=== PATIENT | female | born 1940 | race Caucasian/White ===

== ENCOUNTER 2018-10-18 16:42 | Emergency (ER) | payer OTHER ==
--- OUTSIDE RECORDS SUMMARY | 2018-10-18 16:44 | XMS REPORT | Clinical Summary ---
:1940 Author Organization [facility] Address [address] [place] [address] Care Team Providers Name Role Phone Naeem Barone MD Primary Care Provider Allergies Active Allergy Reactions Severity Noted Date Comments Latex 2017 Penicillins 2017 Medications Medication Sig Dispensed Refills Start End Date Status Date lisinopril Take 20 mg by 1 Active (PRINIVIL,ZESTRIL) mouth every 7 20 mg tablet morning. KLOR-CON SPRINKLE 8 Take 8 mEq by 1 Active mEq CR capsule mouth every 7 morning. simvastatin (ZOCOR) Take 10 mg by 3 Active 10 MG tablet mouth every 7 evening. triamterene-hydroch Take 1 tablet by 1 Active lorothiazid mouth every 7 (MAXZIDE-25) morning. 37.5-25 mg per tablet gabapentin Take 600 mg by 0 Active (NEURONTIN) 600 mg mouth 3 (three) tablet times a day. UNABLE TO FIND hylans muscle 0 Active cramps ondansetron ODT Take 1 tablet (4 30 tablet 0 11/10/19 Active (ZOFRAN-ODT) 4 MG mg total) by 06 08 disintegrating mouth every 8 tablet (eight) hours as needed for nausea or vomiting for up to 30 days. aspirin (ECOTRIN) Take 1 tablet (81 60 tablet 0 11/10/19 Active 81 MG enteric mg total) by 06 08 coated tablet mouth 2 (two) times a day for 30 days. docusate sodium Take 1 capsule 30 capsule 0 11/10/19 Active (COLACE) 100 MG (100 mg total) by 9 19 capsule mouth 2 (two) times a day as needed for constipation for up to 30 days. celecoxib Take 1 capsule 30 capsule 0 11/10/19 Active (CeleBREX) 200 MG (200 mg total) by 9 19 capsule mouth daily for 30 days. naloxegol Take 1 tablet (25 15 tablet 0 Active (MOVANTIK) 25 mg mg total) by 9 tablet tablet mouth daily before breakfast. celecoxib TK 1 C PO BID WC 2 09/27/19 Discontinued (CeleBREX) 200 MG 7 19 capsule HYDROcodone-acetami TK 1 TO 2 TS PO Q 0 09/27/19 Discontinued nophen (NORCO) 4 TO 6 H PRF PAIN 7 19 10-325 mg per tablet ondansetron TK 1 T PO Q 8 H 0 09/27/19 Discontinued (ZOFRAN) 4 MG PRF NAUSEA OR VOM 7 19 tablet methocarbamol Take 750 mg by 0 09/27/19 Discontinued (ROBAXIN) 750 MG mouth 4 (four) 19 tablet times a day. naloxegol Take 1 tablet (25 15 tablet 0 10/12/19 Discontinued (MOVANTIK) 25 mg mg total) by 9 19 tablet tablet mouth daily before breakfast. 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 09/07/2018 Overview: Added automatically from request for surgery [id number] Osteoarthritis of left knee 03/15/2017 Encounters Date Type Specialty Care Team Description 10/12/2018 Orders Only Orthopedic Surgery Yen Edmonds PA 10/11/2018 Patient Outreach Peg Osborne RN 10/10/2018 Anesthesia Event Orthopedic Surgery Guanako Busch MD 10/10/2018 Surgery Orthopedic Surgery Juan Huff Alan, MD ARTHROPLASTY, KNEE 10/10/2018 - Hospital Encounter Orthopedic Surgery Juan Huff Status post total knee replacement, right (Primary Dx); 10/11/2018 MD Berto Primary osteoarthritis of right knee; 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, initial encounter (HCC); Painful orthopaedic hardware ([facility]) 09/27/2018 Pre-Admit Testing Pre-Admission Daria Juan Preop testing ( Primary Dx); Appointment Testing MD Berto Primary osteoarthritis of right knee; 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, initial encounter ([facility]) 09/27/2018 Hospital Encounter Radiology Daria Juan Primary osteoarthritis of right knee; MD Berto 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, initial encounter ([facility]) 09/07/2018 Orders Only Orthopedic Surgery Jolene Jones, Primary osteoarthritis of right knee (Primary Dx); MA 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, initial encounter ([facility]) 09/06/2018 Office Visit Orthopedic Surgery DariaJuan jauregui Primary MD Berto osteoarthritis of left knee (Primary Dx) 09/06/2018 Orders Only Orthopedic Surgery JonesRaquelia, Primary osteoarthritis of right knee (Primary Dx); MA 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, initial encounter ([facility]) 09/05/2018 Orders Only Orthopedic Surgery Jolene Jones, Right knee pain, MA unspecified chronicity (Primary Dx) after 10/17/2017 Family History Medical History Relation Name Comments Cancer Maternal Aunt ANIL BROWN Relation Name Status Comments Maternal Aunt ANIL BROWN Social History Tobacco Use Types Packs/Day Years Used Date Never Smoker Smokeless Tobacco: Never Used Comments: N/A Alcohol Use Drinks/Week oz/Week Comments No Sex Assigned at Date Recorded Not on file Job Start Date Occupation Industry Not on file Not on file Not on file Travel History Travel Start Travel End No recent travel history available. Last Filed Vital Signs Vital Sign Reading Time Taken Blood Pressure 119/58 10/11/2018 11:18 AM IMMIGRATION PATROL INSPECTOR Pulse 77 10/11/2018 11:18 AM IMMIGRATION PATROL INSPECTOR Temperature 37 C (98.6 F) 10/11/2018 11:18 AM IMMIGRATION PATROL INSPECTOR Respiratory Rate 16 10/11/2018 11:18 AM IMMIGRATION PATROL INSPECTOR Oxygen Saturation 96% 10/11/2018 11:41 AM IMMIGRATION PATROL INSPECTOR Inhaled Oxygen Concentration - - Weight 76.5 kg (168 lb 9.6 oz) 10/10/2018 6:08 AM IMMIGRATION PATROL INSPECTOR Height 160 cm (5' 3") 10/10/2018 6:08 AM IMMIGRATION PATROL INSPECTOR Body Mass Index 29.87 10/10/2018 6:08 AM IMMIGRATION PATROL INSPECTOR Plan of Treatment Date Type Specialty Care Team Description 10/24/2018 Office Visit Orthopedic Surgery Yen Edmonds PA [address] [place] [address] [phone] Health Maintenance Due Date Last Done Comments SHINGLES VACCINES (1 of 2) 1990 PNEUMOCOCCAL POLYSACCHARIDE VACCINE AGE 65 AND OVER 2005 PNEUMOCOCCAL-13 2005 INFLUENZA VACCINE Completed 07/09/2018 Implants Implanted Type Area Manager Crisis Device Shelf Model / Identifier Expiration Serial / Lot Date Legion Narrow Ps Oxin Sz 5n Rt - [id number] IMPLANT N/A: [employer]W 02/13/2028 [id number] / Implanted: Qty: 1 on 10/10/2018 by Juan Huff MD DEVICES Knee ORTHOPAEDICS / [id number] Pin Fxtn W/O Head 3.2x88mm - [id number] Knee Joint N/A: AESCULAP ORTHO [id number] / Implanted: Qty: 2 on 03/15/2017 by Naeem Wesley MD Implants N/A / Pin Headed Thred Univl 3.2x25mm Blackwell - [id number] Knee Joint N/A: AESCULAP ORTHO [id number] / Implanted: Qty: 2 on 03/15/2017 by Naeem Wesley MD Implants N/A / Pin Headls Thred Univl 3.2x63mm Blackwell - [id number] Knee Joint N/A: AESCULAP ORTHO [id number] / Implanted: Qty: 6 on 03/15/2017 by Naeem Wesley MD Implants N/A / Implant Ptlr Sunita Ii Rsrfcng Uhmwpe 9x29mm - [id number] Knee Joint Right: ART AND 05/01/2028 [id number] / Implanted: Qty: 1 on 10/10/2018 by Juan Huff MD Implants Knee NEPHEW / ORTHOPEDICS [id number] Insert Artclr P-Stb Hi Flxon Lnr Xlpe Sz 3-4 9mm Legion - [id number] Knee Joint Right: ART AND 03/20/2024 [id number] / Implanted: Qty: 1 on 10/10/2018 by Juan Huff MD Implants Knee NEPHEW / ORTHOPEDICS [id number] Screw Obtrtr Closng For Plat 1-3+ 12mm Jaime - [id number] Orthopedic Left: AESCULAP ORTHO 11/17/2026 [id number] / Implanted: Qty: 1 on 03/15/2017 by Naeem Wesley MD Surgical Knee / Implants [id number] Component Tib Cementd P-Stb Cr Modlr Std #1+ - [id number] Orthopedic Left: AESCULAP ORTHO 04/20/2020 [id number] / Implanted: Qty: 1 on 03/15/2017 by Naeem Wesley MD Surgical Knee / Implants [id number] Insert Tib Gldng Surf Cr Deep [facility] #1/1+ 10mm - [id number] Orthopedic Left: AESCULAP ORTHO 06/20/2017 [id number] / Implanted: Qty: 1 on 03/15/2017 by Naeem Wesley MD Surgical Knee / Implants [id number]^ Patella Knee 3 Peg P2 30x8mm Jaime - [id number] Orthopedic Left: AESCULAP ORTHO 03/19/2020 [id number] / Implanted: Qty: 1 on 03/15/2017 by Naeem Wesley MD Trauma Knee / Implants [id number] Component Fml Cementd Cr Nrw Lt Rp Std #5 - [id number] Orthopedic Left: AESCULAP 07/20/2026 [id number] / Implanted: Qty: 1 on 03/15/2017 by Naeem Wesley MD Trauma Knee IMPLANT SYSTEMS / Implants [id number] Implant Tib Sunita Ii N-Por Rt Ti Sz 3 - [id number] Orthopedic Right: ART BROWN 04/23/2028 [id number] / Implanted: Qty: 1 on 10/10/2018 by Juan Huff MD Trauma Knee NEPHEW / Implants ORTHOPEDICS [id number] Cement Bone Full-Dose Premxd W/ Tobr Simplex P Pack 10/Ea - [id number] Surgical Bone Left: MARIBEL 06/19/2018 [id number] / Implanted: Qty: 2 on 03/15/2017 by Naeem Wesley MD Cement Knee ORTHOPEDICS / HIPS-KNEES [id number] Cement Bone Refobacin R 40g - [id number] Surgical Bone Right: [employer] 10/20/2020 [id number] / Implanted: Qty: 1 on 10/10/2018 by Juan Huff MD Cement Knee / [id number] Implant Procedures Procedure Name Priority Date/Time Associated Diagnosis Comments PROTHROMBIN TIME Routine 10/11/2018 3:20 Results for this WITH INR AM IMMIGRATION PATROL INSPECTOR procedure are in the results section. HC COMPLETE BLD Routine 10/11/2018 3:20 Results for this COUNT W/AUTO DIFF AM IMMIGRATION PATROL INSPECTOR procedure are in the results section. XR KNEE 1 OR 2 VW Routine 10/10/2018 9:50 Results for this RIGHT AM IMMIGRATION PATROL INSPECTOR procedure are in the results section. SURGICAL PATHOLOGY Routine 10/10/2018 9:19 Results for this REQUEST AM IMMIGRATION PATROL INSPECTOR procedure are in the results section. GRAM STAIN Timed 10/10/2018 8:14 Results for this AM IMMIGRATION PATROL INSPECTOR procedure are in the results section. AFB STAIN Timed 10/10/2018 8:14 Results for this AM IMMIGRATION PATROL INSPECTOR procedure are in the results section. FUNGUS SMEAR Timed 10/10/2018 8:14 Results for this AM IMMIGRATION PATROL INSPECTOR procedure are in the results section. 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 encounter ([facility]) AZ AN ELECTIVE Routine 10/10/2018 8:10 SUPRAGLOTTIC AIRWAY AM IMMIGRATION PATROL INSPECTOR Procedure Note - Max Wyman Jr., CRNA - 10/10/2018 8:10 AM IMMIGRATION PATROL INSPECTOR Airway Date/Time: 10/10/2018 7:42 AM Performed by: Max Wyman Jr., CRNA Authorized by: Guanako Busch MD Location: OR Urgency: Elective Difficult Airway: No Anesthesiologist: Guanako Busch MD Resident/RELOCATION ASSOCIATE/AA: Soldner, Max Ulisses Jr., RELOCATION ASSOCIATE Performed by: resident/RELOCATION ASSOCIATE/AA Preoxygenated with 100% O2: Yes C-spine Precautions Maintained Throughout: Yes Mask Ventilation: Not attempted Final Airway Type: Supraglottic airway Final LMA: I-Gel LMA Size: 4 Number of Attempts at Approach: 1 Placed by SRNA. Hilda Lips and teeth intact as in preop. 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, initial encounter ([facility]) Special Needs 1 hour; Rodrigues & Nephew; Henry Ozyp rep; Supine position with arms extended less than 90 degrees; Jermain Footholder; pink foam under Non-operative leg; Venaflow on Non-Operative leg, rodrigues and nephewarrival [id number] mg clindamycin, INTRAOSSEOUS VANC, 500 mg vanc in 200 ccs of salinepost op 2/4 AZ AN SPINAL BLOCK POST-OP PAIN Routine 10/10/2018 7:04 AM IMMIGRATION PATROL INSPECTOR Procedure Note - Guanako Busch MD - 10/10/2018 7:04 AM IMMIGRATION PATROL INSPECTOR Spinal Block Date/Time: 10/10/2018 7:03 AM Performed by: Guanako Busch MD Authorized by: Guanako Busch MD Patient Location: Pre-op Start Time: 10/10/2018 7:00 AM End Time: 10/10/2018 7:03 AM Reason for Block: at surgeon's request, post-op pain management Staff: Anesthesiologist: Guanako Busch MD Preprocedure: patient identified, IV checked, site and side verified, risks and benefits discussed, procedure verified, surgical consent complete, patient position confirmed, monitors and equipment checked and pre-op evaluation complete TIme Out Performed: 10/10/2018 6:57 AM Spinal Block: Patient Position: Sitting Prep: Betadine Monitoring: Blood pressure monitoring, continuous pulse oximetry and heart rate Approach: Midline Interspace: L2-3 Injection Technique: Single injection Needle: Needle Type: Quincke Needle Gauge: 22 G Assessment: Block assessment: No apparent complications and patient tolerated procedure well Post procedure: Patient returned to supine position Medications Administered Bupivacaine 0.75% PF (mL), 0.8 mL fentaNYL (SUBLIMAZE), 20 mcg POC GLUCOSE Routine 10/10/2018 6:01 Results for this AM IMMIGRATION PATROL INSPECTOR procedure are in the results section. URINE CULTURE Routine 09/27/2018 4:42 Results for this PM IMMIGRATION PATROL INSPECTOR procedure are in the results section. ECG 12-LEAD Routine 09/27/2018 3:20 Primary Results for this PM IMMIGRATION PATROL INSPECTOR osteoarthritis of procedure are in right knee the results Pain due to hip joint section. prosthesis, initial encounter ([facility]) TYPE AND SCREEN Routine 09/27/2018 2:59 Preop testing Results for this PM IMMIGRATION PATROL INSPECTOR procedure are in the results section. ESTIMATED GFR Routine 09/27/2018 2:57 Results for this PM IMMIGRATION PATROL INSPECTOR procedure are in the results section. HC COMPLETE BLD COUNT Routine 09/27/2018 2:57 Primary Results for this W/AUTO DIFF PM IMMIGRATION PATROL INSPECTOR osteoarthritis of procedure are in right knee the results Pain due to hip joint section. prosthesis, initial encounter ([facility]) COMPREHENSIVE Routine 09/27/2018 2:57 Primary Results for this METABOLIC PANEL PM IMMIGRATION PATROL INSPECTOR osteoarthritis of procedure are in right knee the results Pain due to hip joint section. prosthesis, initial encounter ([facility]) HEMOGLOBIN A1C Routine 09/27/2018 2:57 Primary Results for this PM IMMIGRATION PATROL INSPECTOR osteoarthritis of procedure are in right knee the results Pain due to hip joint section. prosthesis, initial encounter ([facility]) HEPATITIS B SURFACE Routine 09/27/2018 2:57 Primary Results for this ANTIBODY PM IMMIGRATION PATROL INSPECTOR osteoarthritis of procedure are in right knee the results Pain due to hip joint section. prosthesis, initial encounter (HCC) HEPATITIS C ANTIBODY Routine 09/27/2018 2:57 Primary Results for this PM IMMIGRATION PATROL INSPECTOR osteoarthritis of procedure are in right knee the results Pain due to hip joint section. prosthesis, initial encounter ([facility]) PARTIAL THROMBOPLASTIN Routine 09/27/2018 2:57 Primary Results for this TIME (PTT) PM IMMIGRATION PATROL INSPECTOR osteoarthritis of procedure are in right knee the results Pain due to hip joint section. prosthesis, initial encounter ([facility]) PROTHROMBIN TIME WITH Routine 09/27/2018 2:57 Primary Results for this INR PM IMMIGRATION PATROL INSPECTOR osteoarthritis of procedure are in right knee the results Pain due to hip joint section. prosthesis, initial encounter ([facility]) URINALYSIS SCREEN AND Routine 09/27/2018 2:57 Primary Results for this MICROSCOPY, WITH PM IMMIGRATION PATROL INSPECTOR osteoarthritis of procedure are in REFLEX TO CULTURE right knee the results Pain due to hip joint section. prosthesis, initial encounter ([facility]) XR CHEST 2 VW Routine 09/27/2018 2:33 Primary Results for this PM IMMIGRATION PATROL INSPECTOR osteoarthritis of procedure are in right knee the results Pain due to hip joint section. prosthesis, initial encounter ([facility]) XR LEG LENGTH Routine 09/06/2018 1:10 Right knee pain, Results for this EVALUATION PM IMMIGRATION PATROL INSPECTOR unspecified procedure are in chronicity the results section. XR KNEE 3 VW RIGHT Routine 09/06/2018 1:09 Right knee pain, Results for this PM IMMIGRATION PATROL INSPECTOR unspecified procedure are in chronicity the results section. after 10/17/2017 Results Prothrombin time with INR (10/11/2018 3:20 AM IMMIGRATION PATROL INSPECTOR)Only the most recent of2 resultswithin the time period is included. Prothrombin time 13.6 11.5 - 14.5 sec [facility] INR 1.1 [facility] Comment: HOSPITAL The International Normalized Ratio (INR) is a therapeutic monitoring tool for patients who are stable on oral anticoagulant therapy. An INR of 2.0-3.0 is suggested for deep vein thrombosis/pulmonary embolism. Specimen Blood Performing Organization Address City/State/Zipcode Phone Number [facility] DEPARTMENT OF PATHOLOGY AND [address] [place] [address] GENOMIC MEDICINE [facility] [address] [place] [phone] CBC with platelet and differential (10/11/2018 3:20 AM IMMIGRATION PATROL INSPECTOR)Only the most recent of2 resultswithin the time period is included. WBC 8.87 4.50 - 11.00 k/uL [facility] RBC 3.31 (L) 4.20 - 5.50 m/uL [facility] HGB 10.4 (L) 12.0 - 16.0 g/dL [facility] HCT 31.4 (L) 37.0 - 47.0 % [facility] MCV 94.9 82.0 - 100.0 fL [facility] MCH 31.4 27.0 - 34.0 pg [facility] MCHC 33.1 31.0 - 37.0 g/dL [facility] RDW - SD 42.3 37.0 - 55.0 fL [facility] MPV 10.2 8.8 - 13.2 fL [facility] Platelet count 148 (L) 150 - 400 k/uL [facility] Nucleated RBC 0.00 /100 WBC [facility] Neutrophils 83.7 (H) 39.0 - 69.0 % [facility] Lymphocytes 10.1 (L) 25.0 - 45.0 % [facility] Monocytes 5.5 0.0 - 10.0 % [facility] Eosinophils 0.3 0.0 - 5.0 % [facility] Basophils 0.2 0.0 - 1.0 % [facility] Immature granulocytes 0.2Comment: "Immature 0.0 - 1.0 % [facility] granulocytes" HOSPITAL (promyelocytes, myelocytes, metamyelocytes) Specimen Blood Performing Organization Address City/[facility]/Zipcode Phone Number [facility] DEPARTMENT OF PATHOLOGY AND [address] [place], [place] [phone] GENOMIC MEDICINE [address] [address] XR Knee 1 Or 2 Vw Right (10/10/2018 9:50 AM IMMIGRATION PATROL INSPECTOR) Narrative Performed At EXAMINATION: XR KNEE 1 OR 2 VW RIGHT [facility] INDICATION: total knee arthoplasty COMPARISON: 09/06/2018 IMPRESSION: 2 views of the right knee were obtained which demonstrate expected postoperative changes from recent total knee arthroplasty with appropriate implant alignment. [facility]-[id number] Procedure Note Interface, Radiology Results Incoming - 10/10/2018 10:07 AM IMMIGRATION PATROL INSPECTOR EXAMINATION: XR KNEE 1 OR 2 VW RIGHT INDICATION: total knee arthoplasty COMPARISON: 09/06/2018 IMPRESSION: 2 views of the right knee were obtained which demonstrate expected postoperative changes from recent total knee arthroplasty with appropriate implant alignment. [facility]-[id number] Performing Organization Address [facility] Cent[facility]ode Phone Number [facility] [address] [place] [phone] Surgical pathology request (10/10/2018 9:19 AM IMMIGRATION PATROL INSPECTOR) [facility] DEPARTMENT OF PATHOLOGY AND GENOMIC MEDICINE Surgical pathology report See link below for PDF [facility] DEPARTMENT OF Lab Report PATHOLOGY AND GENOMIC MEDICINE Result status This is Final Report [facility] DEPARTMENT OF for [id number] PATHOLOGY AND GENOMIC MEDICINE Performing Organization Address City/[facility]/Zipcode Phone Number [facility] DEPARTMENT OF PATHOLOGY AND [address] [place], [place] [phone] GENOMIC MEDICINE Fungus smear (10/10/2018 8:14 AM IMMIGRATION PATROL INSPECTOR) Fungus smear No fungi observed. [facility] Comment: Specimen Information Specimen Source: Tissue Specimen Site: Knee Specimen Tissue - Knee Performing Organization Address City/[facility]/Zipcode Phone Number [facility] DEPARTMENT OF PATHOLOGY AND [address] [place], [place] [phone] [address] [address] Aerobic culture (10/10/2018 8:14 AM IMMIGRATION PATROL INSPECTOR) Aerobic culture isolate No growth after 3 days. [facility] Comment: Specimen Information Specimen Source: Tissue Specimen Site: Knee Specimen Tissue - Knee Performing Organization Address City/[facility]/Zipcode Phone Number [facility] DEPARTMENT OF PATHOLOGY AND [address] [place] [address] [place] [phone] Gram stain (10/10/2018 8:14 AM IMMIGRATION PATROL INSPECTOR) Gram stain isolate Few WBC's [facility] No organisms seen Comment: Specimen Information Specimen Source: Tissue Specimen Site: Knee Specimen Tissue - Knee Performing Organization Address City/[facility] Centercode Phone Number [facility] DEPARTMENT OF PATHOLOGY AND [address] [place] [phone] AFB stain (10/10/2018 8:14 AM IMMIGRATION PATROL INSPECTOR) AFB stain No acid fast bacilli (AFB) seen. [facility] Comment: Specimen Information Specimen Source: Tissue Specimen Site: Knee Specimen Tissue - Knee Performing Organization Address City/[facility] Centercode Phone Number [facility] DEPARTMENT OF PATHOLOGY AND [address] [place] [phone] Anaerobic culture (10/10/2018 8:14 AM IMMIGRATION PATROL INSPECTOR) Anaerobic culture isolate No anaerobic organisms isolated. [facility] Comment: HOSPITAL Specimen Information Specimen Source: Tissue Specimen Site: Knee Specimen Tissue - Knee Performing Organization Address City/[facility] Centercode Phone Number [facility] DEPARTMENT OF PATHOLOGY AND [address] [place] [phone] POC glucose (10/10/2018 6:01 AM IMMIGRATION PATROL INSPECTOR) POC glucose 104 (H) 65 - 99 mg/dL [facility] Comment: [facility] Notified RN Meter ID: [id number] Steam Frame Operator: Yared Adames Performing Organization Address City/[facility]/Zipcode Phone Number [facility] DEPARTMENT OF PATHOLOGY AND [address] [place] [address] [address] Urine culture (09/27/2018 4:42 PM IMMIGRATION PATROL INSPECTOR) Urine culture SEE COMMENTComment: Bacteriuria [facility] screen negative. Performing Organization Address City/State/Zipcode Phone Number [facility] DEPARTMENT OF PATHOLOGY AND [address] [place] [phone] [address] ECG 12 lead (09/27/2018 3:20 PM IMMIGRATION PATROL INSPECTOR) Ventricular rate 64 [facility] MUSE Atrial rate 64 [facility] MUSE AZ interval 154 [facility] QRSD interval 94 [facility] QT interval 424 [facility] QTC interval 437 [facility] P axis 1 53 [facility] QRS axis 1 16 [facility] T wave axis 43 [facility] MUSE EKG impression Normal sinus rhythm-Minimal voltage criteria for LVH, may be normal variant-Nonspecific T wave abnormality-Abnormal ECG-In automated comparison with ECG of 15-MAR-2014 12:27,-Nonspecific T wave abnormal [facility] MUSE ity, worse in Lateral leads- Narrative Performed At Performing Organization Address City/State/Zipcode Phone Number [address] [id number] Type and screen (09/27/2018 2:59 PM IMMIGRATION PATROL INSPECTOR) ABO grouping O [facility] Rh type POS [facility] Antibody screen (gel) NEG [facility] Specimen Blood Performing Organization Address City/State/Zipcode Phone Number [facility] DEPARTMENT OF PATHOLOGY AND [address] [place] [phone] [phone] Urinalysis screen and microscopy, with reflex to culture (09/27/2018 2:57 PM IMMIGRATION PATROL INSPECTOR) Specimen site Clean catch [facility] Color, UA Straw [facility] Appearance, UA Clear [facility] Specific gravity, UA 1.014 1.001 - 1.035 [facility] pH, UA 6.0 5.0 - 8.5 [facility] Protein, UA Negative Negative [facility] Glucose, UA Negative Negative [facility] Ketones, UA Negative Negative [facility] Bilirubin, UA Negative Negative [facility] Blood, UA Negative Negative [facility] Nitrite, UA Negative Negative [facility] Urobilinogen, UA <2.0 <2.0 [facility] Leukocyte esterase, UA Negative Negative [facility] Epithelial cells, UA 1 /HPF [facility] WBC, UA 1 0 - 4 /HPF [facility] RBC, UA 1 0 - 5 /HPF [facility] Bacteria, UA None seen None seen [facility] Yeast, UA None seen [facility] Yeast with pseudohyphae, UA None seen [facility] Hyaline casts, UA 1 /LPF [facility] Specimen Urine Performing Organization Address City/[facility] Phone Number [facility] DEPARTMENT OF PATHOLOGY AND [address] [place] [address] Estimated GFR (09/27/2018 2:57 PM IMMIGRATION PATROL INSPECTOR) Estimated GFR 67 mL/min/1.73 m2 [facility] Comment: HOSPITAL CatergoryUnitsInterpretation G1 >=90 Normal or high G2 60-89Mildly decreased [id number] to moderately decreased [id number] to severely decreased G4 15-29Severely decreased G5 <15Kidney failure The eGFR was calculated using the Chronic Kidney Disease Epidemiology Collaboration (CKD-EPI) equation. Interpretation is based on recommendations of the National Kidney Foundation-Kidney Disease Outcomes Quality Initiative (NKF-KDOQI) published in 2014. Specimen Plasma specimen Performing Organization Address City/[facility] Cent[facility] Phone Number [facility] DEPARTMENT OF PATHOLOGY AND [address] [place] [address] Hepatitis C antibody (09/27/2018 2:57 PM IMMIGRATION PATROL INSPECTOR) Hepatitis C Ab Non-reactive Non-reactive [facility] Specimen Urine Performing Organization Address City/[facility]ode Phone Number [facility] DEPARTMENT OF PATHOLOGY AND [address] [place] [phone] Hepatitis B surface antibody (09/27/2018 2:57 PM IMMIGRATION PATROL INSPECTOR) Hepatitis B surface Ab Non-reactive Non-reactive [facility] Specimen Urine Performing Organization Address City/State/Zipcode Phone Number [facility] DEPARTMENT OF PATHOLOGY AND [address] [place], [place] [address] [place] [phone] Partial thromboplastin time, activated (09/27/2018 2:57 PM IMMIGRATION PATROL INSPECTOR) PTT 29.7 23.0 - 36.0 sec [facility] Comment: PTT therapeutic range for unfractionated heparin is 61.0-112.0 seconds which corresponds to Anti-Xa 0.3-0.7 U/ml. Specimen Blood Performing Organization Address City/[facility]/Zipcode Phone Number [facility] DEPARTMENT OF PATHOLOGY AND [address] [place] [address] Hemoglobin A1c (09/27/2018 2:57 PM IMMIGRATION PATROL INSPECTOR) Hemoglobin A1C 5.6 4.0 - 5.6 % [facility] Comment: HbA1c cutoffs for diagnosing diabetes: 4.0% - 5.6%=normal 5.7% - 6.4%=increased risk for diabetes (prediabetes) >=6.5%=diabetes Goals for glycemic control (ADA 2016) < 7.0%Target for non adults with diabetes. More or less stringent targets may be appropriate for individual patients. <7.5% Target for Children and adolescents with type 1 diabetes. Specimen Urine Performing Organization Address City/[facility]/Zipcode Phone Number [facility] DEPARTMENT OF PATHOLOGY AND [address] [address] Comprehensive metabolic panel (09/27/2018 2:57 PM IMMIGRATION PATROL INSPECTOR) Sodium 136 135 - 148 mEq/L [facility] Potassium 3.8 3.5 - 5.0 mEq/L [facility] Chloride 98 98 - 112 mEq/L [facility] CO2 28 24 - 31 mEq/L [facility] Anion gap 10@ANIO 7 - 15 mEq/L [facility] BUN 17 8 - 23 mg/dL [facility] Creatinine 0.83 0.50 - 0.90 mg/dL [facility] Glucose 128 (H) 65 - 99 mg/dL [facility] Calcium 9.5 8.8 - 10.2 mg/dL [facility] Protein 7.1 6.3 - 8.3 g/dL [facility] Comment: [facility] [place] 4.6-7.0 g/dL 1 week 4.4-7.6 g/dL 7 months-1year5.1-7.3 g/dL 1-2 years5.6-7.5 g/dL >3 years6.0-8.0 g/dL 18-150 6.3-8.3 g/dL Albumin 4.0 3.5 - 5.0 g/dL [facility] A/G ratio 1.3 0.7 - 3.8 [facility] Alkaline phosphatase 103 35 - 104 U/L [facility] AST 22 10 - 35 U/L [facility] ALT 17 5 - 50 U/L [facility] Total bilirubin <0.2 0.0 - 1.2 mg/dL [facility] Specimen Plasma specimen Performing Organization Address [facility] Phone Number [facility] DEPARTMENT OF PATHOLOGY AND [address] [place] [phone] GENOMIC MEDICINE [address] [address] XR Chest 2 Vw (09/27/2018 2:33 PM IMMIGRATION PATROL INSPECTOR) Narrative Performed At TWO VIEW CHEST, 09/27/2018 [facility] Clinical history:Preoperative evaluation Technique: PA and lateral views chest. Comparison: None DISCUSSION: The lungs are clear and symmetrically inflated. No pleural effusions. Cardiac size and mediastinal contour are normal. Mildly tortuous thoracic aorta. Normal pulmonary vasculature.The skeleton is grossly intact. Mild degenerative disc disease. IMPRESSION: No acute abnormality. Procedure Note [facility], Radiology Results Incoming - 09/27/2018 2:58 PM IMMIGRATION PATROL INSPECTOR TWO VIEW CHEST, 09/27/2018 Clinical history: Preoperative evaluation Technique: PA and lateral views chest. Comparison: None DISCUSSION: The lungs are clear and symmetrically inflated. No pleural effusions. Cardiac size and mediastinal contour are normal. Mildly tortuous thoracic aorta. Normal pulmonary vasculature. The skeleton is grossly intact. Mild degenerative disc disease. IMPRESSION: No acute abnormality. Performing Organization Address [facility] Cent[facility]ode Phone Number [facility] [address] [place] [phone] XR Leg Length Evaluation (09/06/2018 1:10 PM IMMIGRATION PATROL INSPECTOR) Narrative Performed At Standing leg length films were reviewed and demonstrate right RADIANT unicompartmental knee arthroplasty, knee is in valgus alignment. Performing Organization Address City/[facility]/Zipcode Phone Number [facility] [address] [place] [address] XR Knee 3 Vw Right (09/06/2018 1:09 PM IMMIGRATION PATROL INSPECTOR) Narrative Performed At 3 views of the right knee (AP, lateral, sunrise) were reviewed today and HM RADIANT demonstrate a unicompartmental knee prosthesis, there are severe degenerative changes involving the lateral compartment with joint space narrowing, peripheral osteophyte formation and subchondral sclerosis. Performing Organization Address [facility] Centercode Phone Number [facility] [address] [place] [address] after 10/17/2017 Insurance Payer Benefit Plan / Group Subscriber ID Type Phone Address AETNA MEDICARE AETNA MEDICARE HMO/PPO [facility] xxxxxxxx HMO Advance Directives Patient has advance care planning documents on file. For more information, please contact:Kyle Narayan[address] [place] [address]
--- OUTSIDE RECORDS SUMMARY | 2018-10-18 16:45 | XMS REPORT ---
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 knee Medications Medication Code Code Instructions Start End Status Dosage System Date Date Lisinopril [facility] 00085892989 20 MG Orally Jul 28, Active 1 tablet Once a day 2017 Ibuprofen ND 29031981609 200 MG Orally Active 1 tablet Three times a with food day or milk as needed Klor-Con [facility] 00701404792 8 MEQ Orally Jul 28, Active 2 capsules Sprinkle Twice a day 2018 with food Triamterene-HCT ND 36425501107 37.5-25 MG Jul 28, Active 1 tablet in Z Orally Once a 2018 the morning day Gabapentin ND 79312569254 600 MG Orally Jul 28, Active 1 tablet Once a day 2018 Simvastatin ND 67900240951 10 MG Orally Jul 28, Active 1 tablet in Once a day 2018 the evening Results No Known Results Summary Purpose eClinicalWorks Submission
--- OUTSIDE RECORDS SUMMARY | 2018-10-18 16:45 | XMS REPORT ---
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
[2018-10-18 17:22] LABS: Absolute Lymphocytes (CBC) 0.7 K/uL (0.7-4.9); Absolute Monocytes 0.9 K/uL (0.1-1.3); Absolute Neutrophil 5.4 K/uL (1.8-8.0); Basophils % 0.3 % (0-1.3); Hematocrit 32.1 % (36.0-45.0); Lymphocytes % 9.7 % (15.3-44.8); MPV 7.1 fL (7.6-11.3); Monocytes % 12.9 % (3.3-12.3); RBC Red Blood Cell Count 3.51 M/uL (3.86-4.86)
[2018-10-18 17:36] LABS: Protime INR 1.09
[2018-10-18 17:55] LABS: ALT/SGPT 15 U/L (12-78); AST/SGOT 19 U/L (15-37); Albumin 3.2 g/dL (3.4-5.0); Alkaline Phosphatase 114 U/L (45-117); BUN Blood Urea Nitrogen 19 mg/dL (7-18); Bicarbonate 27 mmol/L (21-32); Bilirubin Direct 0.3 mg/dL (0-0.2); Bilirubin Total 0.9 mg/dL (0.2-1.0); Glucose Level 122 mg/dL (74-106); Magnesium 2.2 mg/dL (1.8-2.4); NT PRO-BNP 358 pg/mL (<450); Potassium 3.6 mmol/L (3.5-5.1); Protein, Total 7.1 g/dL (6.4-8.2); Sodium Level 134 mmol/L (136-145); Troponin (Emerg Dept Use Only) < 0.02 ng/mL (0.0-0.045)
--- NOTE | 2018-10-18 18:21 | RAD REPORT ---
EXAM DESCRIPTION: CT - Chest For Pe Angio - 10/18/2018 6:11 pm CLINICAL HISTORY: Chest pain, shortness of breath, knee surgery 1 week earlier COMPARISON: None. TECHNIQUE: Dynamically enhanced 3 mm thick images of the chest were obtained during administration o f approximately 150mL Isovue 370 IV contrast. Coronal and oblique MIP reconstruction images were gene rated and reviewed. Exam utilizes a protocol to evaluate the pulmonary arterial tree. All CT scans are performed using dose optimization technique as appropriate and may include automated exposure control or mA/KV adjustment according to patient size. FINDINGS: No pulmonary emboli are identified. The aorta as imaged shows no acute or suspicious finding. No pericardial thickening or effusion. No focal consolidation or mass. No pleural effusion or pleural thickening. Scattered ground-glass opa cification is present throughout all lung stewart. This is a nonspecific CT finding can be seen with a telectasis and alveolar edema. Chronic interstitial lung disease would not be suspected without addit ional history. In the acute clinical setting this could also be associated with a viral infiltrate. No mediastinal or hilar suspicious masses. No chest wall masses or abnormal axillary lymphadenopathy. Bilateral breast implants are in place. IMPRESSION: No pulmonary emboli identified. Prominent interstitial markings and scattered ground-glass opacification. In the acute clinical setti ng this can be seen with atelectasis as well as scattered alveolar edema. Similar pattern can be seen with viral infiltrates. Chronic interstitial lung disease is not suspecte d without history of chronic lung symptoms.
--- NOTE | 2018-10-18 18:29 | RAD REPORT ---
EXAM DESCRIPTION: US - Extremity Venous Uni Ltd - 10/18/2018 5:54 pm CLINICAL HISTORY: Leg pain and swelling, recent knee surgery COMPARISON: None. TECHNIQUE: Real-time sonographic evaluation of the right lower extremity deep venous systems was per formed. FINDINGS: Normal compressibility, flow augmentation, phasic flow and spontaneous flow are identified in the right lower extremity common femoral, superficial femoral, popliteal and posterior tibial vei ns. No intraluminal filling defects seen. A 3.7 centimeter heterogeneous hypoechoic mass in the popliteal fossa believed to be in incidental Ba ker's cyst. Heterogeneity may be due to cellular debris or hemorrhagic material. No evidence for cyst rupture or hemorrhage. IMPRESSION: No DVT in the right lower extremity. Complex Child's cyst may contain cellular debris or hemorrhage. No evidence for acute rupture.
--- NOTE | 2018-10-18 19:26 | ER ---
Nurse's Notes [facility] Name: Jackie Cavanaugh Age: 78 yrs Sex: Female : 1940 Arrival Date: 10/18/2018 Time: 16:44 Bed 2 Private MD: Naeem Barone T Diagnosis: Shortness of breath;Atelectasis Presentation: 10/18 16:45 Presenting complaint: Patient states: Dr. Barone sent her over here, she had knee surgery tw2 on the and i am been tired and now i am being short of breath, he wanted me to come over for a ct. Transition of care: patient was not received from another setting of care. Onset of symptoms was October 18, 2018. Risk Assessment: Do you want to hurt yourself or someone else? Patient reports no desire to harm self or others. Initial Sepsis Screen: Does the patient meet any 2 criteria? No. Patient's initial sepsis screen is negative. Does the patient have a suspected source of infection? No. Patient's initial sepsis screen is negative. Care prior to arrival: None. 16:45 Method Of Arrival: Wheelchair tw2 16:45 Acuity: ALEXUS 2 tw2 Triage Assessment: 16:49 General: Appears in no apparent distress. Behavior is calm, cooperative, appropriate tw2 for age. Pain: Denies pain. Respiratory: Reports shortness of breath Onset: The symptoms/episode began/occurred couple of days, the patient has mild shortness of breath. Historical: - Allergies: 16:49 PENICILLINS; tw2 16:49 Latex, Natural Rubber; tw2 - Home Meds: 16:49 hydrocodone-acetaminophen 10-325 mg Oral tab 1 tab every 4 hours [Active]; aspirin 81 tw2 mg Oral TbEC 2 tabs once daily [Active]; Movantik 25 mg oral tab 1 tab once daily [Active]; chlor con [Active]; Lopid 600 mg Oral tab 1 tab 2 times per day [Active]; lisinopril 40 mg Oral tab 1 tab once daily [Active]; - PSHx: 16:49 right knee; tw2 - Immunization history:: Adult Immunizations. - Social history:: Smoking status: . - Ebola Screening: : Patient denies travel to an Ebola-affected area in the 21 days before illness onset. Screenin:54 Abuse screen: Denies threats or abuse. Denies injuries from another. Nutritional aj screening: No deficits noted. Tuberculosis screening: No symptoms or risk factors identified. Fall Risk None identified. Assessment: 17:24 General: Appears in no apparent distress. comfortable, Behavior is calm, cooperative, aj appropriate for age. Pain: Denies pain. Neuro: Level of Consciousness is awake, alert, obeys commands, Oriented to person, place, time, situation, Appropriate for age. Cardiovascular: Reports shortness of breath, Capillary refill < 3 seconds in bilateral fingers Patient's skin is warm and dry. Rhythm is regular. Respiratory: Reports shortness of breath at rest Airway is patent Respiratory effort is even, unlabored, Respiratory pattern is regular, symmetrical, Breath sounds are clear bilaterally. Derm: Skin is intact, is healthy with good turgor, Skin is pink, warm \T\ dry. normal. 18:47 Reassessment: Patient appears in no apparent distress at this time. No changes from aj previously documented assessment. Patient and/or family updated on plan of care and expected duration. Pain level reassessed. Patient is alert, oriented x 3, equal unlabored respirations, skin warm/dry/pink. Patient denies pain at this time. 19:10 Reassessment: Awaiting CASH REGISTER BALANCER to call Dr. Barone to determine criteria for admission. tl2 General: Appears in no apparent distress. comfortable, Behavior is calm, cooperative, appropriate for age. Pain: Denies pain. Neuro: Level of Consciousness is awake, alert, obeys commands, Oriented to person, place, time, situation. Cardiovascular: Denies chest pain, shortness of breath. Respiratory: Airway is patent Respiratory effort is even, unlabored, Respiratory pattern is regular, symmetrical, Breath sounds are clear bilaterally. GI: No signs and/or symptoms were reported involving the gastrointestinal system. : No signs and/or symptoms were reported regarding the genitourinary system. Derm: Skin is pink, warm \T\ dry. Musculoskeletal: Swelling present in right knee. 19:48 Reassessment: Patient appears in no apparent distress at this time. Patient and/or tl2 family updated on plan of care and expected duration. Pain level reassessed. Patient is alert, oriented x 3, equal unlabored respirations, skin warm/dry/pink. Pt and family verbalized understanding of discharge instructions, need for follow up. Vital Signs: 16:46 BP 168 / 74; Pulse 67; Resp 17; Temp 97.6(TE); Pulse Ox 98% on R/A; Weight 77.11 kg tw2 (R); Height 5 ft. 3 in. (160.02 cm) (R); Pain 0/10; 17:53 BP 145 / 50; Pulse 69; Resp 18; Pulse Ox 97% on R/A; aj 18:48 BP 154 / 69; Pulse 66; Resp 20; Pulse Ox 98% on R/A; aj 19:16 BP 153 / 86; Pulse 64; Resp 18; Pulse Ox 100% on R/A; tl2 16:46 Body Mass Index 30.11 (77.11 kg, 160.02 cm) tw2 ED Course: 16:44 Patient arrived in ED. sb2 16:44 Naeem Barone MD is Private Physician. sb2 16:46 Triage completed. tw2 16:49 Arm band placed on. tw2 16:50 Edmundo Younger RN is Primary Nurse. jl7 16:51 Dima Aviles NP is PHCP. pm1 16:51 Mc Rayo MD is Attending Physician. pm1 17:04 Radiology exam delayed due to lab results not completed at this time. (BUN/Creatinine). sj 17:15 Radiology exam delayed due to lab results not completed at this time. (BUN/Creatinine). sj 17:24 Inserted saline lock: 22 gauge in right antecubital area, using aseptic technique. aj Blood collected. 17:33 Radiology exam delayed due to pt was getting an ultrasound done. az 17:43 Radiology exam delayed due to lab results not completed at this time. (BUN/Creatinine). vm2 17:54 Extremity Venous Uni Ltd US In Process Unspecified. EDMS 17:[address] nj 18:12 CT Chest For PE Angio In Process Unspecified. EDMS 18:17 X-ray completed. Patient tolerated procedure well. az 18:18 XRAY Chest (1 view) In Process Unspecified. EDMS 19:01 Primary Nurse role handed off by Edmundo Younger, ANA MARIA jl7 19:10 Patient has correct armband on for positive identification. Placed in gown. Bed in low tl2 position. Call light in reach. Side rails up X2. 19:10 No provider procedures requiring assistance completed. IV is patent. tl2 19:51 IV discontinued, intact, bleeding controlled, No redness/swelling at site. Pressure tl2 dressing applied. Administered Medications: No medications were administered Outcome: 19: Discharge ordered by MD. pm1 19:50 Discharged to home via wheelchair, with family. tl2 19:50 Condition: stable 19:50 Discharge instructions given to patient, family, Instructed on discharge instructions, follow up and referral plans. 19:51 Patient left the ED. tl2 Signatures: Dispatcher [employer] EDMS Mónica Kang RN RN Chrissy Saleh Patrick, NP CASH REGISTER BALANCER pm1 Moira Miranda RN RN tw2 Emmanuelle Gutierrez RN RN tl2 Tawanda Jacobs Jahala RN RN jl7 Tori Matias 2 Leatha Hall 2 Angelique Rutherford Corrections: (The following items were deleted from the chart) 16:47 16:45 Acuity: ALEXUS 3 tw2 tw2 17:54 17:53 BP 145 / 50; Pulse 69bpm; Resp 18bpm; Pulse Ox 94% RA; rian modi
--- NOTE | 2018-10-18 19:26 | EDPHYS ---
Physician Documentation [facility] Name: Jackie Cavanaugh Age: 78 yrs Sex: Female : 1940 Arrival Date: 10/18/2018 Time: 16:44 Bed 2 Private MD: Naeem Barone T ED Physician Mc Rayo HPI: 10/18 18:00 This 78 yrs old Female presents to ER via Wheelchair with complaints of pm1 Shortness Of Breath - SENT BY DR BARONE. 18:00 The patient has shortness of breath rehab for right knee surgery. Onset: The pm1 symptoms/episode began/occurred Day after surgery. Duration: The symptoms are intermittent, with exertion. The patient's shortness of breath is aggravated by exertion, is alleviated by rest. Associated signs and symptoms: Pertinent negatives: non-productive cough, productive cough, fever, nausea, vomiting. The patient has been recently seen by a physician: the patient's primary care provider, Dr. Barone earlier today, with similar presenting complaints, told to go to the ER to rule out PE. Patient had right knee replacement on 10/10. Patient reports shortness of breath present day after surgery. patient has not been using her incentive spirometer as directed. Historical: - Allergies: 16:49 PENICILLINS; tw2 16:49 Latex, Natural Rubber; tw2 - Home Meds: 16:49 hydrocodone-acetaminophen 10-325 mg Oral tab 1 tab every 4 hours [Active]; aspirin 81 tw2 mg Oral TbEC 2 tabs once daily [Active]; Movantik 25 mg oral tab 1 tab once daily [Active]; chlor con [Active]; Lopid 600 mg Oral tab 1 tab 2 times per day [Active]; lisinopril 40 mg Oral tab 1 tab once daily [Active]; - PSHx: 16:49 right knee; tw2 - Immunization history:: Adult Immunizations. - Social history:: Smoking status: . - Ebola Screening: : Patient denies travel to an Ebola-affected area in the 21 days before illness onset. ROS: 18:00 Constitutional: Negative for fever, chills, and weight loss, Eyes: Negative for injury, pm1 pain, redness, and discharge, ENT: Negative for injury, pain, and discharge, Neck: Negative for injury, pain, and swelling, Cardiovascular: Negative for chest pain, palpitations, and edema, Abdomen/GI: Negative for abdominal pain, nausea, vomiting, diarrhea, and constipation, Back: Negative for injury and pain. 18:00 : Negative for injury, bleeding, discharge, and swelling, MS/Extremity: Negative for injury and deformity, Skin: Negative for injury, rash, and discoloration, Neuro: Negative for headache, weakness, numbness, tingling, and seizure. 18:00 Respiratory: Positive for shortness of breath, on exertion. Negative for cough, sputum production, wheezing. Exam: 18:00 Constitutional: This is a well developed, well nourished patient who is awake, alert, pm1 and in no acute distress. Head/Face: Normocephalic, atraumatic. Eyes: Pupils equal round and reactive to light, extra-ocular motions intact. Lids and lashes normal. Conjunctiva and sclera are non-icteric and not injected. Cornea within normal limits. Periorbital areas with no swelling, redness, or edema. ENT: Nares patent. No nasal discharge, no septal abnormalities noted. Tympanic membranes are normal and external auditory canals are clear. Oropharynx with no redness, swelling, or masses, exudates, or evidence of obstruction, uvula midline. Mucous membranes moist. Neck: Trachea midline, no thyromegaly or masses palpated, and no cervical lymphadenopathy. Supple, full range of motion without nuchal rigidity, or vertebral point tenderness. No Meningismus. Chest/axilla: Normal chest wall appearance and motion. Nontender with no deformity. No lesions are appreciated. Cardiovascular: Regular rate and rhythm with a normal S1 and S2. No gallops, murmurs, or rubs. Normal PMI, no JVD. No pulse deficits. Respiratory: Lungs have equal breath sounds bilaterally, clear to auscultation and percussion. No rales, rhonchi or wheezes noted. No increased work of breathing, no retractions or nasal flaring. Abdomen/GI: Soft, non-tender, with normal bowel sounds. No distension or tympany. No guarding or rebound. No evidence of tenderness throughout. Back: No spinal tenderness. No costovertebral tenderness. Full range of motion. 18:00 Musculoskeletal/extremity: Extremities: grossly normal except: noted in the right knee: swelling. 18:00 Skin: Appearance: normal except for affected area, ecchymosis, noted on the, right knee, that are mild. 18:00 Neuro: Orientation: is normal, Motor: is normal, moves all fours, Gait: is steady, at a normal pace, without difficulty, with walker. Vital Signs: 16:46 BP 168 / 74; Pulse 67; Resp 17; Temp 97.6(TE); Pulse Ox 98% on R/A; Weight 77.11 kg tw2 (R); Height 5 ft. 3 in. (160.02 cm) (R); Pain 0/10; 17:53 BP 145 / 50; Pulse 69; Resp 18; Pulse Ox 97% on R/A; aj 18:48 BP 154 / 69; Pulse 66; Resp 20; Pulse Ox 98% on R/A; aj 19:16 BP 153 / 86; Pulse 64; Resp 18; Pulse Ox 100% on R/A; tl2 16:46 Body Mass Index 30.11 (77.11 kg, 160.02 cm) tw2 MDM: 16:55 Patient medically screened. pm1 17:39 ED course: Negative for DVT per electrocardiographic technician. pm1 18:00 Data reviewed: vital signs. Data interpreted: Pulse oximetry: on room air is 100 %. pm1 Interpretation: normal. 19:24 Physician consultation: Naeem Barone MD was called at 19:24, was contacted at 19:24, pm1 regarding patient's condition, outpatient follow-up, as needed. 19:24 Counseling: I had a detailed discussion with the patient and/or guardian regarding: the pm1 historical points, exam findings, and any diagnostic results supporting the discharge/admit diagnosis, lab results, radiology results, the need for outpatient follow up, to return to the emergency department if symptoms worsen or persist or if there are any questions or concerns that arise at home. 10/18 17:02 Order name: Basic Metabolic Panel; Complete Time: 18:00 pm1 10/18 17:02 Order name: CBC with Diff; Complete Time: 18:00 pm1 10/18 17:02 Order name: LFT's; Complete Time: 18:00 pm1 10/18 17:02 Order name: Magnesium; Complete Time: 18:00 pm1 10/18 17:02 Order name: NT PRO-BNP; Complete Time: 18:00 pm1 10/18 17:02 Order name: PT-INR; Complete Time: 18:00 pm10/18 17:02 Order name: Troponin (emerg Dept Use Only); Complete Time: 18:00 pm10/18 17:02 Order name: XRAY Chest (1 view); Complete Time: 19:33 pm10/18 17:02 Order name: Cardiac monitoring; Complete Time: 17:26 pm10/18 17:02 Order name: EKG - Nurse/Tech; Complete Time: 17:26 pm10/18 17:02 Order name: IV Saline Lock; Complete Time: 17:26 pm10/18 17:02 Order name: CT Chest For PE Angio; Complete Time: 18:51 pm10/18 17:02 Order name: Extremity Venous Uni Ltd US; Complete Time: 18:51 pm10/18 17:02 Order name: Labs collected and sent; Complete Time: 17:26 pm10/18 17:02 Order name: O2 Per Protocol; Complete Time: 17:26 pm10/18 17:02 Order name: O2 Sat Monitoring; Complete Time: 17: pm Administered Medications: No medications were administered Disposition: 10/19 18:41 Co-signature as Attending Physician, Mc Rayo MD. ma2 Disposition: 10/18/18 19:26 Discharged to Home. Impression: Shortness of breath, Atelectasis. - Condition is Stable. - Discharge Instructions: Atelectasis, Adult, Shortness of Breath. - Medication Reconciliation Form, Thank You Letter, Antibiotic Education, Prescription Opioid Use form. - Follow up: Emergency Department; When: As needed; Reason: Worsening of condition. Follow up: Private Physician; When: 2 - 3 days; Reason: Recheck today's complaints, Continuance of care, Re-evaluation by your physician. - Problem is new. - Symptoms have improved. Signatures: Dispatcher [employer] EDMS Dima Aviles, KAIN DIRECTOR OF PLAYER PERSONNEL pm1 Moira Miranda RN RN tw2 Emmanuelle Gutierrez RN RN tl2 Mc Rayo MD MD ma2 Corrections: (The following items were deleted from the chart) 10/18 19:51 19:26 10/18/2018 19:26 Discharged to Home. Impression: Shortness of breath; tl2 Atelectasis. Condition is Stable. Forms are Medication Reconciliation Form, Thank You Letter, Antibiotic Education, Prescription Opioid Use. Follow up: Emergency Department; When: As needed; Reason: Worsening of condition. Follow up: Private Physician; When: 2 - 3 days; Reason: Recheck today's complaints, Continuance of care, Re-evaluation by your physician. Problem is new. Symptoms have improved. pm1
--- NOTE | 2018-10-18 19:28 | RAD REPORT ---
EXAM DESCRIPTION: RAD - Chest Single View - 10/18/2018 6:21 pm CLINICAL HISTORY: Chest pain, shortness of breath COMPARISON: No remote imaging TECHNIQUE: AP portable chest image was obtained 1817 hours . FINDINGS: No focal mass or consolidation. Interstitial markings are prominent with no baseline for c omparison. This could be chronic disease or a mild interstitial edema or infiltrate. Heart size is up per normal. Vasculature within normal limits. No measurable pleural effusion and no pneumothorax. No acute bony abnormality seen. No acute aortic findings suspected. IMPRESSION: No mass, consolidation or significant failure finding. Prominent interstitial markings on a baseline study. This could be chronic disease or indicate a mini mal edema or infiltrate.
[2018-10-18] MEDS ORDERED: ONDANSETRON 4 MG/2 ML VIAL ONE (19:45)
[2018-10-18] MEDS ORDERED: NA CHLORIDE 0.9% 1,000 ML ONE (19:45)
[2018-10-18] MEDS ORDERED: MORPHINE 4 MG/ML SYR ONE (19:45)
== END 2018-10-18 19:51 | disposition home or self-care (01) ==
LOC: ER 16:42
DX: J98.11 Atelectasis (principal); Z79.82 Long term (current) use of aspirin; Z88.0 Allergy status to penicillin; Z91.040 Latex allergy status; Z91.048 Other nonmedicinal substance allergy status; Z96.651 Presence of right artificial knee joint
CPT/HCPCS: 36415; 71045; 71275; 80048; 80076; 83735; 83880; 84484; 85025; 85610; 93971; J2405; J7030; Q9967; 99284

== ENCOUNTER 2020-04-12 07:34 | Day surgery (SDC) | payer OTHER ==
--- OUTSIDE RECORDS SUMMARY | 2020-04-12 07:37 | XMS REPORT | Summary of Care ---
:1940 Author Organization [facility] Address [address] [place] [id number] Care Team Providers Name Role Phone Demetrius Barone Primary Care Provider Reason for Visit Reason Comments Notification Encounter Details Date Type Department Care Team Description 04/11/2020 Telephone [facility] Malik Paz MD Notification Neurology-[address] [place] [id number] Suite [facility] [phone] [place] [address] [facility] [phone] Allergies Active Allergy Reactions Severity Noted Date Comments Latex Other - See comments 09/25/2015 Blister s Penicillins Rash 09/25/2015 documented as of this encounter (statuses as of 04/11/2020) Medications Medication Sig Dispensed Refills Start Date End Date Status simvastatin 10 mg simvastatin 10 mg 0 01/12/2017 Active tablet tablet lisinopril 20 mg lisinopril 20 mg 0 01/29/2017 Active tablet tablet triamterene-hydrochlo triamterene 37.5 0 12/29/2016 Active rothiazid 37.5-25 mg mg-hydrochlorothiaz tablet ella 25 mg tablet potassium chloride Klor-Con Sprinkle 8 0 12/29/2016 Active (KLOR-CON SPRINKLE) 8 mEq mEq CR capsule capsule,extended release gabapentin 600 mg Take 600 mg by 0 Active tablet mouth. montelukast 10 mg montelukast 10 mg 0 Active tablet tablet methocarbamol 750 mg Take 750 mg by 0 Active tablet mouth as needed. fexofenadine (JUAN Take 180 mg by 0 Active ALLERGY) 180 mg mouth daily. tablet BABY ASPIRIN ORAL Take by mouth. 0 Active MULTIVITAMIN ORAL Take by mouth. 0 Active COQ10, LIPOSOMAL Take by mouth. 0 Active UBIQUINOL, ORAL Lactobacillus combo Take by mouth. 0 Active no.23 (MICHELLE PROBIOTIC) 14 billion cell Cap gluc cantu/chondro cantu Take by mouth. 0 Active A/vit C/Mn (GLUCOSAMINE 1500 COMPLEX ORAL) fish,bora,flax Take by mouth. 0 Active oils-om3,6,9no1 (OMEGA 3-6-9) 1,200 mg Cap methocarbamol Take 2 tablets by 60 tablet 5 04/28/2019 Active (ROBAXIN) 500 mg mouth daily. tabletIndications: Spasm of muscle documented as of this encounter (statuses as of 04/11/2020) Active Problems Not on filedocumented as of this encounter (statuses as of 04/11/2020) Social History Tobacco Use Types Packs/Day Years Used Date Never Smoker Alcohol Use Drinks/Week oz/Week Comments Never 0 Standard drinks or equivalent 0.0 Alcohol Habits Answer Date Recorded How often do you have a drink containing alcohol? Never 02/28/2019 How many drinks containing alcohol do you have on a typical Not asked day when you are drinking? How often do you have six or more drinks on one occasion? No t asked Sex Assigned at Date Recorded Not on file Job Start Date Occupation Industry Not on file Not on file Not on file Travel History Travel Start Travel End No recent travel history available. documented as of this encounter Last Filed Vital Signs Not on filedocumented in this encounter Plan of Treatment Health Maintenance Due Date Last Done Comments DTaP,Tdap,and Td Vaccines (1 - Tdap) 1951 Zoster Recombinant Vaccine (SHINGRIX) (1 of 2) 1990 Medicare Wellness Visit 2005 Osteoporosis Screening 2005 PNEUMOCOCCAL VACCINES 65+ (1 of 2 - PCV13) 2005 Depression Screening 04/28/2020 04/28/2019 INFLUENZA VACCINE (#1) 2020 documented as of this encounter Results Not on filedocumented in this encounter Insurance Payer Benefit Plan Subscriber ID Effective Phone Address Typ e / Group Dates AETNA - AETNA [id number] 2014-[id number] [address] BOX Medic are Adv MANAGED MEDICARE [place] nt [id number] [place] [phone] documented as of this encounter
--- OUTSIDE RECORDS SUMMARY | 2020-04-12 07:37 | XMS REPORT | Clinical Summary ---
:1940 Author Organization [facility] Address [address] [place] [address] Care Team Providers Name Role Phone Demetrius Barone MD Primary Care Provider Allergies Active Allergy Reactions Severity Noted Date Comments Latex 2017 Penicillins 2017 Medications Medication Sig Dispensed Refills Start Date End Date Status lisinopril Take 20 mg by 1 01/29/2017 Acti ve (PRINIVIL,ZESTRIL) 20 mouth every mg tablet morning. KLOR-CON SPRINKLE 8 mEq Take 8 mEq by 1 12/29/2016 Active CR capsule mouth every morning. simvastatin (ZOCOR) 10 Take 10 mg by 3 01/12/2017 Active MG tablet mouth every evening. triamterene-hydrochloro Take 1 tablet by 1 7 Active thiazid (MAXZIDE-25) mouth every 37.5-25 mg per tablet morning. gabapentin (NEURONTIN) Take 600 mg by 0 Active 600 mg tablet mouth 3 (three) times a day. UNABLE TO FIND hylans muscle 0 A ctive cramps naloxegol (MOVANTIK) 25 Take 1 tablet (25 15 tablet 0 10/12/19 19 Active mg tablet tablet mg total) by mouth daily before breakfast. 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 Last Filed Vital Signs Not on file Plan of Treatment Health Maintenance Due Date Last Done Comments SHINGLES VACCINES (#1) 1990 65+ PNEUMOCOCCAL VACCINE (1 of 2 - PCV13) 2005 INFLUENZA VACCINE 04/20/2020 07/09/2018 Implants Implanted Type Area Clay Miner Device Shelf Model / Identifier Expiration Serial / Lot Date Legion Narrow Ps Oxin Sz 5n Rt - [id number] IMPLANT N/A: SM ITH & NEPHEW 02/13/2028 [id number] / Implanted: Qty: 1 on 10/10/2018 by Juan Huff MD at [facility] DEVICES Knee ORTHOPAEDICS / [id number] Pin Fxtn W/O Head 3.2x88mm - [id number] Knee Joint N/A: AESCULAP O RTHO [id number] / Implanted: Qty: 2 on 03/15/2017 by Naeem Wesley MD at [facility] Implants N/A / Pin Headed Thred Univl 3.2x25mm [place] - [id number] Knee Joint N/A: AESCULAP ORTHO [id number] / Implanted: Qty: 2 on 03/15/2017 by Naeem Wesley MD at [facility] Implants N/A / Pin Headls Thred Univl 3.2x63mm [place] - [id number] Knee Joint N/A: AESCULAP ORTHO [id number] / Implanted: Qty: 6 on 03/15/2017 by Naeem Wesley MD at [facility] Implants N/A / Implant Ptlr Sunita Ii Rsrfcng mwpe 9x29mm - [id number] Knee Joint Right: CORDOVA AND 05/01/2028 [id number] / Implanted: Qty: 1 on 10/10/2018 by Juan Huff MD at [facility] Implants Knee NEPHEW / ORTHOPEDICS [id number] Insert Artclr P-Stb Hi Flxon Lnr Xlpe Sz 3-4 9mm Legion - [id number] Knee Joint Right: CORDOVA AND 03/20/2024 [id number] / Implanted: Qty: 1 on 10/10/2018 by Juan Huff MD at [facility] Implants Knee NEPHEW / ORTHOPEDICS [id number] Screw Obtrtr Closng For Plat 1-3+ 12mm [place] - [id number] Orth opedic Left: AESCULAP ORTHO 11/17/2026 [id number] / Implanted: Qty: 1 on 03/15/2017 by Naeem Wesley MD at [facility] Surgical Knee / Implants [id number] Component Tib Cementd P-Stb Cr Modlr Std #1+ - [id number] Orthope dic Left: AESCULAP ORTHO 04/20/2020 [id number] / Implanted: Qty: 1 on 03/15/2017 by Naeem Wesley MD at [facility] Surgical Knee / Implants [id number] Insert Tib Gldng Surf Cr Deep [facility] #1/1+ 10mm - [id number] Orthop edic Left: AESCULAP ORTHO 06/20/2017 [id number] / Implanted: Qty: 1 on 03/15/2017 by Naeem Wesley MD at [facility] Surgical Knee / Implants [id number]^ Patella Knee 3 Peg P2 30x8mm [place] - [id number] Orthopedic Left: AESCULAP ORTHO 03/19/2020 [id number] / Implanted: Qty: 1 on 03/15/2017 by Naeem Wesley MD at [facility] Trauma Knee / Implants [id number] Component Fml Cementd Cr Nrw Lt Rp Std #5 - [id number] Orthopedic Left: AESCULAP 07/20/2026 [id number] / Implanted: Qty: 1 on 03/15/2017 by Naeem Wesley MD at [facility] Trauma Knee IMPLANT SYSTEMS / Implants [id number] Implant Tib Sunita Ii N-Por Rt Ti Sz 3 - [id number] Orthopedic Right: CORDOVA AND 04/23/2028 [id number] / Implanted: Qty: 1 on 10/10/2018 by Juan Huff MD at [facility] Trauma Knee NEPHEW / Implants ORTHOPEDICS [id number] Cement Bone Full-Dose Premxd W/ Tobr Simplex P Pack 10 /Ea - [id number] Surgical Bone Left: MARIBEL 06/19/2018 [id number] / Implanted: Qty: 2 on 03/15/2017 by Naeem Wesley MD at [facility] Cement Knee ORTHOPEDICS / HIPS-KNEES [id number] Cement Bone Refobacin R 40g - [id number] Surgical Bone Right: [employer] 10/20/2020 [id number] / Implanted: Qty: 1 on 10/10/2018 by Juan Huff MD at [facility] Cement Knee / [id number] Implant Description:partial right knee implant breast implants Results Not on fileafter 04/12/2019 (Home) [address] [place] [id number] Advance Directives For more information, please contact: [phone] Type Date Recorded 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
--- OUTSIDE RECORDS SUMMARY | 2020-04-12 07:37 | XMS REPORT | Continuity of Care Document ---
:1940 Author Organization [facility] t Address [address] [place] [address] [address]. [address] [place] [address] Care Team Providers Name Role Phone Demetrius Barone MD Primary Care Physician Brandi CARDOZO, Johnnie Attending Clinician Winsome Boswell Attending Clinician Doctor Unassigned, Name Attending Clinician Unavailable Payers Payer Name Policy Type Policy Number Effective Date Expiration Date S javier AETNA xxxxxxxx 2013 [place] MEDICAREAETNA 00:00:00 [place] MEDICARE HMO/PP[facility] 4-PresentHMO Problems Condition Condition Condition Status Onset Resolution Last Treating Co mments Source Name Details Category Date Date Treatment Clinician Date Pain of Pain of Disease Active [place] left hip left hip 01-24 Method i joint joint 00:00: st 00 Status Status Disease Active [place] post post 01-24 Methodi revision revision 00:00: st of total of total 00 knee knee replacemen replacemen t, right t, right Status Status Disease Active [place] post total post total 2-04 Me [facility] knee knee 00:00: st replacemen replacemen 00 t using t using cement, cement, right right Painful Painful Disease Active [place] orthopaedi orthopaedi - Me thodi c hardware c hardware 00:00: st 00 Primary Primary Disease Active 2017-09 Overview: [place] osteoarthr osteoarthr - Added Me th[facility] itis of itis of 00:00: automatic st right knee right knee 00 ally from request for surgery [id number] Pain due Pain due Disease Active 2017-09 Overview: [place] to hip to hip - Added Methodi joint joint 00:00: automatic st prosthesis prosthesis 00 ally from request for surgery [id number] Osteoarthr Osteoarthr Disease Active [place] itis of itis of 03-15 Methodi left knee left knee 00:00: st 00 Status Status Problem Active [facility] post right post right Alcira kes - knee knee Memoria replacemen replacemen l t [facility] Primary Primary Problem Active [facility] osteoarthr osteoarthr Alcira kes - itis of itis of Memoria right knee right knee l Outpat[facility] ent Clinics Allergies, Adverse Reactions, Alerts Allergy Allergy Status Severity Reaction(s) Onset Inactive Treating Comm ents Source Name Type Date Date Clinician Penicill DA Active 2018-09 [facility] 10-26 [place] [facility] [address] latex DA Active 2018-09 [facility] 10-26 [place] 00:00: [facility] [address] TAPE DA Active 2018-09 [facility] 10-26 [place] 00:00: [facility]c [address] Latex Propensi Active [place] ty to 03-11 Methodi adverse 00:00: st reaction 00 s to drug Penicill Propensi Active [facility] n ins ty to 03-11 Methodi adverse 00:00: st reaction 00 s to drug penicill Adverse Active Info Not [facility] Reaction Available [facility] Family History Family Member Diagnosis Comments Start Date Stop Date Source Maternal aunt Cancer [place] Met daveist Social History Social Habit Start Date Stop Date Quantity Comments Source Sex Assigned At [facility] ethodist Alcohol intake 2018-10-11 2018-10-11 Current [facility] thodist 00:00:00 00:00:00 non-drinker of alcohol (finding) Tobacco Comment 2018-09-06 2018-09-06 N/A [facility] ethodist 00:00:00 00:00:00 Smoking Status Start Date Stop Date Source Never smoker [place] Methodis t Medications Ordered Filled Start Stop Current Ordering Indication Dosage Frequency Signature Comments Components Source Medication Medication Date Date Medication? Clinician (SIG) Name Name naloxegol Yes 25mg QD Take 1 [place] (MOVANTIK) - tablet (25 Met hodi 25 mg 00:00: mg total) st tablet 00 by mouth tablet daily before breakfast. gabapentin Yes 600mg [id number] Take 600 [place] (NEURONTIN) 10-11 [id number] mg by M ethodi 600 mg 14:27: 3D mouth 3 st tablet 04 (three) times a day. UNABLE TO Yes hylans [place] FIND 10-11 muscle Methodi 14:27: cramps st 04 Lisinopril Lisinopril 2017-09 Yes Dejan [address] [facility] 1-08 [place] [facility] - 00:[facility]: [facility] 00 [facility] Klor-Con Klor-Con 2017-09 Yes Dejan [address] [address] Sprinkle Sprinkle 09-27 [place] with food Alcira kes - 00:00: Memoria 00 [facility] Clinics Triamterene Triamterene 2017-09 Yes Dejan [address] [facility] [address] -HCTZ -HCTZ 08 [place] in the [facility] - 00:00: morning Memoria 00 [facility] ent [facility] Gabapentin Gabapentin 2017-09 Yes Dejan [address] [address] 1-08 [place] [facility] - 00:[facility]: Memoria 00 [facility] ent [facility] Simvastatin Simvastatin 2017-09 Yes Dejan [address] [facility] [address] 1-08 [place] in the [facility] - 00:00: evening Memoria 00 [facility] Clinics lisinopril Yes 20mg QD Take 20 mg [place] (PRINIVIL,Z 5-12 by mouth Meth divina ESTRIL) 20 00:00: every st mg tablet 00 morning. simvastatin Yes 10mg QD Take 10 mg [place] (ZOCOR) 10 4-25 by mouth Metho di MG tablet 00:00: every st 00 evening. KLDC-CON Yes 8meq QD Take 8 mEq Aashish ston SPRINKLE 8 4-11 by mouth Metho di mEq CR 00:00: every st capsule 00 morning. triamterene Yes 1{tbl} QD Take 1 [place] -hydrochlor 4-11 tablet by Met courtney corey 00:00: mouth st (MAXZIDE-25 00 every ) 37.5-25 morning. mg per tablet Ibuprofen Ibuprofen Yes Dejan [address] [facility] [place] with food [facility] - or milk as Memoria needed l Outpati ent Clinics Procedures This patient has no known procedures. Plan of Care Planned Activity Planned Date Details Comments Source Future Scheduled 2020-04-20 INFLUENZA VACCINE [place] [facility] Test 00:00:00 [code = INFLUENZA VACCINE] Future Scheduled 2005 65+ PNEUMOCOCCAL [place] [facility] Test 00:00:00 VACCINE (1 of 2 - PCV13) [code = 65+ PNEUMOCOCCAL VACCINE (1 of 2 - PCV13)] Future Scheduled 1990 [facility] 00:00:00 [code = SHINGLES VACCINES (#1)] Encounters Start End Encounter Admission Attending Care Care Encounter Source Date/Time Date/Time Type Type Clinicians Facility Department ID 2020-04-11 2020-04-11 Telephone [facility] [id number] 00:00:00 00:00:00 Malik Ryena [id number] [place] [id number] Profdanni [phone] [address] 2019-11-30 2019-11-30 Telephone [facility] [id number] 00:00:00 00:00:00 Malik Reyna [id number] [place] [id number] Professio [id number] [address] 2019-11-30 2019-11-30 Refill [facility] [id number] 00:00:00 00:00:00 Malik Reyna [id number] [place] [id number] Professio [id number] [address] 2019-05-15 2019-05-15 Orders Doctor MICHEL [id number] 00:00:00 00:00:00 Only Unassigned, ELLIOTT [id number] [place] [facility] [id number] 2019-04-28 2019-04-28 Office SHIRA Paz [id number] 14:32:05 15:50:16 Visit Malik Reyna [id number] [place] [id number] Yaya [id number] [address] 2019-04-12 2019-04-12 Patient Doctor ANAND [id number] 00:00:00 00:00:00 Secure Msg Unassigned, ELLIOTT [id number] [place] [facility] [id number] 2019-04-07 2019-04-07 Patient Doctor ANAND [id number] 00:00:00 00:00:00 Secure Msg Unassigned, ELLIOTT [id number] [place] [facility] [id number] 2018-08-31 2018-08-31 [facility] [id number] 09:00:00 09:00:00 [facility] 2018-08-25 2018-08-25 [facility] [id number] 08:30:00 08:30:00 t [facility] Results Test Description Test Time Test Comments Results Result [facility] e Comments - XR FLUOROSCOPY 2019-09-01 Patient Name: 0-60 MIN 12:41:00 [place] Unit No: [id number] EXAMS: CPT CODE: [id number] XR FLUOROSCOPY 0-60 MIN 15020 Fluoroscopy 1 view intraoperative 09/01/2019 12:40 PM CLINICAL HISTORY: Instrument localization COMPARISON: None available LOCATION: W1 IMPRESSION: Please correlate imaging report findings with the procedure note prepared by Dr. Brizuela, as an intra-procedure imaging consultation was not requested. Reported exposure: 0.6 mGy. at 1241 Reported and signed by: DESIREE HEWITT M.D. CC: Guanako Brizuela MD Technologist: Gualberto Damon Time: DAP (Gy m2): Air Kerma (mGy): Trscr Dt/Tm: 09/01/2019 (1241) by:[email or web address] Printed Date/Time: 09/01/2019 (1295) Name: HODAN [place] [facility] Phys: Guanako Tomas MD [address] : 1940 Age: 79 Sex: [place] [address] Loc: P.SRG Exam Date: 09/01/2019 Status: REG SDC PH: FAX: PAGE 1 Signed Report COMPREHENSIVE METABOLIC PANEL 2019-08-25 12:28:00 Test Item Value Reference Range Interpretation Comme nts SODIUM (test code = NA) 138 MMOL/L 136-143 N POTASSIUM (test code = K) 4.1 MMOL/L 3.5-5.1 N CHLORIDE (test code = CL) 97 MMOL/L 98-107 L CARBON DIOXIDE (test code = 24 mmol/L 24-31 N CO2) GLUCOSE (test code = GLU) 104 mg/dL 70-104 N BLOOD UREA NITROGEN (test 14.7 MG/DL 7.0-21.0 N code = BUN) GLOMERULAR FILTRATION RATE >=60 max estimate >60 The estimated glomerular (test code = GFR) filtration rate is computed usingpatient ra ce, age (>18), sex, and serum creatinine. If anyof the needed data sony ments are missing the Lab oratory cannot compute an estimation of the glomerul ar filtration rate. CREATININE (test code = 0.8 mg/dL 0.8-1.5 N CREAT) TOTAL PROTEIN (test code = 6.9 g/dL 6.3-8.3 N PROT) ALBUMIN (test code = ALB) 4.9 G/DL 3.5-5.0 N CALCIUM (test code = CA) 9.7 mg/dL 8.8-10.2 N BILIRUBIN TOTAL (test code = 0.4 mg/dL 0.2-1.0 N BILT) SGOT/AST (test code = AST) 25 IU/L 10-34 N SGPT/ALT (test code = ALT) 11 U/L 10-36 N ALKALINE PHOSPHATASE (test 116 U/L 32-104 H code = ALKP) - XR CHEST 1 [id number] 12:28:00Patient Name: H[place] Unit No: [id number] EXAMS: CPT CODE: [id number] XR CHEST 1 V 58550 EXAMINATION: - XR CHEST 1 V. LOCATION: W1. HISTORY: PRE OP. COMPARISON: Radiograph dated 08/21/2016. TECHNIQUE: Single AP view of the chest was obtained. FINDINGS: The heart is normal in size. The lungs are clear. No acute osseous abnormality is identified. IMPRESSION: No acute cardiopulmonary abnormality. at 1228 Reported and signed by: CONCEPCION SEO M.D. CC: Guanako Brizuela MD Technologist: Merrill Jugo Fluoro Time: DAP (Gy m2): Air Kerma (mGy): Trscr Dt/Tm: 08/25/2019 (1228) by:[email or web address] Printed Date/Time: 08/25/2019 (2073) Name: HODAN [place] [facility] Phys: Guanako Tomas MD [address] : 1940 Age: 79 Sex: [place] [address] Loc: P.SRG Exam Date: 08/25/2019 Status: PRE SDC PH: FAX: PAGE 1Signed ReportPROTHROMBIN [id number] 12:20:00 Test Item Value Reference Range Interpretation Comments PROTHROMBIN TIME 10.4 SECONDS 10.3-12.9 N PATIENT (test code = PTP) INTERNATIONAL 0.90 INR UNIT 0.9-1.11 N The INR is us eful only NORMAL RATIO (test for monit oring code = INR) anticoagulant therapy.It may be unreliable in t he initial phase o f antigoagulation and in unstable patien ts. Indication for Anticoagulation Recommend ed INR 1. Prevention o f venous thomboembolism 2.0-3.0in high -risk patients; treat ment of venousthrombosi s and pulmonary embol ism aftera course o f heparin; preven tion of systemicembolis m in a variety of cond itions, including atria l fibrillation an d prothetic tissu e heart valves, 2. Pros thetic mechanical hear t valves; 2.5-3.5recurren t systemic emboli sm. THROMBOPLASTIN TIME [id number] 12:20:00 Test Item Value Reference Range Interpretation Comments THROMBOPLASTIN TIME 35.1 SECONDS 26.0-35.9 N INTERPRE TATIVE PARTIAL (test code = DATA: erapeutic PTT) range: Unfractionated heparin:47 - 71 seconds Argatroban:1.5 to 3 times the basel ine PTT CBC W/AUTO [id number] 12:17:00 Test Item Value Reference Range Interpretation Comments WHITE BLOOD CELL (test code = 4.6 x10 3/uL 4.8-10.8 L WBC) RED BLOOD CELL (test code = 4.64 x10 6/uL 4.20-5.40 N RBC) HEMOGLOBIN (test code = HGB) 14.4 g/dL 14.5-20 L HEMATOCRIT (test code = HCT) 43.2 % 37.0-47.0 N MEAN CELL VOLUME (test code = 93.1 fL 81.0-99.0 N MCV) MEAN CELL HGB (test code = MCH) 31.0 pg 27-31 N MEAN CELL HGB CONCENTRATION 33.3 G/DL 33-36.5 N (test code = MCHC) RED CELL DISTRIBUTION WIDTH 11.9 % 12.9-16.9 L (test code = RDW) PLATELET COUNT (test code = 234 150-440 N PLT) MEAN PLATELET VOLUME (test code 9.5 fL 8.9-12.4 N = MPV) NEUTROPHIL % (test code = NT%) 71.8 % 42.2-75.2 N LYMPHOCYTE % (test code = LY%) 14.7 % 20.5-51.1 L MONOCYTE % (test code = MO%) 9.5 % 1.7-9.3 H EOSINOPHIL % (test code = EO%) 2.9 % 0.0-7.0 N BASOPHIL % (test code = BA%) 0.9 % 0-2.5 N NEUTROPHIL # (test code = NT#) 3.27 x10 3/uL 1.80-7.70 N LYMPHOCYTE # (test code = LY#) 0.67 x10 3/uL 1.00-4.80 L MONOCYTE # (test code = MO#) 0.43 x10 3/uL 0.00-0.80 N EOSINOPHIL # (test code = EO#) 0.13 x10 3/uL 0.00-0.45 N BASOPHIL # (test code = BA#) 0.04 x10 3/uL 0.0-0.20 N
[2020-04-12 08:20] LABS: Absolute Lymphocytes (CBC) 0.7 K/uL (0.7-4.9); Basophils % 0.2 % (0-1.3); Hematocrit 38.5 % (36.0-45.0); Lymphocytes % 10.7 % (15.3-44.8); MPV 7.8 fL (7.6-11.3)
[2020-04-12] MEDS: LIDOCAINE 1% 20 ML MDV ONE ×2 (08:27→09:24)
[2020-04-12] MEDS ORDERED: LIDOCAINE 2% MPF 5 ML VIAL ONE (08:27)
[2020-04-12] MEDS ORDERED: propofoL 200 MG/20 ML VIAL IV ONE (08:27)
[2020-04-12 08:43] LABS: Potassium 4.1 mmol/L (3.5-5.1)
[2020-04-12] MEDS ORDERED: Ringers Lactate 1,000 ML IV ONE (08:45)
[2020-04-12] MEDS ORDERED: CEFAZOLIN/SWI 1gm 1 GM/10 ML SYR ONE (08:45)
--- NOTE | 2020-04-12 09:16 | RAD REPORT ---
EXAM DESCRIPTION: RAD - Chest Pa And Lat (2 Views) - 04/12/2020 8:13 am CLINICAL HISTORY: PREOP, SAME DAY SURGERY, ROOM 2, pending temporal artery biopsy COMPARISON: September 2018 TECHNIQUE: Frontal and lateral views of the chest were obtained. FINDINGS: The lungs are clear of mass, consolidation or failure finding. Interstitial pattern is pro minent but not clearly different from the comparison. Heart size is normal and central vasculature is within normal limits. No pleural effusion or pneumothorax seen. No acute bone finding. midthorac ic degenerative change present without compression deformity. No aortic abnormality. IMPRESSION: Mild chronic interstitial lung disease similar to 2019. No acute findings.
[2020-04-12] MEDS ORDERED: HYDRALAZINE HCL 20 MG/ML VIAL ONE (09:58)
[2020-04-12] MEDS ORDERED: KETOROLAC 30 MG/ML INJ ONE (10:03)
[2020-04-12] MEDS ORDERED: Mastisol Adhesive Liq ONE (10:06)
--- NOTE | 2020-04-12 10:17 | OP ---
Date of Procedure: 04/12/2020 Surgeon: Richie De La Vega MD Preoperative Diagnosis: Left-sided headache, rule out temporal arteritis. Postoperative Diagnosis: Left-sided headache, rule out temporal arteritis. Procedure: Left temporal artery biopsy, doppler rated. Estimated Blood Loss: Minimal. Specimen: Left temporal artery. Findings: As above. Anesthesia: MAC. Complications: None. The patient tolerated the procedure in stable condition, taken to Recovery in good general condition. Procedure In Detail: The patient was brought to the OR and placed in supine position. MAC anesthesi a was begun. The patient was prepped and draped in usual sterile fashion. Doppler device was used t o identify and confirms branch of the left temporal artery anterior and superior to the left ear and then lidocaine 1% infiltrated locally. A 15-blade was used to make a 5 cm incision. Subcutaneous ti ssue divided. The artery identified, proximal and distal control obtained. The segment of the branc h of the temporal artery excised and sent to pathology. 4-0 silk used to tie off both ends. Wound i rrigated and bleeding controlled with cautery. 4-0 chromic was used to approximate the subcutaneous tissue and close the skin. Sterile dressing was applied. The patient was awakened and taken to Alex very in good general condition. Discharge Note: The parents will go to Day Surgery and home when stable. Disposition: Home. Condition: Stable. Discharge Instructions: Resume home medications and diet. Activity as tolerated. No heavy lifting. Remove outer dressing in 2 days. Keep the Steri-Strips on at all times. Follow up in my office in 2 weeks, call for appointment. Tylenol No.3 one tablet p.o. q.4 p.r.n. pain. /MODL Voice ID: [id number] Report ID: [id number]
[2020-04-12] MEDS ORDERED: CODEINE 30MG/APAP 300MG TAB ONE (10:31)
[2020-04-12 11:06] VITALS: BP 183/70; TEMP 97.6; O2SAT 99
--- NOTE | 2020-04-12 15:24 | EKG ---
Test Date: 2020-04-12 Test Time: 08:36:11 Database Analyst: RISHABH MEASUREMENT RESULTS: Intervals: Rate: 58 NE: 142 QRSD: 94 QT: 394 QTc: 386 [place]: P: 32 NE: 142 QRS: 5 T: 12 INTERPRETIVE STATEMENTS: Sinus bradycardia with sinus arrhythmia Possible Left atrial enlargement Left ventricular hypertrophy Nonspecific T wave abnormality Abnormal ECG No previous ECG available for comparison Electronically Signed On 04-12-20 15:23:58 CDT by Tian Abrams
== END 2020-04-12 10:50 | disposition home or self-care (01) ==
LOC: OR 07:34
PROVIDERS: ATTEND Surgery
PROC: 03BT0ZX Excision of Left Temporal Artery, Open Approach, Diagnostic (ICD-10-PCS; principal; 2020-04-12 08:30)
DX: R51 Headache (principal); Z11.59 Encounter for screening for other viral diseases
CPT/HCPCS: 93005; 85025; 80048; 36415; 88305; 71046; 37609; U0002; J0360; J2704; J0690; J7120

== ENCOUNTER 2023-08-04 05:40 | Emergency (ER) | payer OTHER ==
--- OUTSIDE RECORDS SUMMARY | 2023-08-04 05:48 | XMS REPORT | Continuity of Care Document ---
:1940 Author Organization [facility] t Address [address] [facility] [address] [place] [address] Care Team Providers Name Role Phone Unknown, Physician Primary Care Physician Unavailable Brian Merrill Attending Clinician Unavailable DR BRIAN BERG Attending Clinician Unavailable Faculty, [facility] Attending Clinician Unavailporfirio Regalado MD, Raghavendra Attending Clinician ASHUTOSH BRAUN Attending Clinician Unavailable Brianne Su MD Attending Clinician RADIOLOGY Attending Clinician Unavailable Radiology Attending Clinician Unavailable Husam Lyn Attending Clinician Husam Lyn MD Attending Clinician Todd Sharp Attending Clinician Unavailable Mellisa Riley Attending Clinician Unavailable Doctor Unassigned, Penryn Attending Clinician Unavailable ALESSANDRO SOTO Attending Clinician Unavailable Ronaldo Guevara DO Attending Clinician Malik Paz MD Attending Clinician MALIK PAZ Attending Clinician Unavailable MALIK PAZ Attending Clinician Unavailable LORRAINE MERCADO Attending Clinician Unavailable Brian Merrill Admitting Clinician Unavailable DR BRIAN BERG Admitting Clinician Unavailable BRIAN MERRILL Admitting Clinician Unavailable Brian Merrill Admitting Clinician Unavailable Physician, No Primary or Family Admitting Clinician UnavailBRIANNE Reyna Admitting Clinician Unavailable MALIK PAZ Admitting Clinician Unavailable Payers Payer Name Policy Type Policy Number Effective Date Expiration Date Ava herrera [employer] MEDICARE PPO [id number] 2021 00:00:00 0516 [id number] 2012 00:00:00 Problems Condition Condition Condition Status Onset Resolution Last Treating Co mments Source Name Details Category Date Date Treatment Clinician Date TINNITUS, TINNITUS, Diagnosis Active 2022-03-19 [facility] LEFT EAR LEFT EAR 6-23 09:08:00 l Active 00:00: Lance 03/12/2022 00 [facility] Tinnitus Tinnitus Disease Active [facility] of left of left 4-29 Health ear ear 00:00: 00 Pain of Pain of Disease Active Methodi left hip left hip 5-07 st joint joint 00:00: Hospita 00 l Status Status Disease Active Methodi post post 5-07 st revision revision 00:00: Hospit a of total of total 00 l knee knee replacemen replacemen t, right t, right Status Status Disease Active [facility]i post total post total 2-04 st knee knee 00:00: Hospita replacemen replacemen 00 l t using t using cement, cement, right right Painful Painful Disease Active Methodi orthopaedi orthopaedi 1-21 st c hardware c hardware 00:00: Ho spita 00 l Primary Primary Disease Active 2017-09 Overview: Meth divina osteoarthr osteoarthr 2-[address] itis of itis of 00:00: g of this Hospi ta right knee right knee 00 note l might be different from the original. Added automatic ally from request for surgery [id number] Pain due Pain due Disease Active 2017-09 Overview: Me thodi to hip to hip 11-[address] joint joint 00:00: g of this Hospita prosthesis prosthesis 00 note l might be different from the original. Added automatic ally from request for surgery [id number] Osteoarthr Osteoarthr Disease Active M ethodi itis of itis of 03-15 st left knee left knee 00:00: Hosp lee 00 l Status Status Problem Active Common post right post right Sp dinesh knee knee - [facility] replacemen replacemen [facility] Primary Primary Problem Active Common osteoarthr osteoarthr Sp dinesh itis of itis of - [facility] right knee right knee [facility] Tinnitus Tinnitus Problem Active 2022-03-20 Mem[facility] of of 22:47:32 l vascular vascular Santiago n origin origin (disorder) (disorder) Active Problem 03/20/2022 [facility] History of Past Illness Condition Condition Condition Status Onset Resolution Last Treating Co mments Source Name Details Category Date Date Treatment Clinician Date Pulsatile Pulsatile Problem 2022-03-20 2022-03-20 [facility] tinnitus, tinnitus, 03-18 22:47:32 22:47:32 l unspecifie unspecifie 16:42: He nadine d ear d ear 00 03/18/2022 03/20/2022 [facility] Allergies, Adverse Reactions, Alerts Allergy Allergy Status Severity Reaction(s) Onset Inactive Treating Comm ents Source Name Type Date Date Clinician Hydrocod Allergy Active Itching [facility] to 01-16 Health substanc 00:00: e 00 Penicill DA Active SV 2018-09 [facility] ins 10-26 [place] 00:[facility]: [facility] [address] latex DA Active SV 2018-09 [facility] 10-26 [place] 00:00: [facility] [address] TAPE DA Active SV 2018-09 [facility] 10-26 [place] 00:00: [facility] [address] Adhesive Drug Active 2018-09 [facility] Tape Allergy 10-26 Health 00:00: 00 penicill DA Active U RASH [facility] in G 10-08 Clear 00:00: [place] 00 [facility] latex DA Active U [facility]ASH [facility] 10-08 Clear 00:00: [place] 00 [facility] penicill DA Active U [facility] in G 10-08 Clear 00:00: [facility]o [facility] latex DA Active U [facility] 10-08 Clear 00:00: Arevalo [facility] Latex Propensi Active Methodi ty to 03-11 adverse 00:00: Hospita reaction 00 l s to drug Penicill Propensi Active Method i ins ty to 03-11 adverse 00:00: Hospita reaction 00 l s to drug Latex Allergy Active Other UT to 06 reaction( Health substan 00:00: s): Other e 00 - See comments, RASHBlist ers Penicill Allergy Active Rash Other [facility] ins to 09-25 reaction( Health substan 00:00: s): Info e 00 Not Available , RASH LATEX DRUG Active Other-Cmnt Un[facility] s INGREDI -06 ity [facility] 00:[facility]: [place] [facility] PENICILL Drug Active Rash Univers INS Class 1-06 ity of 00:00: [place] [facility] Latex Propensi Active Other - See Blisters U nivers ty to comments 09-25 ity of adverse 00:00: [place] reaction 00 [facility] s [facility] Penicill Propensi Active Rash Univer s ins ty to 1-06 ity of adverse 00:00: [place] reaction 00 [facility] Penicill Propensi Active Rash Univer s ins ty to 1-06 ity of adverse 00:00: [place] reaction 00 [facility] Penicill Propensi Active Rash Univer s ins ty to 1-06 ity of adverse 00:00: [place] reaction 00 [facility] s [facility] penicill Adverse Active Info Not Commo n in Reaction Available Spiri t - [facility] penicill penicill Active Memori a ins ins l Lance Latex Latex Active Memoria l [place] Adhesive Adhesive Active Memori a Tape Tape l Lance Family History Family Member Diagnosis Comments Start Date Stop Date Source Maternal aunt Cancer [facility] Social History Social Habit Start Date Stop Date Quantity Comments Source Sexual orientation 2018-08-30 Heterosexual Meth odist 09:19:25 (finding) Hospital Exposure to Not sure University SARS-CoV-2 (event) [place] [facility] o [facility] Comment [place] [facility] o f Alcohol Std Drinks [place] [facility] History [facility] o f Alcohol Binge [place] [facility] Tobacco use and 2022-05-04 2022-05-04 Smokeless tobacco Me thodist exposure 00:00:00 00:00:00 non-user Hospital History of Social 2022-05-04 2022-05-[address] function 00:00:00 00:00:00 Hospital Tobacco Comment 2022-05-04 2022-05-04 N/A Baptism 00:00:00 00:00:00 Hospital Alcohol intake 2022-05-04 2022-05-04 Current non-drinker M ethodist 00:00:00 00:00:00 of alcohol Hospital (finding) Social History 2022-03-18 2022-03-18 [facility] orenann 12:18:55 12:18:55 Cigarette 2022-01-16 2022-01-16 [place] Health pack-years 00:00:00 00:00:[address] [facility] 2019-02-28 2019-02-28 1 University o f Alcohol Frequency 00:00:00 00:00:00 [facility] edical Branch Sex Assigned At [birth year] Baptism 00:00:00 00:00:00 Hospital Smoking Status Start Date Stop Date Source Never smoked tobacco [facility] Medications Ordered Filled Start Stop Current Ordering Indication Dosage Frequency Signature Comments Components Source Medication Medication Date Date Medication? Clinician (SIG) Name Name COQ10, Yes Take by Methodi LIPOSOMAL 8-[address] UBIQUINOL, 08:44: Hospita ORAL 16 l glucosamine Yes Take by Met hodi /msm/chondr 8-[address] t/C/hyal 08:44: Hospita (GLUCOSAMIN 16 l E-CHONDROIT IN-MSM ORAL) MULTIVITAMI Yes Take by Met hodi N ORAL 8-[address] 08:44: Hospita 16 l fexofenadin Yes 180mg Take 180 M ethodi e (JUAN) 8-[address] 180 MG 08:44: mouth. Hospita tablet 16 l fish,bora,f Yes Take by Met hodi lax 8-[address] oils-om3,6, 08:44: Hospit a 9no1 1,200 16 l mg capsule montelukast 2021-0 Yes montelukas Methodi (SINGULAIR) 8-[address] 10 mg 08:44: tablet Hospita tablet 16 l cyanocobala 2021-0 Yes 1000ug QD Take 1,000 Methodi min 8-[address] (VITAMIN 08:44: mouth Hospita B-12) 1000 16 daily. l MCG tablet biotin 2021-0 Yes 1{tbl} QD Chew 1 Methodi 1,000 mcg 8-[address] tablet,chew 08:44: daily. Hosp lee able 16 l donepeziL 0 Yes donepezil Met hodi (ARICEPT) 8-[address] 10 MG 08:44: tablet Hospita tablet 16 TAKE 1 l TABLET BY MOUTH EVERY DAY IN THE MORNING COQ10, 2021-0 Yes Take by Methodi LIPOSOMAL 8-[address] UBIQUINOL, 08:44: Hospita ORAL 16 l glucosamine 0 Yes Take by Met hodi /msm/chondr 8-[address] t/C/hyal 08:44: Hospita (GLUCOSAMIN 16 l E-CHONDROIT IN-MSM ORAL) MULTIVITAMI 0 Yes Take by Met hodi N ORAL 8-[address] 08:44: Hospita 16 l fexofenadin 0 Yes 180mg Take 180 M ethodi e (JUAN) 8-[address] 180 MG 08:44: mouth. Hospita tablet 16 l fish,bora,f Yes Take by Met courtney lax 8-[address] oils-om3,6, 08:44: Hospit a 9no1 1,200 16 l mg capsule montelukast 2021-0 Yes montelukas Methodi (SINGULAIR) 8-[address] 10 mg 08:44: tablet Hospita tablet 16 l cyanocobala 2021-0 Yes 1000ug QD Take 1,000 Methodi min 8-[address] (VITAMIN 08:44: mouth Hospita B-12) 1000 16 daily. l MCG tablet biotin 2021-0 Yes 1{tbl} QD Chew 1 Methodi 1,000 mcg 8-[address] tablet,chew 08:44: daily. Hosp lee able 16 l donepeziL 0 Yes donepezil Met hodi (ARICEPT) 8-[address] 10 MG 08:44: tablet Hospita tablet 16 TAKE 1 l TABLET BY MOUTH EVERY DAY IN THE MORNING COQ10, 2021-0 Yes Take by Methodi LIPOSOMAL 8-[address] UBIQUINOL, 08:44: Hospita ORAL 16 l glucosamine 0 Yes Take by Met hodi /msm/chondr 8-[address] t/C/hyal 08:44: Hospita (GLUCOSAMIN 16 l E-CHONDROIT IN-MSM ORAL) MULTIVITAMI Yes Take by Met hodi N ORAL 8-[address] 08:44: Hospita 16 l fexofenadin Yes 180mg Take 180 M ethodi e (JUAN) 8-[address] 180 MG 08:44: mouth. Hospita tablet 16 l fish,bora,f Yes Take by Met hodi lax 8-[address] oils-om3,6, 08:44: Hospit a 9no1 1,200 16 l mg capsule montelukast Yes montelukas Methodi (SINGULAIR) 8-[address] 10 mg 08:44: tablet Hospita tablet 16 l cyanocobala 0 Yes 1000ug QD Take 1,000 Methodi min 8-[address] (VITAMIN 08:44: mouth Hospita B-12) 1000 16 daily. l MCG tablet biotin Yes 1{tbl} QD Chew 1 Methodi 1,000 mcg 8-[address] tablet,chew 08:44: daily. Hosp lee able 16 l donepeziL 0 Yes donepezil Met hodi (ARICEPT) 8-[address] 10 MG 08:44: tablet Hospita tablet 16 TAKE 1 l TABLET BY MOUTH EVERY DAY IN THE MORNING COQ10, 2021-0 Yes Take by Methodi LIPOSOMAL 8-[address] UBIQUINOL, 08:44: Hospita ORAL 16 l glucosamine 0 Yes Take by Met hodi /msm/chondr 8-[address] t/C/hyal 08:44: Hospita (GLUCOSAMIN 16 l E-CHONDROIT IN-MSM ORAL) MULTIVITAMI Yes Take by Met hodi N ORAL 8-[address] 08:44: Hospita 16 l fexofenadin Yes 180mg Take 180 M ethodi e (JUAN) 8-[address] 180 MG 08:44: mouth. Hospita tablet 16 l fish,bora,f Yes Take by Met hodi lax 8-[address] oils-om3,6, 08:44: Hospit a 9no1 1,200 16 l mg capsule montelukast Yes montelukas Method[facility] (SINGULAIR) 8-[address] 10 mg 08:44: tablet Hospita tablet 16 l cyanocobala Yes 1000ug QD Take 1,000 Methodi min 8-[address] (VITAMIN 08:44: mouth Hospita B-12) 1000 16 daily. l MCG tablet biotin Yes 1{tbl} QD Chew 1 Methodi 1,000 mcg 8-[address] tablet,chew 08:44: daily. Hosp lee able 16 l donepeziL Yes donepezil Met hodi (ARICEPT) 8-[address] 10 MG 08:44: tablet Hospita tablet 16 TAKE 1 l TABLET BY MOUTH EVERY DAY IN THE MORNING COQ10, Yes Take by Methodi LIPOSOMAL 8-[address] UBIQUINOL, 08:44: Hospita ORAL 16 l glucosamine Yes Take by Met hodi /msm/chondr 8-[address] t/C/hyal 08:44: Hospita (GLUCOSAMIN 16 l E-CHONDROIT IN-MSM ORAL) MULTIVITAMI Yes Take by Met hodi N ORAL 8-[address] 08:44: Hospita 16 l fexofenadin 0 Yes 180mg Take 180 M ethodi e (JUAN) 8-[address] 180 MG 08:44: mouth. Hospita tablet 16 l fish,bora,f Yes Take by Met hodi lax 8-[address] oils-om3,6, 08:44: Hospit a 9no1 1,200 16 l mg capsule montelukast 0 Yes montelukas Methodi (SINGULAIR) 8-[address] 10 mg 08:44: tablet Hospita tablet 16 l cyanocobala Yes 1000ug QD Take 1,000 Methodi min 8-[address] (VITAMIN 08:44: mouth Hospita B-12) 1000 16 daily. l MCG tablet biotin Yes 1{tbl} QD Chew 1 Methodi 1,000 mcg 8-[address] tablet,chew 08:44: daily. Hosp lee able 16 l donepeziL Yes donepezil Met hodi (ARICEPT) 8-[address] 10 MG 08:44: tablet Hospita tablet 16 TAKE 1 l TABLET BY MOUTH EVERY DAY IN THE MORNING alendronate 3- No 70mg Q1W TAKE 1 Met hodi (FOSAMAX) 04-21 TABLET (70 st 70 MG 00:00: 04:59 MG TOTAL) Hospit a tablet 00 :00 BY MOUTH l EVERY 7 DAYS. TAKE IN THE MORNING WITH A FULL GLASS OF WATER ON AN EMPTY STOMACH, DO NOT TAKE ANYTHING ELSE BY MOUTH OR LIE DOWN FOR THE NEXT 30 MIN. alendronate 2022- No 70mg Q1W TAKE 1 Met hodi (FOSAMAX) 04-21 TABLET (70 st 70 MG 00:00: 04:59 MG TOTAL) Hospit a tablet 00 :00 BY MOUTH l EVERY 7 DAYS. TAKE IN THE MORNING WITH A FULL GLASS OF WATER ON AN EMPTY STOMACH, DO NOT TAKE ANYTHING ELSE BY MOUTH OR LIE DOWN FOR THE NEXT 30 MIN. alendronate 0 3- No 70mg Q1W TAKE 1 Met hodi (FOSAMAX) 04-21 TABLET (70 st 70 MG 00:00: 04:59 MG TOTAL) Hospit a tablet 00 :00 BY MOUTH l EVERY 7 DAYS. TAKE IN THE MORNING WITH A FULL GLASS OF WATER ON AN EMPTY STOMACH, DO NOT TAKE ANYTHING ELSE BY MOUTH OR LIE DOWN FOR THE NEXT 30 MIN. alendronate 0 3- No 70mg Q1W TAKE 1 Met hodi (FOSAMAX) 04-21 TABLET (70 st 70 MG 00:00: 04:59 MG TOTAL) Hospit a tablet 00 :00 BY MOUTH l EVERY 7 DAYS. TAKE IN THE MORNING WITH A FULL GLASS OF WATER ON AN EMPTY STOMACH, DO NOT TAKE ANYTHING ELSE BY MOUTH OR LIE DOWN FOR THE NEXT 30 MIN. alendronate 2022- No 70mg Q1W TAKE 1 Met hodi (FOSAMAX) 04-21 TABLET (70 st 70 MG 00:00: 04:59 MG TOTAL) Hospit a tablet 00 :00 BY MOUTH l EVERY 7 DAYS. TAKE IN THE MORNING WITH A FULL GLASS OF WATER ON AN EMPTY STOMACH, DO NOT TAKE ANYTHING ELSE BY MOUTH OR LIE DOWN FOR THE NEXT 30 MIN. predniSONE 2021- No TAKE 4 Meth divina (DELTASONE) 04-20 TABLETS BY s t 1 mg tablet 00:00: 04:59 MOUTH Hosp lee 00 :00 EVERY DAY l FOR 45 DAYS THEN TAKE 3 TABLETS BY MOUTH EVERY DAY FOR 45 DAYS predniSONE 2021-2021- No TAKE 4 Meth divina (DELTASONE) 04-20 TABLETS BY s t 1 mg tablet 00:00: 04:59 MOUTH Hosp lee 00 :00 EVERY DAY l FOR 45 DAYS THEN TAKE 3 TABLETS BY MOUTH EVERY DAY FOR 45 DAYS predniSONE 2021-0 2021- No TAKE 4 Meth divina (DELTASONE) 04-20 TABLETS BY s t 1 mg tablet 00:00: 04:59 MOUTH Hosp lee 00 :00 EVERY DAY l FOR 45 DAYS THEN TAKE 3 TABLETS BY MOUTH EVERY DAY FOR 45 DAYS predniSONE 2021-2021- No TAKE 4 Meth divina (DELTASONE) 04-20 TABLETS BY s t 1 mg tablet 00:00: 04:59 MOUTH Hosp lee 00 :00 EVERY DAY l FOR 45 DAYS THEN TAKE 3 TABLETS BY MOUTH EVERY DAY FOR 45 DAYS lidocaine No 10 mL, Memori a 6-29 Route: l 14:19: SUB-Q, 00 ONCE, Dosing Weight 75, kg, Start date: 03/18/22 9:19:00 CDT, Stop date: 03/18/22 9:19:00 CDT fentaNYL 2021- No 50 Memoria 6-29 microgram, l 14:19: Route: IV, Lance 00 ONCE, Dosing Weight 75, kg, Start date: 03/18/22 9:19:00 CDT, Stop date: 03/18/22 9:19:00 CDT midazolam No 1 mg, Memoria 03-18 Route: IV, l 14:19: ONCE, Dosing Weight 75, kg, Start date: 03/18/22 9:19:00 CDT, Stop date: 03/18/22 9:19:00 CDT predniSONE Yes 4 mg = 4 Mem oria 1 mg oral 03-18 tab, PO, l tablet 12:26: Daily, Give with food., # 120 tab, 0 Refill(s) normal No 1,000 mL, Memori a saline 0.9% 03-18 Rate: 125 l IV 1,000 mL 12:21: ml/hr, Infuse over: 8 hr, Route: IV, Dosing Weight 75 kg, Total Volume: 1,000, Start date: 03/18/22 7:21:00 CDT, Duration: 30 day, Stop date: 04/17/22 7:20:00 CDT, BSA: 1.85 m2, 0 predniSONE 2021-2021- No TAKE 4 Meth divina (DELTASONE) 02-17 TABLETS (4 s t 1 mg tablet 00:00: 00:00 MG TOTAL) Hospita 00 :00 BY MOUTH l DAILY FOR 45 DAYS, THEN 3 TABLETS (3 MG TOTAL) DAILY FOR 45 DAYS. predniSONE 2021- No TAKE 4 Meth divina (DELTASONE) 02-17 TABLETS (4 s t 1 mg tablet 00:00: 00:00 MG TOTAL) Hospita 00 :00 BY MOUTH l DAILY FOR 45 DAYS, THEN 3 TABLETS (3 MG TOTAL) DAILY FOR 45 DAYS. predniSONE 2021- No TAKE 4 Meth divina (DELTASONE) 02-17 TABLETS (4 s t 1 mg tablet 00:00: 00:00 MG TOTAL) Hospita 00 :00 BY MOUTH l DAILY FOR 45 DAYS, THEN 3 TABLETS (3 MG TOTAL) DAILY FOR 45 DAYS. predniSONE 2021-2021- No TAKE 4 Meth divina (DELTASONE) 02-17- TABLETS (4 s t 1 mg tablet 00:00: 00:00 MG TOTAL) Hospita 00 :00 BY MOUTH l DAILY FOR 45 DAYS, THEN 3 TABLETS (3 MG TOTAL) DAILY FOR 45 DAYS. midazolam 0 No 2 mg, Memoria 5-10 Route: IV, l 12:43: ONCE, Lance 00 Dosing Weight 75, kg, Start date: 01/27/22 7:43:00 CDT, Stop date: 01/27/22 7:43:00 CDT fentaNYL 2021-0 No 100 Memoria 5-10 microgram, l 12:43: Route: IV, Lance 00 ONCE, Dosing Weight 75, kg, Start date: 01/27/22 7:43:00 CDT, Stop date: 01/27/22 7:43:00 CDT Omnipaque 0 No 150 mL, Memor ia 300 5-10 Route: l 12:43: INTRAARTER [place] 00 IAL, Dosing Weight 75, kg, ONCE, Start date: 01/27/22 7:43:00 CDT, Stop date: 01/27/22 7:43:00 CDT amLODIPine 0 Yes 5 mg = 1 Mem oria 5 mg oral 5-10 tab, PO, l tablet 12:25: Daily, 0 Lance 00 Refill(s) hydrochloro Yes 1 cap, PO, Memoria thiazide-tr 5-10 Daily, 0 l iamterene 12:24: Refill(s) Her alvarez 25 mg-37.5 00 mg oral capsule valsartan Yes 320 mg = 1 Me moria 320 mg oral 5-10 tab, PO, l tablet 12:24: Daily, 0 Lance 00 Refill(s) simvastatin Yes 10 mg = 1 M emoria 10 mg oral 5-10 tab, PO, l tablet 12:23: Bedtime, 0 Rossy nn 00 Refill(s) Folcaps 0 Yes 1 cap, PO, Erick duc [place] 3 5-10 Daily, 0 l oral 12:22: Refill(s) [place] capsule 00 potassium Yes 8 mEq = 1 Mem oria chloride 8 5-10 cap, PO, l mEq oral 12:22: Daily, 0 Rossy nn capsule, 00 Refill(s) extended release donepezil Yes 10 mg = 1 Mem oria 10 mg oral 5-10 tab, PO, l tablet 12:21: Daily, 0 Lance 00 Refill(s) multivitami Yes 1, Daily, M vicenteria n 5-10 0 l 12:21: Refill(s) [place] 00 normal No 1,000 mL, Memori a saline 0.9% 5-10 Rate: 125 l IV 1000 mL 12:20: ml/hr, Rossy nn 00 Infuse over: 8 hr, Route: IV, Dosing Weight 75 kg, Total Volume: 1,000, Start date: 01/27/22 7:20:00 CDT, Duration: 30 day, Stop date: 02/26/22 7:19:00 CDT, BSA: 1.85 m2 triamterene Yes triamteren UT -hydrochlor 4-29 e 37.5 Health othiazide 11:37: mg-hydroch (Maxzide-25 13 lorothiazi ) 37.5-25 de 25 mg MG tablet tablet TAKE 1 TABLET BY MOUTH EVERY DAY IN THE MORNING simvastatin Yes simvastati UT (Zocor) 10 4-29 n 10 mg Health MG tablet 11:37: tablet 13 TAKE 1 TABLET BY MOUTH EVERY MORNING potassium Yes potassium UT chloride ER 4-29 chloride Heal th (Micro-K) 8 11:37: ER 8 mEq MEQ ER 13 capsule,ex capsule tended release TAKE 1 CAPSULE BY MOUTH EVERY MORNING [place] 3 Yes Take one UT 1200 MG 4-29 capsule Health capsule 11:37: daily 13 Multiple Yes TAKE 1 UT Vitamin 4-29 TABLET Health (Multi 11:37: DAILY. Vitamin 13 Daily) tablet donepezil Yes donepezil UT (Aricept) 4-29 10 mg Health 10 MG 11:37: tablet tablet 13 TAKE 1 TABLET BY MOUTH EVERY DAY IN THE MORNING triamterene Yes triamteren UT -hydrochlor 4-29 e 37.5 Health othiazide 11:37: mg-hydroch (Maxzide-25 13 lorothiazi ) 37.5-25 de 25 mg MG tablet tablet TAKE 1 TABLET BY MOUTH EVERY DAY IN THE MORNING simvastatin Yes simvastati UT (Zocor) 10 4-29 n 10 mg Health MG tablet 11:37: tablet 13 TAKE 1 TABLET BY MOUTH EVERY MORNING potassium Yes potassium UT chloride ER 4-29 chloride Heal th (Micro-K) 8 11:37: ER 8 mEq MEQ ER 13 capsule,ex capsule tended release TAKE 1 CAPSULE BY MOUTH EVERY MORNING [place] 3 Yes Take one UT 1200 MG 4-29 capsule Health capsule 11:37: daily 13 Multiple Yes TAKE 1 UT Vitamin 4-29 TABLET Health (Multi 11:37: DAILY. Vitamin 13 Daily) tablet donepezil Yes donepezil UT (Aricept) 4-29 10 mg Health 10 MG 11:37: tablet tablet 13 TAKE 1 TABLET BY MOUTH EVERY DAY IN THE MORNING predniSONE 2021- No Take 4 Meth divina (DELTASONE) 4-18 05-31 tablets (4 s t 1 mg tablet 00:00: 00:00 mg total) Hospita 00 :00 by mouth l daily for 45 days, THEN 3 tablets (3 mg total) daily for 45 days. predniSONE 2021- No Take 4 Meth divina (DELTASONE) 4-18 05-31 tablets (4 s t 1 mg tablet 00:00: 00:00 mg total) Hospita 00 :00 by mouth l daily for 45 days, THEN 3 tablets (3 mg total) daily for 45 days. predniSONE 2021- No Take 4 Meth divina (DELTASONE) 4-18 05-31 tablets (4 s t 1 mg tablet 00:00: 00:00 mg total) Hospita 00 :00 by mouth l daily for 45 days, THEN 3 tablets (3 mg total) daily for 45 days. predniSONE 2021- No Take 4 Meth divina (DELTASONE) 4-18 05-31 tablets (4 s t 1 mg tablet 00:00: 00:00 mg total) Hospita 00 :00 by mouth l daily for 45 days, THEN 3 tablets (3 mg total) daily for 45 days. BABY 2021- No Take by Methodi ASPIRIN 4-13 -[address] ORAL 13:48: 00:00 Hospita 25 :00 l BABY 2021-0 2021- No Take by Methodi ASPIRIN 4-13 -[address] ORAL 13:48: 00:00 Hospita 25 :00 l BABY 2022021- No Take by Methodi ASPIRIN 12-31- mouth. st ORAL 13:48: 00:00 Hospita 25 :00 l BABY 2021-0 2021- No Take by Methodi ASPIRIN 12-31- mouth. st ORAL 13:48: 00:00 Hospita 25 :00 l predniSONE 2021-2021- No TAKE 1 Meth divina (DELTASONE) 12-[address] 5 mg tablet 00:00: 00:00 MOUTH [facility]osp lee 00 :00 EVERY DAY l predniSONE 2021-0 2021- No TAKE 1 Meth divina (DELTASONE) 12-[address] 5 mg tablet 00:00: 00:00 MOUTH Hosp lee 00 :00 EVERY DAY l predniSONE 2021-2021- No TAKE 1 Meth divina (DELTASONE) 12-[address] 5 mg tablet 00:00: 00:00 MOUTH Hosp lee 00 :00 EVERY DAY l predniSONE 2021-2021- No TAKE 1 Meth divina (DELTASONE) 12-[address] 5 mg tablet 00:00: 00:00 MOUTH Hosp lee 00 :00 EVERY DAY l predniSONE 2020-09- No 5mg QD Take 1 Meth divina (DELTASONE) 10-21 tablet (5 st 5 mg tablet 00:00: 00:00 mg total) Hospita 00 :00 by mouth l daily. predniSONE 2020-2021- No 5mg QD Take 1 Meth divina (DELTASONE) 10-21 tablet (5 st 5 mg tablet 00:00: 00:00 mg total) Hospita 00 :00 by mouth l daily. predniSONE 2020-09- No 5mg QD Take 1 Meth divina (DELTASONE) 10-21-12 tablet (5 st 5 mg tablet 00:00: 00:00 mg total) Hospita 00 :00 by mouth l daily. predniSONE 2020-09- No 5mg QD Take 1 Meth divina (DELTASONE) 2-12 tablet (5 st 5 mg tablet 00:00: 00:00 mg total) Hospita 00 :00 by mouth l daily. gabapentin 2020-09- No 300mg QD Take 3 Met hodi (NEURONTIN) 09-[address] 100 mg 00:00: 00:00 (300 mg Hospita capsule 00 :00 total) by l mouth nightly. gabapentin 2020-09- No 300mg QD Take 3 Met hodi (NEURONTIN) 09-[address] 100 mg 00:00: 00:00 (300 mg Hospita capsule 00 :00 total) by l mouth nightly. gabapentin 2020-09- No 300mg QD Take 3 Met hodi (NEURONTIN) 09-[address] 100 mg 00:00: 00:00 (300 mg Hospita capsule 00 :00 total) by l mouth nightly. gabapentin 2020-09- No 300mg QD Take 3 Met hodi (NEURONTIN) 09-[address] 100 mg 00:00: 00:00 (300 mg Hospita capsule 00 :00 total) by l mouth nightly. alendronate 2021- No 70mg Q1W Take 1 Met hodi (Fosamax) 02-25 tablet (70 st 70 MG 00:00: 00:00 mg total) Hospit a tablet 00 :00 by mouth l every 7 days. Take in the morning with a full glass of water on an empty stomach, do NOT take anything else by mouth or lie down for the next 30 min. alendronate 2021- No 70mg Q1W Take 1 Met [facility]odi (Fosamax) 02-25 tablet (70 st 70 MG 00:00: 00:00 mg total) Hospit a tablet 00 :00 by mouth l every 7 days. Take in the morning with a full glass of water on an empty stomach, do NOT take anything else by mouth or lie down for the next 30 min. alendronate 2021- No 70mg Q1W Take 1 Met hodi (Fosamax) 02-25 tablet (70 st 70 MG 00:00: 00:00 mg total) Hospit a tablet 00 :00 by mouth l every 7 days. Take in the morning with a full glass of water on an empty stomach, do NOT take anything else by mouth or lie down for the next 30 min. alendronate 2021- No 70mg Q1W Take 1 Met hodi (Fosamax) 02-25 tablet (70 st 70 MG 00:00: 00:00 mg total) Hospit a tablet 00 :00 by mouth l every 7 days. Take in the morning with a full glass of water on an empty stomach, do NOT take anything else by mouth or lie down for the next 30 min. amLODIPine 2021-0 Yes 5mg Q.5D Take 5 mg [facility] (NORVASC) 5 3-[address] mg tablet 00:00: [facility]two[facility] 00 times a l day. amLODIPine 2021-0 Yes 5mg Q.5D Take 5 mg [facility] (NORVASC) 5 3-[address] mg tablet 00:00: (two) [facility] 00 times a l day. amLODIPine 2021-0 Yes 5mg Q.5D Take 5 mg [facility] (NORVASC) 5 3-[address] mg tablet 00:00: (two) [facility] 00 times a l day. amLODIPine 1-0 Yes 5mg Q.5D Take 5 mg [facility] (NORVASC) 5 3-[address] mg tablet 00:00: (two) [facility]osp[facility] 00 times a l day. amLODIPine 2021-0 Yes 5mg Q.5D Take 5 mg [facility] (NORVASC) 5 3-[address] mg tablet 00:00: (two) [facility]ospita 00 times a l day. gadoteridol 2020-2020- No .2mL/kg 0.2 mL/kg, [facility] (PROHANCE-1 11-19 03-02 Intravenou i ty of 5 mL) 20:30: 20:19 s, ONCE, 1 [place] injection 00 :00 dose, Tue Medic al 0.2 mL/kg 11/19/20 at [facility] h 1430, Routine valsartan 2020-0 Yes 320mg QD Take 320 [facility] (DIOVAN) 2-[address] 320 MG 00:00: mouth [facility] tablet 00 every l morning. valsartan 202-0 Yes 320mg QD Take 320 [facility] (DIOVAN) 2-[address] 320 MG 00:00: mouth [facility] tablet 00 every l morning. valsartan 2021-0 Yes 320mg QD Take 320 [facility] (DIOVAN) 2-[address] 320 MG 00:00: mouth [facility] tablet 00 every l morning. valsartan Yes 320mg QD Take 320 [facility] (DIOVAN) 2-[address] 320 MG 00:00: mouth [facility] tablet 00 every l morning. valsartan Yes valsartan [place] (Diovan) 2-19 320 mg Health 320 MG 00:00: tablet tablet 00 TAKE 1 TABLET BY MOUTH EVERY DAY IN THE MORNING valsartan Yes valsartan [place] (Diovan) 2-19 320 mg Health 320 MG 00:00: tablet tablet 00 TAKE 1 TABLET BY MOUTH EVERY DAY IN THE MORNING valsartan Yes 320mg QD Take 320 [facility] (DIOVAN) 2-[address] 320 MG 00:00: mouth [facility] tablet 00 every l morning. methocarbam Yes [id number] 1000mg Take 2 [facility] ol 8-09 tablets by ity of (ROBAXIN) 00:00: mouth [place] 500 mg 00 daily. Medical tablet Branch methocarbam Yes [id number] 1000mg Take 2 [facility] ol 8-09 tablets by ity of (ROBAXIN) 00:00: mouth [place] 500 mg 00 daily. Medical tablet Branch methocarbam Yes [id number] 1000mg Take 2 [facility] ol 8-09 tablets by ity of (ROBAXIN) 00:00: mouth [place] 500 mg 00 daily. Medical tablet Branch methocarbam Yes [id number] 1000mg Take 2 [facility] ol 8-09 tablets by ity of (ROBAXIN) 00:00: mouth [place] 500 mg 00 daily. Medical tablet Branch methocarbam Yes [id number] 1000mg Take 2 [facility] ol 8-09 tablets by ity of (ROBAXIN) 00:00: mouth [place] 500 mg 00 daily. Medical tablet Branch methocarbam Yes [id number] 1000mg Take 2 [facility] ol 8-09 tablets by ity of (ROBAXIN) 00:00: mouth [place] 500 mg 00 daily. Medical tablet Branch methocarbam Yes [id number] 1000mg Take 2 [facility] ol 8-09 tablets by ity of (ROBAXIN) 00:00: mouth [place] 500 mg 00 daily. Medical tablet Branch methocarbam Yes [id number] 1000mg Take 2 [facility] ol 8-09 tablets by ity of (ROBAXIN) 00:00: mouth [place] 500 mg 00 daily. [facility] tablet [place] methocarbam Yes [id number] 1000mg Take 2 [facility] ol 8-09 tablets by ity of (ROBAXIN) 00:00: mouth [place] 500 mg 00 daily. [facility] tablet [place] methocarbam Yes [id number] 1000mg Take 2 Univers ol 8-09 tablets by ity of (ROBAXIN) 00:00: mouth [place] 500 mg 00 daily. [facility] tablet [place] methocarbam Yes [id number] 1000mg Take 2 [facility] ol 8-09 tablets by ity of (ROBAXIN) 00:00: mouth [place] 500 mg 00 daily. [facility] tablet [place] methocarbam Yes [id number] 1000mg Take 2 [facility] ol 8-09 tablets by ity of (ROBAXIN) 00:00: mouth [place] 500 mg 00 daily. [facility] tablet [place] methocarbam Yes [id number] 1000mg Take 2 [facility] ol 8-09 tablets by ity of (ROBAXIN) 00:00: mouth [place] 500 mg 00 daily. [facility] iohexol 2019- No 50mL 50 mL, Univers (OMNIPAQUE 04-19 07-31 Intravenou it y of 300-50 mL)) 15:00: 13:20 s, ONCE, 1 [place] injection 00 :00 dose, Wed Medic al 50 mL 04/19/19 at Branch 1000, Routine contrast 2019- No Intravenou Un divya previously 04-19 07-31 s, ONCE, 1 it y of administere 14:15: 14:15 dose, Wed [place] d 0 mL 00 :00 04/19/19 at [facility] 0915, [place] Routine NaCl 0.9% Yes 1000mL at 42 Unive rs (NS) IV 7-31 mL/hr, IV ity of infusion 13:08: [place] 00 CONTINUOUS Medic al , Starting Branch [facility] 04/19/19 at 0815, Until Discontinu ed, Routine gabapentin 2018- Yes 600mg Take 600 Un divya 600 mg 7-31 mg by ity of tablet 12:43: mouth. [place] 17 [facility] methocarbam Yes 750mg Take 750 U nivers ol 750 mg 7-31 mg by ity of tablet 12:43: mouth as [place] 17 needed. Medical Branch gabapentin 2019-0 Yes 600mg Take 600 Un divya 600 mg 7-31 mg by ity of tablet 12:43: mouth. [place] 17 Medical Branch methocarbam 0 Yes 750mg Take 750 U nivers ol 750 mg 7-31 mg by ity of tablet 12:43: mouth as [place] 17 needed. Medical Branch gabapentin 2019- Yes 600mg Take 600 Un divya 600 mg 7-31 mg by ity of tablet 12:43: mouth. [place] [address] Medical Branch methocarbam 0 Yes 750mg Take 750 U nivers ol 750 mg 7-31 mg by ity of tablet 12:43: mouth as [place] 17 needed. Medical Branch gabapentin 2018- Yes 600mg Take 600 Un divya 600 mg 7-31 mg by ity of tablet 12:43: mouth. [place] [address] Medical Branch methocarbam Yes 750mg Take 750 U nivers ol 750 mg 7-31 mg by ity of tablet 12:43: mouth as [place] 17 needed. Medical Branch gabapentin 2019- Yes 600mg Take 600 Un divya 600 mg 7-31 mg by ity of tablet 12:43: mouth. [place] [address] Medical Branch methocarbam Yes 750mg Take 750 U nivers ol 750 mg 7-31 mg by ity of tablet 12:43: mouth as [place] 17 needed. Medical Branch gabapentin 2018- Yes 600mg Take 600 Un divya 600 mg 7-31 mg by ity of tablet 12:43: mouth. [place] [address] Medical Branch methocarbam Yes 750mg Take 750 U nivers ol 750 mg 7-31 mg by ity of tablet 12:43: mouth as [place] 17 needed. Medical Branch gabapentin 2019-0 Yes 600mg Take 600 Un divya 600 mg 7-31 mg by ity of tablet 12:43: mouth. [place] [address] Medical Branch methocarbam 0 Yes 750mg Take 750 U nivers ol 750 mg 7-31 mg by ity of tablet 12:43: mouth as [place] 17 needed. Medical Branch gabapentin 2019-0 Yes 600mg Take 600 Un divya 600 mg 7-31 mg by ity of tablet 12:43: mouth. [place] [address] Medical Branch methocarbam 2018-0 Yes 750mg Take 750 U nivers ol 750 mg 7-31 mg by ity of tablet 12:43: mouth as [place] 17 needed. Medical Branch gabapentin 2018- Yes 600mg Take 600 Un divya 600 mg 7-31 mg by ity of tablet 12:43: mouth. [place] [address] Medical Branch methocarbam Yes 750mg Take 750 U nivers ol 750 mg 7-31 mg by ity of tablet 12:43: mouth as [place] 17 needed. Medical Branch gabapentin Yes 600mg Take 600 Un divya 600 mg 7-31 mg by ity of tablet 12:43: mouth. [place] [address] Medical Branch methocarbam Yes 750mg Take 750 U nivers ol 750 mg 7-31 mg by ity of tablet 12:43: mouth as [place] 17 needed. Medical Branch gabapentin Yes 600mg Take 600 Un divya 600 mg 7-31 mg by ity of tablet 12:43: mouth. [place] [address] Medical Branch methocarbam Yes 750mg Take 750 U nivers ol 750 mg 7-31 mg by ity of tablet 12:43: mouth as [place] 17 needed. Medical Branch gabapentin Yes 600mg Take 600 Un divya 600 mg 7-31 mg by ity of tablet 12:43: mouth. [place] [address] Medical Branch methocarbam Yes 750mg Take 750 U nivers ol 750 mg 7-31 mg by ity of tablet 12:43: mouth as [place] 17 needed. Medical Branch gabapentin Yes 600mg Take 600 Un divya 600 mg 7-31 mg by ity of tablet 12:43: mouth. [place] [address] Medical Branch methocarbam Yes 750mg Take 750 U nivers ol 750 mg 7-31 mg by ity of tablet 12:43: mouth as [place] 17 needed. Medical Branch gabapentin Yes 600mg Take 600 Un divya 600 mg 7-31 mg by ity of tablet 12:43: mouth. [place] [address] Medical Branch methocarbam Yes 750mg Take 750 U nivers ol 750 mg 7-31 mg by ity of tablet 12:43: mouth as [place] 17 needed. Medical Branch gabapentin 2018-0 Yes 600mg Take 600 Un divya 600 mg 7-31 mg by ity of tablet 12:43: mouth. [place] [address] Medical Branch methocarbam Yes 750mg Take 750 U nivers ol 750 mg 7-31 mg by ity of tablet 12:43: mouth as [place] 17 needed. Medical Branch gabapentin Yes 600mg Take 600 Un divya 600 mg 7-31 mg by ity of tablet 07:43: mouth. [place] 17 Medical Branch methocarbam Yes 750mg Take 750 U nivers ol 750 mg 7-31 mg by ity of tablet 07:43: mouth as [place] 17 needed. Medical Branch gabapentin Yes 600mg Take 600 Un divya 600 mg 7-31 mg by ity of tablet 07:43: mouth. [place] 17 Medical Branch methocarbam Yes 750mg Take 750 U nivers ol 750 mg 7-31 mg by ity of tablet 07:43: mouth as [place] needed. Medical Branch fexofenadin Yes 180mg Take 180 U nivers e (JUAN 6-11 mg by ity of ALLERGY) 18:30: mouth [place] 180 mg 36 daily. Medical tablet Branch BABY Yes Take by Univers ASPIRIN 6-11 mouth. ity of ORAL 18:30: [place] [address] Medical Branch MULTIVITAMI Yes Take by Uni vers N ORAL 6-11 mouth. ity of 18:30: [place] [address] Medical Branch COQ10, Yes Take by Univers LIPOSOMAL 6-11 mouth. ity of UBIQUINOL, 18:30: [place] ORAL Medical Branch Lactobacill Yes Take by Uni vers us combo 6-11 mouth. ity of no.23 (MICHELLE 18:30: [place] PROBIOTIC) 36 Medical 14 billion Branch cell Cap gluc Yes Take by Univers cantu/chondro 6-11 mouth. ity of cantu A/vit 18:30: [place] C/Mn 36 Medical (GLUCOSAMIN Branch E 1500 COMPLEX ORAL) fish,bora,f Yes Take by Uni vers lax 6-11 mouth. ity of oils-om3,6, 18:30: [place] 9no1 (OMEGA 36 Medical 3-6-9) Branch 1,200 mg Cap fexofenadin Yes 180mg Take 180 U nivers e (JUAN 6-11 mg by ity of ALLERGY) 18:30: mouth [place] 180 mg 36 daily. Medical tablet Branch BABY Yes Take by Univers ASPIRIN 6-11 mouth. ity of ORAL 18:30: [place] [address] Medical Branch MULTIVITAMI Yes Take by Uni vers N ORAL 6-11 mouth. ity of 18:30: [place] [address] Medical Branch COQ10, 2019-0 Yes Take by Univers LIPOSOMAL 6-11 mouth. ity of UBIQUINOL, 18:30: [place] ORAL Medical Branch Lactobacill 2018-0 Yes Take by Uni vers us combo 6-11 mouth. ity of no.23 (MICHELLE 18:30: [place] PROBIOTIC) 36 Medical 14 billion Branch cell Cap gluc 2019-0 Yes Take by Univers cantu/chondro 6-11 mouth. ity of cantu A/vit 18:30: [place] C/Mn 36 Medical (GLUCOSAMIN Branch E 1500 COMPLEX ORAL) fish,bora,f 2019-0 Yes Take by Uni vers lax 6-11 mouth. ity of oils-om3,6, 18:30: [place] 9no1 (OMEGA 36 Medical 3-6-9) Branch 1,200 mg Cap fexofenadin 2018-0 Yes 180mg Take 180 U nivers e (JUAN 6-11 mg by ity of ALLERGY) 18:30: mouth [place] 180 mg 36 daily. Medical tablet Branch BABY 0 Yes Take by Univers ASPIRIN 6-11 mouth. ity of ORAL 18:30: [address] Branch MULTIVITAMI 2018-0 Yes Take by Uni vers N ORAL 6-11 mouth. ity of 18:30: [place] [address] Medical Branch COQ10, 2018-0 Yes Take by Univers LIPOSOMAL 6-11 mouth. ity of UBIQUINOL, 18:30: [place] [address] Medical Branch Lactobacill 2018-0 Yes Take by Uni vers us combo 6-11 mouth. ity of no.23 (MICHELLE 18:30: [place] PROBIOTIC) 36 Medical 14 billion Branch cell Cap gluc 2019-0 Yes Take by Univers cantu/chondro 6-11 mouth. ity of cantu A/vit 18:30: [place] C/Mn 36 Medical (GLUCOSAMIN Branch E 1500 COMPLEX ORAL) fish,bora,f 2019-0 Yes Take by Uni vers lax 6-11 mouth. ity of oils-om3,6, 18:30: [place] 9no1 (OMEGA 36 Medical 3-6-9) Branch 1,200 mg Cap fexofenadin 2019-0 Yes 180mg Take 180 U nivers e (JUAN 6-11 mg by ity of ALLERGY) 18:30: mouth [place] 180 mg 36 daily. Medical tablet Branch BABY 2018-0 Yes Take by Univers ASPIRIN 6-11 mouth. ity of ORAL 18:30: [address] Branch MULTIVITAMI 2019-0 Yes Take by Uni vers N ORAL 6-11 mouth. ity of 18:30: [address] Branch COQ10, 0 Yes Take by Univers LIPOSOMAL 6-11 mouth. ity of UBIQUINOL, 18:30: [address] Branch Lactobacill 2018-0 Yes Take by Uni vers us combo 6-11 mouth. ity of no.23 (MICHELLE 18:30: [place] PROBIOTIC) 36 Medical 14 billion Branch cell Cap gluc 2019-0 Yes Take by Univers cantu/chondro 6-11 mouth. ity of cantu A/vit 18:30: [place] C/Mn 36 Medical (GLUCOSAMIN Branch E 1500 COMPLEX ORAL) fish,bora,f 2019-0 Yes Take by Uni vers lax 6-11 mouth. ity of oils-om3,6, 18:30: [place] 9no1 (OMEGA 36 Medical 3-6-9) Branch 1,200 mg Cap fexofenadin 2018-0 Yes 180mg Take 180 U nivers e (JUAN 6-11 mg by ity of ALLERGY) 18:30: mouth [place] 180 mg 36 daily. Medical tablet Branch BABY 2018-0 Yes Take by Univers ASPIRIN 6-11 mouth. ity of ORAL 18:30: [address] MULTIVITAMI 2018-0 Yes Take by Uni vers N ORAL 6-11 mouth. ity of 18:30: [address] COQ10, 2018-0 Yes Take by Univers LIPOSOMAL 6-11 mouth. ity of UBIQUINOL, 18:30: [address] Branch Lactobacill 2018-0 Yes Take by Uni vers us combo 6-11 mouth. ity of no.23 (MICHELLE 18:30: [place] PROBIOTIC) 36 [facility] 14 billion Branch cell Cap gluc 2019-0 Yes Take by Univers cantu/chondro 6-11 mouth. ity of cantu A/vit 18:30: [place] C/Vt 36 Medical (GLUCOSAMIN Branch E 1500 COMPLEX ORAL) fish,bora,f 2019-0 Yes Take by Uni vers lax 6-11 mouth. ity of oils-om3,6, 18:30: [place] 9no1 (OMEGA 36 Medical 3-6-9) Branch 1,200 mg Cap fexofenadin 2019-0 Yes 180mg Take 180 U nivers e (JUAN 6-11 mg by ity of ALLERGY) 18:30: mouth [place] 180 mg 36 daily. Medical tablet Branch BABY Yes Take by Univers ASPIRIN 6-11 mouth. ity of ORAL 18:30: [address] Branch MULTIVITAMI 2018-0 Yes Take by Uni vers N ORAL 6-11 mouth. ity of 18:30: [address] Branch COQ10, Yes Take by Univers LIPOSOMAL 6-11 mouth. ity of UBIQUINOL, 18:30: [place] [address] Medical Branch Lactobacill 0 Yes Take by Uni vers us combo 6-11 mouth. ity of no.23 (MICHELLE 18:30: [place] PROBIOTIC) 36 Medical 14 billion Branch cell Cap gluc 2018- Yes Take by Univers cantu/chondro 6-11 mouth. ity of cantu A/vit 18:30: [place] C/Mn 36 Medical (GLUCOSAMIN Branch E 1500 COMPLEX ORAL) fish,bora,f 2018-0 Yes Take by Uni vers lax 6-11 mouth. ity of oils-om3,6, 18:30: [place] 9no1 (OMEGA 36 Medical 3-6-9) Branch 1,200 mg Cap fexofenadin Yes 180mg Take 180 U nivers e (JUAN 6-11 mg by ity of ALLERGY) 18:30: mouth [place] 180 mg 36 daily. Medical tablet Branch BABY Yes Take by Univers ASPIRIN 6-11 mouth. ity of ORAL 18:30: [address] MULTIVITAMI Yes Take by Uni vers N ORAL 6-11 mouth. ity of 18:30: [address] Branch COQ10, Yes Take by Univers LIPOSOMAL 6-11 mouth. ity of UBIQUINOL, 18:30: [place] [address] Medical Branch Lactobacill 2018-0 Yes Take by Uni vers us combo 6-11 mouth. ity of no.23 (MICHELLE 18:30: [place] PROBIOTIC) 36 Medical 14 billion Branch cell Cap gluc 2019-0 Yes Take by Univers cantu/chondro 6-11 mouth. ity of cantu A/vit 18:30: [place] C/Mn 36 Medical (GLUCOSAMIN Branch E 1500 COMPLEX ORAL) fish,bora,f 2019-0 Yes Take by Uni vers lax 6-11 mouth. ity of oils-om3,6, 18:30: [place] 9no1 (OMEGA 36 Medical 3-6-9) Branch 1,200 mg Cap fexofenadin 2019- Yes 180mg Take 180 U nivers e (JUAN 6-11 mg by ity of ALLERGY) 18:30: mouth [place] 180 mg 36 daily. Medical tablet Branch BABY 0 Yes Take by Univers ASPIRIN 6-11 mouth. ity of ORAL 18:30: [place] [address] Medical Branch MULTIVITAMI Yes Take by Uni vers N ORAL 6-11 mouth. ity of 18:30: [place] [address] Medical Branch COQ10, Yes Take by Univers LIPOSOMAL 6-11 mouth. ity of UBIQUINOL, 18:30: [place] [address] Medical Branch Lactobacill Yes Take by Uni vers us combo 6-11 mouth. ity of no.23 (MICHELLE 18:30: [place] PROBIOTIC) 36 Medical 14 billion Branch cell Cap gluc 2018-0 Yes Take by Univers cantu/chondro 6-11 mouth. ity of cantu A/vit 18:30: [place] C/Mn 36 Medical (GLUCOSAMIN Branch E 1500 COMPLEX ORAL) fish,bora,f 2018- Yes Take by Uni vers lax 6-11 mouth. ity of oils-om3,6, 18:30: [place] 9no1 (OMEGA 36 Medical 3-6-9) Branch 1,200 mg Cap fexofenadin 2018- Yes 180mg Take 180 U nivers e (JUAN 6-11 mg by ity of ALLERGY) 18:30: mouth [place] 180 mg 36 daily. Medical tablet Branch BABY Yes Take by Univers ASPIRIN 6-11 mouth. ity of ORAL 18:30: [place] [address] Medical Branch MULTIVITAMI Yes Take by Uni vers N ORAL 6-11 mouth. ity of 18:30: [place] [address] Medical Branch COQ10, Yes Take by Univers LIPOSOMAL 6-11 mouth. ity of UBIQUINOL, 18:30: [place] [address] Medical Branch Lactobacill Yes Take by Uni vers us combo 6-11 mouth. ity of no.23 (MICHELLE 18:30: [place] PROBIOTIC) 36 Medical 14 billion Branch cell Cap gluc 2019- Yes Take by Univers cantu/chondro 6-11 mouth. ity of cantu A/vit 18:30: [place] C/Mn 36 Medical (GLUCOSAMIN Branch E 1500 COMPLEX ORAL) fish,bora,f 2019-0 Yes Take by Uni vers lax 6-11 mouth. ity of oils-om3,6, 18:30: [place] 9no1 (OMEGA 36 Medical 3-6-9) Branch 1,200 mg Cap fexofenadin 2019-0 Yes 180mg Take 180 U nivers e (JUAN 6-11 mg by ity of ALLERGY) 18:30: mouth [place] 180 mg 36 daily. Medical tablet Branch BABY Yes Take by Univers ASPIRIN 6-11 mouth. ity of ORAL 18:30: [address] Branch MULTIVITAMI Yes Take by Uni vers N ORAL 6-11 mouth. ity of 18:30: [place] [address] Medical Branch COQ10, Yes Take by Univers LIPOSOMAL 6-11 mouth. ity of UBIQUINOL, 18:30: [place] [address] Medical Branch Lactobacill Yes Take by Uni vers us combo 6-11 mouth. ity of no.23 (MICHELLE 18:30: [place] PROBIOTIC) 36 Medical 14 billion Branch cell Cap gluc 2018- Yes Take by Univers cantu/chondro 6-11 mouth. ity of cantu A/vit 18:30: [place] C/Mn 36 Medical (GLUCOSAMIN Branch E 1500 COMPLEX ORAL) fish,bora,f Yes Take by Uni vers lax 6-11 mouth. ity of oils-om3,6, 18:30: [place] 9no1 (OMEGA 36 Medical 3-6-9) Branch 1,200 mg Cap fexofenadin 0 Yes 180mg Take 180 U nivers e (JUAN 6-11 mg by ity of ALLERGY) 18:30: mouth [place] 180 mg 36 daily. Medical tablet Branch BABY Yes Take by Univers ASPIRIN 6-11 mouth. ity of ORAL 18:30: [address] Branch MULTIVITAMI Yes Take by Uni vers N ORAL 6-11 mouth. ity of 18:30: [place] [address] Medical Branch COQ10, Yes Take by Univers LIPOSOMAL 6-11 mouth. ity of UBIQUINOL, 18:30: [place] [address] Medical Branch Lactobacill 0 Yes Take by Uni vers us combo 6-11 mouth. ity of no.23 (MICHELLE 18:30: [place] PROBIOTIC) 36 Medical 14 billion Branch cell Cap gluc 2019-0 Yes Take by Univers cantu/chondro 6-11 mouth. ity of cantu A/vit 18:30: [place] C/Mn 36 Medical (GLUCOSAMIN Branch E 1500 COMPLEX ORAL) tuan demarco,f 2019-0 Yes Take by Uni vers lax 6-11 mouth. ity of oils-om3,6, 18:30: [place] 9no1 (OMEGA 36 Medical 3-6-9) Branch 1,200 mg Cap fexofenadin 2019-0 Yes 180mg Take 180 U nivers e (JUAN 6-11 mg by ity of ALLERGY) 18:30: mouth [place] 180 mg 36 daily. Medical tablet Branch BABY 2018-0 Yes Take by Univers ASPIRIN 6-11 mouth. ity of ORAL 18:30: [address] Branch MULTIVITAMI 0 Yes Take by Uni vers N ORAL 6-11 mouth. ity of 18:30: [address] Branch COQ10, Yes Take by Univers LIPOSOMAL 6-11 mouth. ity of UBIQUINOL, 18:30: [address] Branch Lactobacill 0 Yes Take by Uni vers us combo 6-11 mouth. ity of no.23 (MICHELLE 18:30: [place] PROBIOTIC) Medical 14 billion Branch cell Cap gluc 2019-0 Yes Take by Univers cantu/chondro 6-11 mouth. ity of cantu A/vit 18:30: [place] C/Mn 36 Medical (GLUCOSAMIN Branch E 1500 COMPLEX ORAL) tuan demarco,kayla 2018-0 Yes Take by Uni vers lax 6-11 mouth. ity of oils-om3,6, 18:30: [place] 9no1 (OMEGA 36 Medical 3-6-9) Branch 1,200 mg Cap fexofenadin 2019-0 Yes 180mg Take 180 U nivers e (JUAN 6-11 mg by ity of ALLERGY) 18:30: mouth [place] 180 mg 36 daily. Medical tablet Branch BABY 0 Yes Take by Univers ASPIRIN 6-11 mouth. ity of ORAL 18:30: [address] Branch MULTIVITAMI 2019-0 Yes Take by Uni vers N ORAL 6-11 mouth. ity of 18:30: [address] Branch COQ10, 2018-0 Yes Take by Univers LIPOSOMAL 6-11 mouth. ity of UBIQUINOL, 18:30: [place] [address] Medical Branch Lactobacill 2018-0 Yes Take by Uni vers us combo 6-11 mouth. ity of no.23 (MICHELLE 18:30: [place] PROBIOTIC) 36 Medical 14 billion Branch cell Cap gluc 2019-0 Yes Take by Univers cantu/chondro 6-11 mouth. ity of cantu A/vit 18:30: [place] C/Mn 36 Medical (GLUCOSAMIN Branch E 1500 COMPLEX ORAL) rin demarcoa,f 2018-0 Yes Take by Uni vers lax 6-11 mouth. ity of oils-om3,6, 18:30: [place] 9no1 (OMEGA 36 Medical 3-6-9) Branch 1,200 mg Cap fexofenadin 2018-0 Yes 180mg Take 180 U nivers e (JUAN 6-11 mg by ity of ALLERGY) 18:30: mouth [place] 180 mg 36 daily. Medical tablet Branch BABY Yes Take by Univers ASPIRIN 6-11 mouth. ity of ORAL 18:30: [address] MULTIVITAMI Yes Take by Uni vers N ORAL 6-11 mouth. ity of 18:30: [address] Branch COQ10, Yes Take by Univers LIPOSOMAL 6-11 mouth. ity of UBIQUINOL, 18:30: [address] Branch Lactobacill Yes Take by Uni vers us combo 6-11 mouth. ity of no.23 (MICHELLE 18:30: [place] PROBIOTIC) 36 Medical 14 billion Branch cell Cap gluc 2018- Yes Take by Univers cantu/chondro 6-11 mouth. ity of cantu A/vit 18:30: [facility] Medical (GLUCOSAMIN Branch E 1500 COMPLEX ORAL) tuan demarco,f 2018- Yes Take by Uni vers lax 6-11 mouth. ity of oils-om3,6, 18:30: [place] 9no1 (OMEGA 36 Medical 3-6-9) Branch 1,200 mg Cap fexofenadin 2018-0 Yes 180mg Take 180 U nivers e (JUAN 6-11 mg by ity of ALLERGY) 18:30: mouth [place] 180 mg 36 daily. Medical tablet Branch BABY 0 Yes Take by Univers ASPIRIN 6-11 mouth. ity of ORAL 18:30: [address] Branch MULTIVITAMI 0 Yes Take by Uni vers N ORAL 6-11 mouth. ity of 18:30: [address] Branch COQ10, 2018-0 Yes Take by Univers LIPOSOMAL 6-11 mouth. ity of UBIQUINOL, 18:30: [place] ORAL 36 Medical Branch Lactobacill Yes Take by Uni vers us combo 6-11 mouth. ity of no.23 (MICHELLE 18:30: [place] PROBIOTIC) 36 Medical 14 billion Branch cell Cap gluc Yes Take by Univers cantu/chondro 6-11 mouth. ity of cantu A/vit 18:30: [place] C/Mn 36 Medical (GLUCOSAMIN Branch E 1500 COMPLEX ORAL) fish,bora,f Yes Take by Uni vers lax 6-11 mouth. ity of oils-om3,6, 18:30: [place] 9no1 (OMEGA 36 [facility] 3-6-9) Branch 1,200 mg Cap montelukast Yes montelukas [facility] 10 mg 6-11 t 10 mg ity of tablet 18:23: tablet [address] [facility] 10 mg 6-11 t 10 mg ity of tablet 18:23: tablet [address] [facility] 10 mg 6-11 t 10 mg ity of tablet 18:23: tablet [address] montekast Yes [facility] 10 mg 6-11 t 10 mg ity of tablet 18:23: tablet [address] montelukast Yes [facility] 10 mg 6-11 t 10 mg ity of tablet 18:23: tablet [address] Yes [facility] 10 mg 6-11 t 10 mg ity of tablet 18:23: tablet [address] montelukast Yes [facility] 10 mg 6-11 t 10 mg ity of tablet 18:23: tablet [address] montekast Yes [facility] 10 mg 6-11 t 10 mg ity of tablet 18:23: tablet [address] montelukast Yes montelukas [facility] 10 mg 6-11 t 10 mg ity of tablet 18:23: tablet [address] Yes [facility] 10 mg 6-11 t 10 mg ity of tablet 18:23: tablet [address] [facility] 10 mg 6-11 t 10 mg ity of tablet 18:23: tablet [address] montelukast 2019 Yes [facility] 10 mg 6-11 t 10 mg ity of tablet 18:23: tablet [address] montelukast Yes montelukas [facility] 10 mg 6-11 t 10 mg ity of tablet 18:23: tablet [address] montelukast Yes montel[facility]as [facility] 10 mg 6-11 t 10 mg ity of tablet 18:23: tablet [address] montelukast Yes montelukas [facility] 10 mg 6-11 t 10 mg ity of tablet 18:23: tablet [address] fexofenadin Yes 180mg Take 180 U nivers e (JUAN 6-11 mg by ity of ALLERGY) 13:30: mouth [place] 180 mg 36 daily. Medical tablet Branch BABY Yes Take by Univers ASPIRIN 6-11 mouth. ity of ORAL 13:30: [address] Branch MULTIVITAMI Yes Take by Uni vers N ORAL 6-11 mouth. ity of 13:30: [address] Branch COQ10, Yes Take by Univers LIPOSOMAL 6-11 mouth. ity of UBIQUINOL, 13:30: [place] ORAL [address] [place] [address] Branch Lactobacill Yes Take by Uni vers us combo 6-11 mouth. ity of no.23 (MICHELLE 13:30: [place] PROBIOTIC) Medical 14 billion Branch cell Cap gluc Yes Take by Univers cantu/chondro 6-11 mouth. ity of cantu A/vit 13:30: [place] C/Mn Medical (GLUCOSAMIN Branch E 1500 COMPLEX ORAL) fish,bora,f Yes Take by Uni vers lax 6-11 mouth. ity of oils-om3,6, 13:30: [place] 9no1 (OMEGA 36 Medical 3-6-9) Branch 1,200 mg Cap fexofenadin 2018- Yes 180mg Take 180 U nivers e (JUAN 6-11 mg by ity of ALLERGY) 13:30: mouth [place] 180 mg 36 daily. Medical tablet Branch BABY Yes Take by Univers ASPIRIN 6-11 mouth. ity of ORAL 13:30: [address] Branch MULTIVITAMI Yes Take by Uni vers N ORAL 6-11 mouth. ity of 13:30: [address] Branch COQ10, 2019-0 Yes Take by Univers LIPOSOMAL 6-11 mouth. ity of UBIQUINOL, 13:30: [place] [id number] Medical Branch Lactobacill 2019-0 Yes Take by Uni vers us combo 6-11 mouth. ity of no.23 (MICHELLE 13:30: [place] PROBIOTIC) Medical 14 billion Branch cell Cap gluc 2019- Yes Take by Univers cantu/chondro 6-11 mouth. ity of cantu A/vit 13:30: [place] C/Mn Medical (GLUCOSAMIN Branch E 1500 COMPLEX ORAL) fish,bora,f 2019- Yes Take by Uni vers lax 6-11 mouth. ity of oils-om3,6, 13:30: [place] 9no1 (OMEGA 36 Medical 3-6-9) Branch 1,200 mg Cap montelukast 2019- Yes montelukas Univers 10 mg 6-11 t 10 mg ity of tablet 13:23: tablet [address] Branch montelukast 2018- Yes montelukas Univers 10 mg 6-11 t 10 mg ity of tablet 13:23: tablet [address] Lisinopril Lisinopril 2017- Yes Dejan 1 tablet Common 1-08 [facility] 00:00: - [facility] Klor-Con Klor-Con 2017- Yes Dejan 2 capsules Common Sprinkle Sprinkle -08 Ross with food Sp dinesh 00:00: - [facility] Triamterene Triamterene 2017- Yes Dejan 1 tablet Common -HCTZ -HCTZ 1-08 [facility] in the Spirit 00:00: morning - [facility] Gabapentin Gabapentin 2017- Yes Dejan 1 tablet Common 1-08 [facility] 00:00: - [facility] Simvastatin Simvastatin 2017- Yes Dejan 1 tablet Common 1-08 [facility] the Spirit 00:00: evening - [facility] lisinopril 2016- Yes lisinopril U nivers 20 mg 5-12 20 mg ity of tablet 00:00: tablet [address] lisinopril Yes lisinopril U nivers 20 mg 5-12 20 mg ity of tablet 00:00: tablet [facility] Branch lisinopril 2017-0 Yes lisinopril U nivers 20 mg 5-12 20 mg ity of tablet 00:00: tablet [facility] lisinopril 2017-0 Yes lisinopril U nivers 20 mg 5-12 20 mg ity of tablet 00:00: tablet [facility] lisinopril 2017-0 Yes lisinopril U nivers 20 mg 5-12 20 mg ity of tablet 00:00: tablet [facility] lisinopril 2017-0 Yes lisinopril U nivers 20 mg 5-12 20 mg ity of tablet 00:00: tablet [facility] lisinopril 2017-0 Yes lisinopril U nivers 20 mg 5-12 20 mg ity of tablet 00:00: tablet [facility] lisinopril 2017-0 Yes lisinopril U nivers 20 mg 5-12 20 mg ity of tablet 00:00: tablet [facility] Branch lisinopril 2017-0 Yes lisinopril U nivers 20 mg 5-12 20 mg ity of tablet 00:00: tablet [facility] lisinopril 2017-0 Yes lisinopril U nivers 20 mg 5-12 20 mg ity of tablet 00:00: tablet [facility] lisinopril 2017-0 Yes lisinopril U nivers 20 mg 5-12 20 mg ity of tablet 00:00: tablet [facility] lisinopril 2017-0 Yes lisinopril U nivers 20 mg 5-12 20 mg ity of tablet 00:00: tablet [facility] lisinopril 2017-0 Yes lisinopril U nivers 20 mg 5-12 20 mg ity of tablet 00:00: tablet [place] [facility] lisinopril 2017-0 Yes lisinopril U nivers 20 mg 5-12 20 mg ity of tablet 00:00: tablet [place] [facility] lisinopril 2017-0 Yes lisinopril U nivers 20 mg 5-12 20 mg ity of tablet 00:00: tablet [place] [facility] lisinopril 2017-0 Yes lisinopril U nivers 20 mg 5-12 20 mg ity of tablet 00:00: tablet [place] [facility] lisinopril 2017-0 Yes lisinopril U nivers 20 mg 5-12 20 mg ity of tablet 00:00: tablet [facility] simvastatin 2016-0 Yes 10mg QD Take 10 mg [facility] (ZOCOR) 10 4-[address] MG tablet 00:00: every Hospita 00 evening. l simvastatin 2016-0 Yes 10mg QD Take 10 mg [facility] (ZOCOR) 10 4-[address] MG tablet 00:00: every Hospita 00 evening. l simvastatin 2016-0 Yes 10mg QD Take 10 mg [facility] (ZOCOR) 10 4-[address] MG tablet 00:00: every Hospita 00 evening. l simvastatin 0 Yes 10mg QD Take 10 mg [facility] (ZOCOR) 10 4-[address] MG tablet 00:00: every Hospita 00 evening. l simvastatin Yes simvastati Univers 10 mg 4-25 n 10 mg ity of tablet 00:00: tablet [place] [facility] simvastatin 2016-0 Yes simvastati Univers 10 mg 4-25 n 10 mg ity of tablet 00:00: tablet [place] [facility] simvastatin 2016-0 Yes simvastati Univers 10 mg 4-25 n 10 mg ity of tablet 00:00: tablet [place] [facility] simvastatin 2017-0 Yes simvastati Univers 10 mg 4-25 n 10 mg ity of tablet 00:00: tablet [place] [facility] simvastatin 2017-0 Yes simvastati Univers 10 mg 4-25 n 10 mg ity of tablet 00:00: tablet [place] [facility] simvastatin 2017-0 Yes simvastati Univers 10 mg 4-25 n 10 mg ity of tablet 00:00: tablet [place] [facility] simvastatin 2017-0 Yes simvastati Univers 10 mg 4-25 n 10 mg ity of tablet 00:00: tablet [place] [facility] simvastatin 2017-0 Yes simvastati Univers 10 mg 4-25 n 10 mg ity of tablet 00:00: tablet [place] [facility] simvastatin 2017-0 Yes simvastati Univers 10 mg 4-25 n 10 mg ity of tablet 00:00: tablet [place] [facility] simvastatin 2017-0 Yes simvastati Univers 10 mg 4-25 n 10 mg ity of tablet 00:00: tablet [place] [facility] simvastatin 2017-0 Yes simvastati Univers 10 mg 4-25 n 10 mg ity of tablet 00:00: tablet [facility] simvastatin Yes simvastati Univers 10 mg 4-25 n 10 mg ity of tablet 00:00: tablet [facility] simvastatin Yes simvastati Univers 10 mg 4-25 n 10 mg ity of tablet 00:00: tablet [facility] simvastatin Yes simvastati Univers 10 mg 4-25 n 10 mg ity of tablet 00:00: tablet [facility] simvastatin Yes simvastati Univers 10 mg 4-25 n 10 mg ity of tablet 00:00: tablet [facility] simvastatin Yes simvastati Univers 10 mg 4-25 n 10 mg ity of tablet 00:00: tablet [place] [facility] simvastatin Yes simvastati Univers 10 mg 4-25 n 10 mg ity of tablet 00:00: tablet [place] [facility] simvastatin Yes 10mg QD Take 10 mg [facility] (ZOCOR) 10 4-[address] MG tablet 00:00: every Hospita 00 evening. l KLOR-CON Yes 8meq QD Take 8 mEq [facility] SPRINKLE 8 4-[address] mEq CR 00:00: every Hospita capsule 00 morning. l triamterene Yes 1{tbl} QD Take 1 [facility] -hydrochlor 4-[address] othiazid 00:00: mouth Hospita (MAXZIDE-25 00 every l ) 37.5-25 morning. mg per tablet KLOR-CON Yes 8meq QD Take 8 mEq [facility] SPRINKLE 8 4-[address] mEq CR 00:00: every Hospita capsule 00 morning. l triamterene Yes 1{tbl} QD Take 1 [facility] -hydrochlor 4-[address] othiazid 00:00: mouth Hospita (MAXZIDE-25 00 every l ) 37.5-25 morning. mg per tablet KLOR-CON Yes 8meq QD Take 8 mEq [facility] SPRINKLE 8 4-[address] mEq CR 00:00: every Hospita capsule 00 morning. l triamterene Yes 1{tbl} QD Take 1 [facility] -hydrochlor 4-[address] othiazid 00:00: mouth Hospita (MAXZIDE-25 00 every l ) 37.5-25 morning. mg per tablet KLOR-CON Yes 8meq QD Take 8 mEq [facility] SPRINKLE 8 4-[address] mEq CR 00:00: every Hospita capsule 00 morning. l triamterene Yes 1{tbl} QD Take 1 [facility] -hydrochlor 4-[address] othiazid 00:00: mouth Hospita (MAXZIDE-25 00 every l ) 37.5-25 morning. mg per tablet triamterene Yes triamteren Univers -hydrochlor 4-11 e 37.5 ity of othiazid 00:00: mg-hydroch Geremias as 37.5-25 mg 00 [facility]ia[facility] Med ical tablet de 25 mg Branch tablet potassium Yes Klor-Con Univ ers chloride 4-11 Sprinkle 8 ity o f (KLOR-CON 00:00: mEq [place] SPRINKLE) 8 00 capsule,ex Me dical mEq CR tended Branch capsule release triamterene Yes triamteren Univers -hydrochlor 4-11 e 37.5 ity of othiazid 00:00: mg-hydroch Geremias as 37.5-25 mg 00 lor[facility]ia[facility] Med ical tablet de 25 mg Branch tablet potassium Yes Klor-Con Univ ers chloride 4-11 Sprinkle 8 ity o f (KLOR-CON 00:00: mEq [place] SPRINKLE) 8 00 capsule,ex Me dical mEq CR tended Branch capsule release triamterene Yes triamteren Univers -hydrochlor 4-11 e 37.5 ity of othiazid 00:00: mg-hydroch Geremias as 37.5-25 mg 00 l[facility] Med ical tablet de 25 mg Branch tablet potassium Yes Klor-Con Univ ers chloride 4-11 Sprinkle 8 ity o f (KLOR-CON 00:00: mEq [place] SPRINKLE) 8 00 capsule,ex Me dical mEq CR tended Branch capsule release triamterene Yes triamteren Univers -hydrochlor 4-11 e 37.5 ity of othiazid 00:00: mg-hydroch Geremias as 37.5-25 mg 00 [facility] Med ical tablet de 25 mg Branch tablet potassium Yes Klor-Con Univ ers chloride 4-11 Sprinkle 8 ity o f (KLOR-CON 00:00: mEq [place] SPRINKLE) 8 00 capsule,ex Me dical mEq CR tended Branch capsule release triamterene Yes triamteren Univers -hydrochlor 4-11 e 37.5 ity of othiazid 00:00: mg-hydroch Geremias as 37.5-25 mg 00 [facility] Med ical tablet de 25 mg Branch tablet potassium Yes Klor-Con Univ ers chloride 4-11 Sprinkle 8 ity o f (KLOR-CON 00:00: mEq [place] SPRINKLE) 8 00 capsule,ex Me dical mEq CR tended Branch capsule release triamterene Yes triamteren Univers -hydrochlor 4-11 e 37.5 ity of othiazid 00:00: mg-hydroch Geremias as 37.5-25 mg 00 [facility] Med ical tablet de 25 mg Branch tablet potassium Yes Klor-Con Univ ers chloride 4-11 Sprinkle 8 ity o f (KLOR-CON 00:00: mEq [place] SPRINKLE) 8 00 capsule,ex Me dical mEq CR tended Branch capsule release triamterene Yes triamteren Univers -hydrochlor 411 e 37.5 ity of othiazid 00:00: mg-hydroch Geremias as 37.5-25 mg 00 [facility] Med ical tablet de 25 mg Branch tablet potassium Yes Klor-Con Univ ers chloride 4-11 Sprinkle 8 ity o f (KLOR-CON 00:00: mEq [place] SPRINKLE) 8 00 capsule,ex Me dical mEq CR tended Branch capsule release triamterene Yes triamteren Univers -hydrochlor 4-11 e 37.5 ity of othiazid 00:00: mg-hydroch Geremias as 37.5-25 mg 00 [facility] Med ical tablet de 25 mg Branch tablet potassium Yes Klor-Con Univ ers chloride 4-11 Sprinkle 8 ity o f (KLOR-CON 00:00: mEq [place] SPRINKLE) 8 00 capsule,ex Me dical mEq CR tended Branch capsule release triamterene Yes triamteren Univers -hydrochlor 4-11 e 37.5 ity of othiazid 00:00: mg-hydroch Geremias as 37.5-25 mg 00 [facility] Med ical tablet de 25 mg Branch tablet potassium Yes Klor-Con Univ ers chloride 4-11 Sprinkle 8 ity o f (KLOR-CON 00:00: mEq [place] SPRINKLE) 8 00 capsule,ex Me dical mEq CR tended Branch capsule release triamterene Yes triamteren Univers -hydrochlor 4-11 e 37.5 ity of othiazid 00:00: mg-hydroch Geremias as 37.5-25 mg 00 [facility] Med ical tablet de 25 mg Branch tablet potassium Yes Klor-Con Univ ers chloride 4-11 Sprinkle 8 ity o f (KLOR-CON 00:00: mEq [place] SPRINKLE) 8 00 capsule,ex Me dical mEq CR tended Branch capsule release triamterene Yes triamteren Univers -hydrochlor 4-11 e 37.5 ity of othiazid 00:00: mg-hydroch Geremias as 37.5-25 mg 00 [facility] Med ical tablet de 25 mg Branch tablet potassium Yes Klor-Con [facility] ers chloride 4-11 Sprinkle 8 ity o f (KLOR-CON 00:00: mEq [place] SPRINKLE) 8 00 capsule,ex Me dical mEq CR tended Branch capsule release triamterene Yes triamteren Univers -hydrochlor 4-11 e 37.5 ity of othiazid 00:00: mg-hydroch Gerem[place] as 37.5-25 mg 00 [facility] Med ical tablet de 25 mg Branch tablet potassium Yes Klor-Con Univ ers chloride 4-11 Sprinkle 8 ity o f (KLOR-CON 00:00: mEq [place] SPRINKLE) 8 00 capsule,ex Me dical mEq CR tended Branch capsule release triamterene Yes triamteren Univers -hydrochlor 4-11 e 37.5 ity of othiazid 00:00: mg-hydroch Geremias as 37.5-25 mg 00 [facility] Med ical tablet de 25 mg Branch tablet potassium Yes Klor-Con Univ ers chloride 4-11 Sprinkle 8 ity o f (KLOR-CON 00:00: mEq [place] SPRINKLE) 8 00 capsule,ex Me dical mEq CR tended Branch capsule release triamterene Yes triamteren Univers -hydrochlor 4-11 e 37.5 ity of othiazid 00:00: mg-hydroch Gerem[place] as 37.5-25 mg 00 [facility] Med ical tablet de 25 mg Branch tablet potassium Yes Klor-Con Univ ers chloride 4-11 Sprinkle 8 ity o f (KLOR-CON 00:00: mEq [place] SPRINKLE) 8 00 capsule,ex Me dical mEq CR tended Branch capsule release triamterene Yes triamteren Univers -hydrochlor 4-11 e 37.5 ity of othiazid 00:00: mg-hydroch [place]rem[place] as 37.5-25 mg 00 [facility] Med ical tablet de 25 mg Branch tablet potassium Yes Klor-Con Univ ers chloride 4-11 Sprinkle 8 ity o f (KLOR-CON 00:00: mEq [place] SPRINKLE) 8 00 capsule,ex Me dical mEq CR tended Branch capsule release triamterene Yes triamteren Univers -hydrochlor 4-11 e 37.5 ity of othiazid 00:00: mg-hydroch Geremias as 37.5-25 mg 00 [facility] Med ical tablet de 25 mg Branch tablet potassium Yes Klor-Con Univ ers chloride 4-11 Sprinkle 8 ity o f (KLOR-CON 00:00: mEq [place] SPRINKLE) 8 00 capsule,ex Me dical mEq CR tended Branch capsule release triamterene Yes triamteren Univers -hydrochlor 4-11 e 37.5 ity of othiazid 00:00: mg-hydroch Geremias as 37.5-25 mg 00 [facility] Med ical tablet de 25 mg Branch tablet potassium Yes Klor-Con Univ ers chloride 4-11 Sprinkle 8 ity o f (KLOR-CON 00:00: mEq [place] SPRINKLE) 8 00 capsule,ex Me dical mEq CR [facility] Branch capsule release KLOR-CON Yes 8meq QD Take 8 mEq [facility] SPRINKLE 8 4-[address] mEq CR 00:00: every Hospita capsule 00 morning. l triamterene Yes 1{tbl} QD Take 1 [facility] -hydrochlor 4-[address] othiazid 00:00: mouth Hospita (MAXZIDE-25 00 every l ) 37.5-25 morning. mg per tablet Ibuprofen Ibuprofen Yes Dejan 1 tablet Common [place] with food Spirit or milk as - [facility] needed [facility] Immunizations Ordered Filled Date Status Comments Source Immunization Name Immunization Name SARS-COV-2 COVID-19 2020-11-13 Completed Unive rsity of PFIZER VACCINE 00:00:00 [facility] SARS-COV-2 COVID-19 2020-11-13 Completed Unive rsity of PFIZER VACCINE 00:00:00 [facility] SARS-COV-2 COVID-19 2020-11-13 Completed Unive rsity of PFIZER VACCINE 00:00:00 [facility] SARS-COV-2 COVID-19 2020-11-13 Completed Unive rsity of PFIZER VACCINE 00:00:00 [facility] SARS-COV-2 COVID-19 2020-11-13 Completed Unive rsity of PFIZER VACCINE 00:00:00 [facility] SARS-COV-2 COVID-19 2020-11-13 Completed Unive rsity of PFIZER VACCINE 00:00:00 [facility] SARS-COV-2 COVID-19 2020-10-23 Completed Unive rsity of PFIZER VACCINE 00:00:00 [facility] SARS-COV-2 COVID-19 2020-10-23 Completed Unive rsity of PFIZER VACCINE 00:00:00 [facility] SARS-COV-2 COVID-19 2020-10-23 Completed Unive rsity of PFIZER VACCINE 00:00:00 [facility] SARS-COV-2 COVID-19 2020-10-23 Completed Unive rsity of PFIZER VACCINE 00:00:00 [facility] SARS-COV-2 COVID-19 2020-10-23 Completed Unive rsity of PFIZER VACCINE 00:00:00 [facility] SARS-COV-2 COVID-19 2020-10-23 Completed Unive rsity of PFIZER VACCINE 00:00:00 [facility] [id number] Unknown Completed Memor ial [facility] [id number] ER<sup>1</sup> [id number] Unknown Completed Memor ial [facility] [id number] ER<sup>2</sup> [id number] Unknown Completed Memor ial [facility] [id number] ER<sup>3</sup> Vital Signs Vital Name Observation Time Observation Value Comments Source Systolic blood 2019-04-28 20:07:00 139 mm[Hg] Univer sity of pressure [facility] [place] [facility] Diastolic blood 2019-04-28 20:07:00 73 mm[Hg] Unive rsity of [facility] Heart rate 2019-04-28 20:07:00 64 /min [facility] Body temperature 2019-04-28 20:07:00 36.39 [place] [facility] Respiratory rate 2019-04-28 20:07:00 18 /min [facility] Body height 2019-04-28 20:07:00 160 cm [facility] Body weight 2019-04-28 20:07:00 74.844 kg [facility] BMI 2019-04-28 20:07:00 29.23 kg/m2 [facility] Systolic blood 2019-04-28 20:07:00 139 mm[Hg] Univer sity of [facility] Diastolic blood 2019-04-28 20:07:00 73 mm[Hg] Unive rsity of pressure [facility] [place] [facility] Heart rate 2019-04-28 20:07:00 64 /min [facility] Body temperature 2019-04-28 20:07:00 36.39 [place] [facility] Respiratory rate 2019-04-28 20:07:00 18 /min [facility] Body height 2019-04-28 20:07:00 160 cm [facility] Body weight 2019-04-28 20:07:00 74.844 kg Universi ty [facility] [place] BMI 2019-04-28 20:07:00 29.23 kg/m2 Universi ty [facility] Systolic blood 2019-04-19 12:33:00 181 mm[Hg] Univer sity of pressure [place] [facility] [place] Diastolic blood 2019-04-19 12:33:00 73 mm[Hg] Unive rsity of pressure [facility] [place] [facility] Heart rate 2019-04-19 12:33:00 64 /min Universi [place] [facility] Body temperature 2019-04-19 12:33:00 36.61 Virgin[place] [facility] Respiratory rate 2019-04-19 12:33:00 16 /min [facility] Body height 2019-04-19 12:33:00 160 [facility] [place] [facility] Body weight 2019-04-19 12:33:00 74.844 kg [facility] BMI 2019-04-19 12:33:00 29.23 kg/m2 [facility] Oxygen saturation in 2019-04-19 12:33:00 96 /min University Arterial blood by [facility] Pulse oximetry [place] Systolic blood 2022-05-04 13:36:00 186 mm[Hg] Method ist [facility] pressure Diastolic blood 2022-05-04 13:36:00 81 mm[Hg] Metho [facility] [place] [facility] pressure Heart rate 2022-05-04 13:36:00 66 /min [facility] Body height 2022-05-04 13:36:00 160 cm [facility] Body weight 2022-05-04 13:36:00 74.447 kg [facility] BMI 2022-05-04 13:36:00 29.07 kg/m2 [facility] Oxygen saturation in 2022-05-04 13:36:00 98 /min [facility] Arterial blood by Pulse oximetry Respitory Rate 2022-03-18 18:30:00 Britt al [facility] Systolic (mm Hg) 2022-03-18 18:30:00 Erickshantelle rosales [facility] Diastolic (mm Hg) 2022-03-18 18:30:00 Mem orial [facility] Respitory Rate 2022-03-18 17:30:00 [facility] [place] Systolic (mm Hg) 2022-03-18 17:30:00 Erick rial [facility] Diastolic (mm Hg) 2022-03-18 17:30:00 Mem orial [facility] Respitory Rate 2022-03-18 16:30:00 Memori al [facility] Systolic (mm Hg) 2022-03-18 16:30:00 Erick rial [place] Diastolic (mm Hg) 2022-03-18 16:30:00 Mem orial [facility] Height 2022-03-18 12:16:00 160.02 cm [facility] [place] Weight 2022-03-18 12:16:00 [facility] BMI Calculated 2022-03-18 12:16:00 [facility] [place] Respitory Rate 2022-01-27 19:30:00 Memori al [place] Systolic (mm Hg) 2022-01-27 19:30:00 Erick rial [place] Diastolic (mm Hg) 2022-01-27 19:30:00 Mem orial [place] Respitory Rate 2022-01-27 18:30:00 [facility] [place] Systolic (mm Hg) 2022-01-27 18:30:00 Erick rial [place] Diastolic (mm Hg) 2022-01-27 18:30:00 Mem orial [place] Respitory Rate 2022-01-27 17:30:00 [facility] [place] Systolic (mm Hg) 2022-01-27 17:30:00 Erick rial [place] Diastolic (mm Hg) 2022-01-27 17:30:00 Mem orial [place] Height 2022-01-27 11:58:00 160.02 cm [facility] [place] Weight 2022-01-27 11:58:00 [facility] [place] BMI Calculated 2022-01-27 11:58:00 [facility]ori [facility] [place] Procedures Procedure Date / Time Performing Clinician Source Performed C-REACTIVE PROTEIN 2022-05-04 14:20:00 [facility] CBC WITH PLATELET AND 2022-05-04 14:20:00 [facility] DIFFERENTIAL COMPREHENSIVE METABOLIC 2022-05-04 14:20:00 [facility] PANEL SEDIMENTATION RATE 2022-05-04 14:20:00 [facility] XR CHEST 2 VW 2022-03-26 15:10:15 [facility] CONSENT/REFUSAL FOR 2022-03-26 14:38:04 [facility]igned[facility] ASSIGNMENT OF BENEFITS 2022-03-26 14:37:46 Doctor Unassigned, No [facility] CBC WITH PLATELET AND 2021-12-31 19:25:00 [facility] DIFFERENTIAL COMPREHENSIVE METABOLIC 2021-12-31 19:25:00 [facility] PANEL SEDIMENTATION RATE 2021-12-31 19:25:00 [facility] C-REACTIVE PROTEIN 2021-12-31 19:25:00 [facility] MR ANGIOGRAM HEAD WO 2020-12-26 18:31:43 [facility] MR BRAIN W WO CONTRAST 2020-11-19 21:11:49 [facility], [facility] 2020-11-19 19:36:27 Doctor Unassigned, No [facility] PATIENT QUESTIONNAIRE 2019-05-15 05:01:00 Doctor Unassigned, No [facility] CT LUMBAR MYELOGRAM 2019-04-19 14:12:12 Malik Paz [facility] IR SPINAL INJECTION 2019-04-19 13:45:00 Malik Paz [facility] DIAGNOSTIC OR [facility] THERAPEUTIC LUMBAR/SACRUM WITH IMAGE Plan of Care Planned Activity Planned Date Details Comments Source Future Scheduled 2023-07-15 SHINGLES VACCINES (1 Met [facility] Test 04:26:14 of 2) [code = SHINGLES VACCINES (1 of 2)] Future Scheduled 2023-07-15 65+ PNEUMOCOCCAL [facility] Test 04:26:14 VACCINE (1 - PCV) [code = 65+ PNEUMOCOCCAL VACCINE (1 - PCV)] Future Scheduled 2023-07-15 COVID-19 VACCINE (4 - [facility] Test 04:26:14 ) [code = COVID-19 VACCINE (4 - 2023-24 season)] Future Scheduled 2023-07-15 INFLUENZA VACCINE (#1) [facility] Test 04:26:14 [code = INFLUENZA VACCINE (#1)] Future Scheduled 2022-10-05 SHINGLES VACCINES (1 Met [facility] Test 15:49:57 of 2) [code = SHINGLES VACCINES (1 of 2)] Future Scheduled 2022-10-05 65+ PNEUMOCOCCAL [facility] Test 15:49:57 VACCINE (1 - PCV) [code = 65+ PNEUMOCOCCAL VACCINE (1 - PCV)] Future Scheduled 2022-10-05 COVID-19 VACCINE (4 - Me [facility] Hospital Test 15:49:57 Booster for Pfizer series) [code = COVID-19 VACCINE (4 - Booster for Pfizer series)] Future Scheduled 2022-10-05 INFLUENZA VACCINE Method [facility] Hospital Test 15:49:57 [code = INFLUENZA VACCINE] Future Scheduled 2022-09-20 SHINGLES VACCINES (1 Met [facility] Test 17:07:44 of 2) [code = SHINGLES VACCINES (1 of 2)] Future Scheduled 2022-09-20 65+ PNEUMOCOCCAL [facility] Test 17:07:44 VACCINE (1 - PCV) [code = 65+ PNEUMOCOCCAL VACCINE (1 - PCV)] Future Scheduled 2022-09-20 COVID-19 VACCINE (4 - [facility] [place] [facility] Test 17:07:44 Booster for Pfizer series) [code = COVID-19 VACCINE (4 - Booster for Pfizer series)] Future Scheduled 2022-09-20 INFLUENZA VACCINE Method [facility] Test 17:07:44 [code = INFLUENZA VACCINE] Future Scheduled 2022-09-20 SHINGLES VACCINES (1 Met [facility] Test 17:07:44 of 2) [code = SHINGLES VACCINES (1 of 2)] Future Scheduled 2022-09-20 65+ PNEUMOCOCCAL [facility] Test 17:07:44 VACCINE (1 - PCV) [code = 65+ PNEUMOCOCCAL VACCINE (1 - PCV)] Future Scheduled 2022-09-20 COVID-19 VACCINE (4 - Me [facility] Test 17:07:44 Booster for Pfizer series) [code = COVID-19 VACCINE (4 - Booster for Pfizer series)] Future Scheduled 2022-09-20 INFLUENZA VACCINE Method [facility] Test 17:07:44 [code = INFLUENZA VACCINE] Future Scheduled 2022-09-20 SHINGLES VACCINES (1 Met [facility] Test 17:07:44 of 2) [code = SHINGLES VACCINES (1 of 2)] Future Scheduled 2022-09-20 65+ PNEUMOCOCCAL [facility] Test 17:07:44 VACCINE (1 - PCV) [code = 65+ PNEUMOCOCCAL VACCINE (1 - PCV)] Future Scheduled 2022-09-20 COVID-19 VACCINE (4 - [facility] Test 17:07:44 Booster for Pfizer series) [code = COVID-19 VACCINE (4 - Booster for Pfizer series)] Future Scheduled 2022-09-20 INFLUENZA VACCINE [facility] 17:07:44 [code = INFLUENZA VACCINE] Encounters Start End Encounter Admission Attending Care Care Encounter Source Date/Time Date/Time Type Type Clinicians Facility Department ID 2023-05-19 Outpatient Brian Merrill [facility] [id number] [facility] 09:34:00 [id number] [facility] 2022-11-[address] [facility] [id number] [place] 10:16:11 [id number] [facility] 2023-01-18 2023-02-08 Outpatient BRIAN SCHUSTER [facility] [id number] [facility] 10:49:00 12:00:00 [facility] 2023-01-07 2023-01-07 Telephone Faculty, [facility] 1.2.840.114 [id number] [facility] 00:00:00 00:00:00 Adc [place] 350.1.13.10 i ty of Pulmonary [place] 4.2.7.2.686 [facility] PROFESSIO [id number] Fl dical NAL 085 Branch [facility] 2022-12-04 2022-12-04 Documentat Sabine, 1.2.840.1 [id number] Methodi 00:00:00 00:00:00 ion Raghavendra 03140.1.[address] 3.430.2.7 Hospit a .3.598707 l .8 2022-08-07 2022-08-07 Refill Georges, 1.2.840.1 [id number] 6861 Methodi 00:00:00 00:00:[address] [place] 3.430.2.7 Hospit a .3.816938 l .8 2022-08-07 2022-08-07 Refill [facility], 1.2.840.1 [id number] 3134 Methodi 00:00:00 00:00:[address] [place] 3.430.2.7 Hospit a .3.172700 l .8 2022-06-24 2022-06-24 Refill [facility], 1.2.840.1 [id number] 7939 Methodi 00:00:00 00:00:[address] [place] 3.430.2.7 Hospit a .3.704280 l .8 2022-05-04 2022-05-04 Office [facility], 1.2.840.1 [id number] 6476 Methodi 08:30:00 09:10:21 Visit Brianne 52139.1.[address] [place] 3.430.2.7 Hospit a .3.192472 l .8 2022-05-04 2022-05-04 Travel 1.2.840.1 1.2.901.375 9098 [id number] Methodi 00:00:00 00:00:[address] 3.430.2.7 0.2.7.3.698 Ho spita .3.243292 084.8 l .8 2022-04-21 2022-04-21 Refill [facility], 1.2.840.1 [id number] 8545 Methodi 00:00:00 00:00:[address] [place] 3.430.2.7 Hospit a .3.018181 l .8 2022-04-18 2022-04-18 Refill [facility], 1.2.840.1 [id number] 0827 Methodi 00:00:00 00:00:[address] [place] 3.430.2.7 Hospit a .3.236765 l .8 2022-03-262022-03-26 Outpatient R RADIOLOGY [facility] 21495 [id number] Univers 09:37:35 23:59:[address] [facility] Branch 2022-03-26 2022-03-26 Hospital Radiology [facility] 1.2.840.114 [id number] Univers 09:37:35 23:59:00 Encounter [place] 350.1.13.10 ity of [place] 4.2.7.2.686 [facility] [id number] [facility] 807 Branch 2022-03-18 2022-03-18 Bedded [facility] [id number] 675 [facility] 11:02:00 18:30:00 Outpatient r [address] 2022-03-18 2022-03-18 Outpatient Husam Lyn [facility] 4045 [id number] 06:02:00 13:30:00 Stan 01 2022-03-03 2022-03-03 Telephone Husam Lyn 6400 1.2.840.114 [id number] [place] 00:00:00 00:00:[address] 350.1.13.58 Health 9.2.7.2.686 [id number] 0 2022-03-03 2022-03-03 Telephone Husam Lyn [facility]TP 6400 1.2.840.114 [id number] [place] 00:00:00 00:00:[address] 350.1.13.58 Health 9.2.7.2.686 [id number] 0 2022-02-27 2022-02-27 Telephone Husam Lyn UTP 6400 1.2.840.114 [id number] [place] 00:00:00 00:00:[address] 350.1.13.58 Health 9.2.7.2.686 [id number] 0 2022-02-24 2022-02-24 Telephone Husam Lyn UTP 6400 1.2.840.114 [id number] [place] 00:00:00 00:00:[address] 350.1.13.58 Health 9.2.7.2.686 [id number] 0 2022-02-19 2022-02-19 Telephone Husam Lyn UTP 6400 1.2.840.114 [id number] [place] 00:00:00 00:00:[address] 350.1.13.58 Health 9.2.7.2.686 455.3920221 0 2022-02-17 2022-02-17 Refill Georges, 1.2.840.1 [id number] 3531 Methodi 00:00:00 00:00:[address] [place] 3.430.2.7 Hospit a .3.299233 l .8 2022-02-17 2022-02-17 Telephone LynHusam SELENA 6400 1.2.840.114 [id number] [place] 00:00:00 00:00:[address] 350.1.13.58 Health 9.2.7.2.686 [id number] 0 2022-01-30 2022-01-30 Telephone Husam Lyn 6400 1.2.840.114 [id number] [place] 00:00:00 00:00:[address] 350.1.13.58 Health 9.2.7.2.686 702.9359244 0 2022-01-29 2022-01-29 Telephone Eboni Husam WALTERS 6400 1.2.840.114 [id number] [place] 00:00:00 00:00:[address] 350.1.13.58 Health 9.2.7.2.686 [id number] 0 2022-01-27 2022-01-27 Bedded [facility] [id number] 675 [facility] 11:11:00 19:30:[address] 2022-01-27 2022-01-27 Outpatient Husam Lyn [facility] 4045 [id number] 06:11:00 14:30:00 Stan 00 2022-01-21 2022-01-21 Telephone EboniHusam 6400 1.2.840.114 [id number] [place] 00:00:00 00:00:[address] 350.1.13.58 Health 9.2.7.2.686 [id number] 0 2022-01-192022-01-19 Telephone Husam Lyn 6400 1.2.840.114 [id number] [place] 00:00:00 00:00:[address] 350.1.13.58 Health 9.2.7.2.686 [id number] 0 2022-01-16 2022-01-16 Consult Husam Lyn UTP 6400 1.2.840.114 13 [id number] [place] 11:00:00 11:30:[address] 350.1.13.58 Health 9.2.7.2.686 577.4267420 0 2022-01-05 2022-01-05 Orders Georges, 1.2.840.1 [id number] 9971 Methodi 00:00:00 00:00:00 Only Brianne 51138.1.[address] [place] 3.430.2.7 Hospit a .3.572753 l .8 2022-01-02 2022-01-02 Telephone Husam Lyn 6400 1.2.840.114 [id number] [place] 00:00:00 00:00:[address] 350.1.13.58 Health 9.2.7.2.686 [id number] 0 2021-12-31 2021-12-31 Office Georges, 1.2.840.1 [id number] 3840 Methodi 13:40:00 14:22:55 Visit Brianne 31188.1.[address] [place] 3.430.2.7 Hospit a .3.154656 l .8 2021-12-31 2021-12-31 Travel 1.2.840.1 1.2.433.672 9330 899166 Methodi 00:00:00 00:00:[address] 3.430.2.7 0.2.7.3.698 Ho spita .3.240938 084.8 l .8 2021-12-30 2021-12-30 Refill Georges, 1.2.840.1 [id number] 765539 3406 Methodi 00:00:00 00:00:[address] [place] 3.430.2.7 Hospit a .3.490557 l .8 2021-10-29 2021-10-29 Outpatient LISA Sharp [facility] DAYS [id number] [facility] 08:50:00 08:50:00 Mohamad 62 [facility] 2021-08-28 2021-08-28 Outpatient [facility] [id number] [address] [place] 00:00:00 00:00:[address] 2021-07-17 2021-07-17 Inpatient Mellisa Mata [facility] OUTD G001 [id number] [facility] 11:00:00 11:03:00 44 [facility] 2021-05-06 2021-05-06 Outpatient [facility] [id number] 9[address] [place] 00:00:00 00:00:[address] 2021-02-28 2021-02-28 Outpatient R RADIOLOGY [facility] [id number] 59770 [facility] 00:00:00 00:00:00 ity of [facility] 2021-02-10 2021-02-10 [facility] Radiology [facility] 1.2.840.114 [id number] [facility] 09:36:41 23:59:00 Encounter [place] 350.1.13.10 ity of [place] 4.2.7.2.686 [facility] [id number] [facility] [address] 2021-02-10 2021-02-10 Outpatient R RADIOLOGY [facility] [id number] [facility] 00:00:00 00:00:00 ity of [facility] 2021-02-06 2021-02-06 Outpatient [facility] [id number] [address] [place] 00:00:00 00:00:00 M[address] 2020-12-26 2020-12-26 [facility] Radiology [facility] 1.2.840.114 [id number] [facility] 12:37:36 23:59:00 Encounter [place] 350.1.13.10 ity of [place] 4.2.7.2.686 [facility] [id number] [facility] 804 [address] 2020-12-26 2020-12-26 Outpatient R RADIOLOGY [facility] [id number] Univers 00:00:00 00:00:00 ity of [facility] 2020-11-19 2020-11-19 Hospital Radiology [facility] 1.2.840.114 [id number] Univers 13:42:31 23:59:00 Encounter Axel 350.1.13.10 ity [facility] [place].7.2.[place] [id number] [facility] 804 [address] 2020-11-19 2020-11-19 Outpatient R RADIOLOGY [facility] [id number] [id number] Univers 13:42:31 23:59:00 ity of [facility] 2020-11-19 2020-11-19 Orders Doctor ANAND 1.2.840.114 [id number] Univers 00:00:00 00:00:00 Only Unassigned, ELLI[place] 350.1.13.10 ity of [place] [facility] 4.2.7.2.686 Geremias as [id number] [facility] 009 Branch 2020-11-13 2020-11-13 Outpatient R BRITTANY, [facility] [id number] [id number] Univers 09:30:00 09:30:00 ALESSANDRO ity of [facility] 2020-11-05 2020-11-05 Outpatient R RADIOLOGY [facility] [id number] Univers 00:00:00 00:00:00 ity of [facility] 2020-10-31 2020-10-31 Outpatient [facility] [id number] [address] [place] 00:00:00 00:00:[address] 2020-10-23 2020-10-23 [facility] [id number] Univers 11:40:00 11:40:00 ALESSANDRO ity of [facility] 2020-10-13 2020-10-13 Patient Ismael [facility] 1.2.840.114 [id number] Univers 00:00:00 00:00:00 Outreach Ronaldo HARRIS 350.1.13.10 i ty of [facility] 4[place]2.7.2.[place] [id number] Fl dical [address] [place] [address] 2020-08-09 2020-08-09 Outpatient [facility] [id number] 6[address] [place] 00:00:00 00:00:00 MOHAMMED 6[address] 2020-06-17 2020-06-17 Outpatient GEORGES, [facility] [id number] [address] [place] 00:00:00 00:00:00 MOHAMMED [address] 2020-05-01 2020-05-01 Outpatient GEORGES, [facility] [id number] 8[address] [place] 00:00:00 00:00:00 MOHAMMED [address] 2020-04-11 2020-04-11 Telephone Brandi, [facility] 1.2.840.114 [id number] 00:00:00 00:00:00 Malik Blair Axel 350.1.13.10 [place] 4.2.7.2.686 Professio [id number] nal [address] [place] [address] 2020-04-11 2020-04-11 [facility] 1.2.840.114 [id number] [facility] 00:00:00 00:00:00 Malik Reyna 350.1.13.10 it[place]2.[place] [id number] Fl dicky nal [address] [place] [address] 2019-11-30 2019-11-30 [facility] 1.2.840.114 [id number] 00:00:00 00:00:00 Malik [place] 350.1.13.10 [place] 4.2.7.2.686 Professio [id number] [address] 2019-11-30 2019-11-30 Refill [facility] 1.2.840.114 [id number] 953 00:00:00 00:00:00 Malik [place] 350.1.13.10 [place] 4.2.7.2.686 Professio [id number] [address] 2019-11-30 2019-11-30 [facility] 1.2.840.114 [id number] [id number] Univers 00:00:00 00:00:00 Malik Blair Axel 350.1.13.10 [place].2.[place] [id number] Fl dical nal [address] [place] [address] 2019-11-30 2019-11-30 [facility] 1.2.840.114 [id number] 953 Univers 00:00:00 00:00:00 Malik Reyna 350.1.13.10 [place].2.[place] [id number] Fl dical nal 092 [facility] 2019-05-15 2019-05-15 Orders Doctor ANAND 1.2.840.114 [id number] 00:00:00 00:00:00 Only Unassigned, ELLIOTT 350.1.13.10 [place] [facility] 4.2.7.2.686 [id number] [facility] 2019-05-15 2019-05-15 Orders Doctor ANAND 1.2.840.114 [id number] Univers 00:00:00 00:00:00 Only Unassigned, ELLIOTT 350.1.13.10 ity of [place] [facility] 4.2.7.2.686 Geremias as [id number] [facility] [address] [place] 2019-04-28 2019-04-28 [facility] 1.2.840.114 [id number] 14:32:05 15:50:16 Visit Malik Reyna 350.1.13.10 [place] 4.2.7.2.686 Professio [id number] [address] 2019-04-28 2019-04-28 [facility] 1.2.840.114 [id number] 569 [facility] 14:32:05 15:50:16 Visit Malik Reyna 350.1.13.10 it[place]2.[place] [id number] Fl dical nal 092 [facility] 2019-04-19 2019-04-19 [facility] 1.2.690.445 [id number] 6188 [facility] 08:00:00 23:59:00 Encounter Malik Reyna 350.1.13.10 it[place].2.[place] [id number] [facility] [address] [place] 2019-04-19 2019-04-19 [facility] 1.2.242.949 [id number] [facility] 07:24:17 07:59:00 Encounter Malik Reyna 350.1.13.10 ity of [place] 4.2.7.2.686 [facility] [id number] [address] 2019-04-12 2019-04-12 Patient Doctor ANAND 1.2.840.114 [id number] 00:00:00 00:00:00 Secure Msg Unassigned, E[place] 350.1.13.10 [place] [facility] 4.2.7.2.686 [id number] [facility] 2019-04-12 2019-04-12 Patient Doctor ANAND 1.2.840.114 [id number] Univers 00:00:00 00:00:00 Secure Msg Unassigned, ELLIOTT 350.1.13.10 ity of [place] [facility] 4.2.7.2.686 Geremias as [id number] [address] 2019-04-07 2019-04-07 Patient Doctor ANAND 1.2.840.114 [id number] 00:00:00 00:00:00 Secure Msg Unassigned, ELLIOTT 350.1.13.10 [place] [facility] 4.2.7.2.686 [id number] 044 2019-04-07 2019-04-07 Patient Doctor ANAND 1.2.840.114 [id number] Univers 00:00:00 00:00:00 Secure Msg Unassigned, ELLIOTT 350.1.13.10 ity of [place] [facility] 4.2.7.2.686 Geremias as [id number] [address] 2019-02-28 2019-02-28 Outpatient MALIK TALAVERA [facility] [id number] [facility] 14:31:28 23:59:00 AMLIK PAZ ity [facility] 2018-08-31 2018-08-31 Outpatient Cristy Kirk 23 [id number] Common 09:00:00 09:00:00 t [facility] 2018-08-25 2018-08-25 Outpatient Cristy Mcmahonosportheresa 23 [id number] Common 08:30:00 08:30:00 t [facility] Bone [facility] Sp[facility] t [facility] 2015-09-25 2015-09-25 Outpatient R ROGELIO, [facility] [id number] Univers 13:15:00 14:07:30 LORRAINE worley [facility] Results Test Description Test Time Test Comments Results Result Comments Source Sedimentation rate 2022-05-05 18:11:00 Test Item Value Reference Range Interpretation Comme nts Sedimentation rate (test See_Comment [A utomated message] The code = 4537-7) system which generated this result tra nsmitted reference range : 0 - 40 mm/hr. The refe rence range was not used to interpret this result as normal/abnormal . EJ (test code = EJ) Performed at: [address] [id number] Director: Tim Milligan MD, Phone: [phone] [facility]2022-08-16 18:11:00 Test Item Value Reference Range Interpretation Comments Sedimentation rate See_Comment [Automat ed (test code = 4537-7) message ] The system which generated this result transmitted reference range : 0 - 40 mm/hr. T he reference range was not used to interpret this result as normal/abnormal . EJ (test code = Performed at: EJ) - [address] [id number] Director: Tim Milligan MD, Phone: [phone] [facility]2022-08-16 18:11:00 Test Item Value Reference Range Interpretation Comments Sedimentation rate See_Comment [Automat ed (test code = 4537-7) message ] The system which generated this result transmitted reference range : 0 - 40 mm/hr. T he reference range was not used to interpret this result as normal/abnormal . EJ (test code = Performed at: EJ) - [address] [id number] Director: Tim Milligan MD, Phone: [phone] [facility]2022-08-16 18:11:00 Test Item Value Reference Range Interpretation Comments Sedimentation rate See_Comment [Automat ed (test code = 4537-7) message ] The system which generated this result transmitted reference range : 0 - 40 mm/hr. T he reference range was not used to interpret this result as normal/abnormal . EJ (test code = Performed at: 01 EJ) - [facility] [place], [place] [id number] Director: Tim Milligan MD, Phone: [phone] [facility] [id number] 14:10:00 Test Item Value Reference Range Interpretation Comments Glucose (test code = 131 mg/dL 65-99 H 2345-7) BUN (test code = 15 mg/dL 8-27 3094-0) Creatinine (test code 0.85 mg/dL 0.57-1.00 = 2160-0) eGFR (test code = 68 mL/min/1.73 See_Comment [Automa hermilo 8257) message] The system which generated this result transmitted reference range : >=59. The reference range was not used to interpret this result as normal/abnormal . BUN/creatinine ratio 12-28 (test code = 3097-3) Sodium (test code = 140 mmol/L 208-139 8202-2) Potassium (test code 4.2 mmol/L 3.5-5.2 = 2823-3) Chloride (test code = 100 mmol/L 96-106 2075-0) CO2 (test code = 24 mmol/L 20-29 8-9) Calcium (test code = 9.6 mg/dL 8.7-10.3 61258-5) Protein (test code = 6.6 g/dL 6.0-8.5 2885-2) Albumin, S (test code 4.3 g/dL 3.6-4.6 = 1751-7) Globulin, total (test 2.3 g/dL 1.5-4.5 code = 69992-4) Albumin/globulin 1.2-2.2 ratio (test code = 1759-0) Total bilirubin (test 0.3 mg/dL 0.0-1.2 code = 1975-2) Alkaline phosphatase See_Comment [Autom ated (test code = 6768-6) message ] The system which generated this result transmitted reference range : 44 - 121 IU/L. The reference range was not used to interpr et this result as normal/abnormal . AST (test code = See_Comment [Automated 1920-8) message] The system which generated this result transmitted reference range : 0 - 40 IU/L. Th e reference range was not used to interpret this result as normal/abnormal . ALT (test code = See_Comment [Automated 1742-6) message] The system which generated this result transmitted reference range : 0 - 32 IU/L. Th e reference range was not used to interpret this result as normal/abnormal . EJ (test code = EJ) Performed at: - [facility] [id number] Director: Tim Milligan MD, Phone: [phone] Lab Interpretation Abnormal (test code = 76508-6) [facility]-reactive [id number] 14:10:00 Test Item Value Reference Range Interpretation Comments CRP (test code = 6 mg/L 0-1988-01) EJ (test code = Performed at: EJ) [facility] [address] [id number] Director: Tim Milligan MD, Phone: [phone] [facility] with platelet and [id number] 14:10:00 Test Item Value Reference Range Interpretation Comments WBC (test code = See_Comment [Automated 6690-2) message] The system which generated this result transmitted reference range : 3.4 - 10.8 x10E3/uL. The reference range was not used to interpret this result as normal/abnormal . RBC (test code = See_Comment [Automated 789-8) message] The system which generated this result transmitted reference range : 3.77 - 5.28 x10E6/uL. The reference range was not used to interpret this result as normal/abnormal . HGB (test code = 14.8 g/dL 11.1-15.9 718-7) HCT (test code = 43.6 % 34.0-46.6 4544-3) MCV (test code = 90 fL 79-97 787-2) MCH (test code = 30.4 pg 26.6-33.0 785-6) MCHC (test code = 33.9 g/dL 31.5-35.7 786-4) RDW (test code = 12.3 % 11.7-15.4 788-0) Platelet count (test See_Comment [Autom ated code = 777-3) message] The system which generated this result transmitted reference range : 150 - 450 x10E3/uL. The reference range was not used to interpret this result as normal/abnormal . Neutrophils (test 82 % Not Estab. code = 770-8) Lymphocytes (test 8 % Not Estab. code = 736-9) Monocytes (test code 8 % Not Estab. = 5905-5) Eosinophils (test 1 % Not Estab. code = 713-8) Basophils (test code 1 % Not Estab. = 706-2) Neutrophils, absolute See_Comment H [Auto mated (test code = 751-8) message] The system which generated this result transmitted reference range : 1.4 - 7.0 x10E3/uL. The reference range was not used to interpret this result as normal/abnormal . Lymphocytes, absolute See_Comment [Auto mated (test code = 731-0) message] The system which generated this result transmitted reference range : 0.7 - 3.1 x10E3/uL. The reference range was not used to interpret this result as normal/abnormal . Monocytes, absolute See_Comment [Automa hermilo (test code = 742-7) message] The system which generated this result transmitted reference range : 0.1 - 0.9 x10E3/uL. The reference range was not used to interpret this result as normal/abnormal . Eosinophils, absolute See_Comment [Auto mated (test code = 711-2) message] The system which generated this result transmitted reference range : 0.0 - 0.4 x10E3/uL. The reference range was not used to interpret this result as normal/abnormal . Basophils, absolute See_Comment [Automa hermilo (test code = 704-7) message] The system which generated this result transmitted reference range : 0.0 - 0.2 x10E3/uL. The reference range was not used to interpret this result as normal/abnormal . Immature granulocytes 0 % Not Estab. (test code = 46572-2) Immature See_Comment [Automated granulocytes, message] The absolute (test code = system which 27925-2) generated this result transmitted reference range : 0.0 - 0.1 x10E3/uL. The reference range was not used to interpret this result as normal/abnormal . EJ (test code = EJ) Performed at: [address] [place], [place] [address] [place], [place] [id number] Director: Tim Milligan MD, Phone: [phone] Lab Interpretation Abnormal (test code = 50404-3) [facility] metabolic [id number] 14:10:00 Test Item Value Reference Range Interpretation Comments Glucose (test code = 131 mg/dL 65-99 H 2345-7) BUN (test code = 15 mg/dL 8-27 3094-0) Creatinine (test code 0.85 mg/dL 0.57-1.00 = 2160-0) eGFR (test code = 68 mL/min/1.73 See_Comment [Automa hermilo 8257) message] The system which generated this result transmitted reference range : >=59. The reference range was not used to interpret this result as normal/abnormal . BUN/creatinine ratio 12-28 (test code = 3097-3) Sodium (test code = 140 mmol/L 240-960 8129-2) Potassium (test code 4.2 mmol/L 3.5-5.2 = 2823-3) Chloride (test code = 100 mmol/L 96-106 2075-0) CO2 (test code = 24 mmol/L 20-29 2028-9) Calcium (test code = 9.6 mg/dL 8.7-10.3 66962-3) Protein (test code = 6.6 g/dL 6.0-8.5 2885-2) Albumin, S (test code 4.3 g/dL 3.6-4.6 = 1751-7) Globulin, total (test 2.3 g/dL 1.5-4.5 code = 13048-1) Albumin/globulin 1.2-2.2 ratio (test code = 1759-0) Total bilirubin (test 0.3 mg/dL 0.0-1.2 code = 1975-2) Alkaline phosphatase See_Comment [Autom ated (test code = 6768-6) message ] The system which generated this result transmitted reference range : 44 - 121 IU/L. The reference range was not used to interpr et this result as normal/abnormal . AST (test code = See_Comment [Automated 1919-8) message] The system which generated this result transmitted reference range : 0 - 40 IU/L. Th e reference range was not used to interpret this result as normal/abnormal . ALT (test code = See_Comment [Automated 1742-6) message] The system which generated this result transmitted reference range : 0 - 32 IU/L. Th e reference range was not used to interpret this result as normal/abnormal . EJ (test code = EJ) Performed at: [facility] [id number] Director: Tim Milligan MD, Phone: [phone] Lab Interpretation Abnormal (test code = 35463-8) [facility]-reactive [id number] 14:10:00 Test Item Value Reference Range Interpretation Comments CRP (test code = 6 mg/L 0-1988-01) EJ (test code = Performed at: EJ) [facility] [address] [id number] Director: Tim Milligan MD, Phone: [phone] [facility] with platelet and [id number] 14:10:00 Test Item Value Reference Range Interpretation Comments WBC (test code = See_Comment [Automated 6690-2) message] The system which generated this result transmitted reference range : 3.4 - 10.8 x10E3/uL. The reference range was not used to interpret this result as normal/abnormal . RBC (test code = See_Comment [Automated 559-8) message] The system which generated this result transmitted reference range : 3.77 - 5.28 x10E6/uL. The reference range was not used to interpret this result as normal/abnormal . HGB (test code = 14.8 g/dL 11.1-15.9 718-7) HCT (test code = 43.6 % 34.0-46.6 4544-3) MCV (test code = 90 fL 79-97 787-2) MCH (test code = 30.4 pg 26.6-33.0 785-6) MCHC (test code = 33.9 g/dL 31.5-35.7 786-4) RDW (test code = 12.3 % 11.7-15.4 788-0) Platelet count (test See_Comment [Autom ated code = 777-3) message] The system which generated this result transmitted reference range : 150 - 450 x10E3/uL. The reference range was not used to interpret this result as normal/abnormal . Neutrophils (test 82 % Not Estab. code = 770-8) Lymphocytes (test 8 % Not Estab. code = 736-9) Monocytes (test code 8 % Not Estab. = 5905-5) Eosinophils (test 1 % Not Estab. code = 713-8) Basophils (test code 1 % Not Estab. = 706-2) Neutrophils, absolute See_Comment H [Auto mated (test code = 751-8) message] The system which generated this result transmitted reference range : 1.4 - 7.0 x10E3/uL. The reference range was not used to interpret this result as normal/abnormal . Lymphocytes, absolute See_Comment [Auto mated (test code = 731-0) message] The system which generated this result transmitted reference range : 0.7 - 3.1 x10E3/uL. The reference range was not used to interpret this result as normal/abnormal . Monocytes, absolute See_Comment [Automa hermilo (test code = 742-7) message] The system which generated this result transmitted reference range : 0.1 - 0.9 x10E3/uL. The reference range was not used to interpret this result as normal/abnormal . Eosinophils, absolute See_Comment [Auto mated (test code = 711-2) message] The system which generated this result transmitted reference range : 0.0 - 0.4 x10E3/uL. The reference range was not used to interpret this result as normal/abnormal . Basophils, absolute See_Comment [Automa hermilo (test code = 704-7) message] The system which generated this result transmitted reference range : 0.0 - 0.2 x10E3/uL. The reference range was not used to interpret this result as normal/abnormal . Immature granulocytes 0 % Not Estab. (test code = 77380-3) Immature See_Comment [Automated granulocytes, message] The absolute (test code = system which 90604-8) generated this result transmitted reference range : 0.0 - 0.1 x10E3/uL. The reference range was not used to interpret this result as normal/abnormal . EJ (test code = EJ) Performed at: [address] [place] [address] [id number] Director: Tim Milligan MD, Phone: [phone] Lab Interpretation Abnormal (test code = 64520-6) [facility] metabolic [id number] 14:10:00 Test Item Value Reference Range Interpretation Comments Glucose (test code = 131 mg/dL 65-99 H 2345-7) BUN (test code = 15 mg/dL 8-27 3094-0) Creatinine (test code 0.85 mg/dL 0.57-1.00 = 2160-0) eGFR (test code = 68 mL/min/1.73 See_Comment [Automa hermilo 8257) message] The system which generated this result transmitted reference range : >=59. The reference range was not used to interpret this result as normal/abnormal . BUN/creatinine ratio 12-28 (test code = 3097-3) Sodium (test code = 140 mmol/L 747-374 9983-2) Potassium (test code 4.2 mmol/L 3.5-5.2 = 2823-3) Chloride (test code = 100 mmol/L 96-106 2075-0) CO2 (test code = 24 mmol/L 20-29 2028-9) Calcium (test code = 9.6 mg/dL 8.7-10.3 29318-6) Protein (test code = 6.6 g/dL 6.0-8.5 2885-2) Albumin, S (test code 4.3 g/dL 3.6-4.6 = 1751-7) Globulin, total (test 2.3 g/dL 1.5-4.5 code = 07396-5) Albumin/globulin 1.2-2.2 ratio (test code = 1759-0) Total bilirubin (test 0.3 mg/dL 0.0-1.2 code = 1975-2) Alkaline phosphatase See_Comment [Autom ated (test code = 6768-6) message ] The system which generated this result transmitted reference range : 44 - 121 IU/L. The reference range was not used to interpr et this result as normal/abnormal . AST (test code = See_Comment [Automated 192-8) message] The system which generated this result transmitted reference range : 0 - 40 IU/L. Th e reference range was not used to interpret this result as normal/abnormal . ALT (test code = See_Comment [Automated 1742-6) message] The system which generated this result transmitted reference range : 0 - 32 IU/L. Th e reference range was not used to interpret this result as normal/abnormal . EJ (test code = EJ) Performed at: [facility] [id number] Director: Tim Milligan MD, Phone: [phone] Lab Interpretation Abnormal (test code = 84567-1) [facility]-reactive [id number] 14:10:00 Test Item Value Reference Range Interpretation Comments CRP (test code = 6 mg/L 0-1987-) EJ (test code = Performed at: EJ) [facility] [id number] Director: Tim Milligan MD, Phone: [phone] [facility] with platelet and [id number] 14:10:00 Test Item Value Reference Range Interpretation Comments WBC (test code = See_Comment [Automated 6690-2) message] The system which generated this result transmitted reference range : 3.4 - 10.8 x10E3/uL. The reference range was not used to interpret this result as normal/abnormal . RBC (test code = See_Comment [Automated 789-8) message] The system which generated this result transmitted reference range : 3.77 - 5.28 x10E6/uL. The reference range was not used to interpret this result as normal/abnormal . HGB (test code = 14.8 g/dL 11.1-15.9 718-7) HCT (test code = 43.6 % 34.0-46.6 4544-3) MCV (test code = 90 fL 79-97 787-2) MCH (test code = 30.4 pg 26.6-33.0 785-6) MCHC (test code = 33.9 g/dL 31.5-35.7 786-4) RDW (test code = 12.3 % 11.7-15.4 788-0) Platelet count (test See_Comment [Autom ated code = 777-3) message] The system which generated this result transmitted reference range : 150 - 450 x10E3/uL. The reference range was not used to interpret this result as normal/abnormal . Neutrophils (test 82 % Not Estab. code = 770-8) Lymphocytes (test 8 % Not Estab. code = 736-9) Monocytes (test code 8 % Not Estab. = 5905-5) Eosinophils (test 1 % Not Estab. code = 713-8) Basophils (test code 1 % Not Estab. = 706-2) Neutrophils, absolute See_Comment H [Auto mated (test code = 751-8) message] The system which generated this result transmitted reference range : 1.4 - 7.0 x10E3/uL. The reference range was not used to interpret this result as normal/abnormal . Lymphocytes, absolute See_Comment [Auto mated (test code = 731-0) message] The system which generated this result transmitted reference range : 0.7 - 3.1 x10E3/uL. The reference range was not used to interpret this result as normal/abnormal . Monocytes, absolute See_Comment [Automa hermilo (test code = 742-7) message] The system which generated this result transmitted reference range : 0.1 - 0.9 x10E3/uL. The reference range was not used to interpret this result as normal/abnormal . Eosinophils, absolute See_Comment [Auto mated (test code = 711-2) message] The system which generated this result transmitted reference range : 0.0 - 0.4 x10E3/uL. The reference range was not used to interpret this result as normal/abnormal . Basophils, absolute See_Comment [Automa hermilo (test code = 704-7) message] The system which generated this result transmitted reference range : 0.0 - 0.2 x10E3/uL. The reference range was not used to interpret this result as normal/abnormal . Immature granulocytes 0 % Not Estab. (test code = 81001-8) Immature See_Comment [Automated granulocytes, message] The absolute (test code = system which 20028-1) generated this result transmitted reference range : 0.0 - 0.1 x10E3/uL. The reference range was not used to interpret this result as normal/abnormal . EJ (test code = EJ) Performed at: [address] [place] [address] [id number] Director: Tim Milligan MD, Phone: [phone] Lab Interpretation Abnormal (test code = 89872-8) [facility] [id number] 14:10:00 Test Item Value Reference Range Interpretation Comments Glucose (test code = 131 mg/dL 65-99 H 2345-7) BUN (test code = 15 mg/dL 8-27 3094-0) Creatinine (test code 0.85 mg/dL 0.57-1.00 = 2160-0) eGFR (test code = 68 mL/min/1.73 See_Comment [Automa hermilo 8257) message] The system which generated this result transmitted reference range : >=59. The reference range was not used to interpret this result as normal/abnormal . BUN/creatinine ratio 12-28 (test code = 3097-3) Sodium (test code = 140 mmol/L 544-908 7552-2) Potassium (test code 4.2 mmol/L 3.5-5.2 = 2823-3) Chloride (test code = 100 mmol/L 96-106 2075-0) CO2 (test code = 24 mmol/L 20-29 8-9) Calcium (test code = 9.6 mg/dL 8.7-10.3 74215-2) Protein (test code = 6.6 g/dL 6.0-8.5 2885-2) Albumin, S (test code 4.3 g/dL 3.6-4.6 = 1751-7) Globulin, total (test 2.3 g/dL 1.5-4.5 code = 94268-5) Albumin/globulin 1.2-2.2 ratio (test code = 1759-0) Total bilirubin (test 0.3 mg/dL 0.0-1.2 code = 1975-2) Alkaline phosphatase See_Comment [Autom ated (test code = 6768-6) message ] The system which generated this result transmitted reference range : 44 - 121 IU/L. The reference range was not used to interpr et this result as normal/abnormal . AST (test code = See_Comment [Automated 1919-) message] The system which generated this result transmitted reference range : 0 - 40 IU/L. Th e reference range was not used to interpret this result as normal/abnormal . ALT (test code = See_Comment [Automated 1742-6) message] The system which generated this result transmitted reference range : 0 - 32 IU/L. Th e reference range was not used to interpret this result as normal/abnormal . EJ (test code = EJ) Performed at: [facility] [id number] Director: Tim Milligan MD, Phone: [phone] Lab Interpretation Abnormal (test code = 13858-1) [facility]-reactive [id number] 14:10:00 Test Item Value Reference Range Interpretation Comments CRP (test code = 6 mg/L -1988-01) EJ (test code = Performed at: EJ) [facility] [address] [id number] Director: Tim Milligan MD, Phone: [phone] [facility] with platelet and baeykvdgbppl0251-39-37 14:10:00 Test Item Value Reference Range Interpretation Comments WBC (test code = See_Comment [Automated 6690-2) message] The system which generated this result transmitted reference range : 3.4 - 10.8 x10E3/uL. The reference range was not used to interpret this result as normal/abnormal . RBC (test code = See_Comment [Automated 919-8) message] The system which generated this result transmitted reference range : 3.77 - 5.28 x10E6/uL. The reference range was not used to interpret this result as normal/abnormal . HGB (test code = 14.8 g/dL 11.1-15.9 718-7) HCT (test code = 43.6 % 34.0-46.6 4544-3) MCV (test code = 90 fL 79-97 787-2) MCH (test code = 30.4 pg 26.6-33.0 785-6) MCHC (test code = 33.9 g/dL 31.5-35.7 786-4) RDW (test code = 12.3 % 11.7-15.4 788-0) Platelet count (test See_Comment [Autom ated code = 777-3) message] The system which generated this result transmitted reference range : 150 - 450 x10E3/uL. The reference range was not used to interpret this result as normal/abnormal . Neutrophils (test 82 % Not Estab. code = 770-8) Lymphocytes (test 8 % Not Estab. code = 736-9) Monocytes (test code 8 % Not Estab. = 5905-5) Eosinophils (test 1 % Not Estab. code = 713-8) Basophils (test code 1 % Not Estab. = 706-2) Neutrophils, absolute See_Comment H [Auto mated (test code = 751-8) message] The system which generated this result transmitted reference range : 1.4 - 7.0 x10E3/uL. The reference range was not used to interpret this result as normal/abnormal . Lymphocytes, absolute See_Comment [Auto mated (test code = 731-0) message] The system which generated this result transmitted reference range : 0.7 - 3.1 x10E3/uL. The reference range was not used to interpret this result as normal/abnormal . Monocytes, absolute See_Comment [Automa hermilo (test code = 742-7) message] The system which generated this result transmitted reference range : 0.1 - 0.9 x10E3/uL. The reference range was not used to interpret this result as normal/abnormal . Eosinophils, absolute See_Comment [Auto mated (test code = 711-2) message] The system which generated this result transmitted reference range : 0.0 - 0.4 x10E3/uL. The reference range was not used to interpret this result as normal/abnormal . Basophils, absolute See_Comment [Automa hermilo (test code = 704-7) message] The system which generated this result transmitted reference range : 0.0 - 0.2 x10E3/uL. The reference range was not used to interpret this result as normal/abnormal . Immature granulocytes 0 % Not Estab. (test code = 11480-7) Immature See_Comment [Automated granulocytes, message] The absolute (test code = system which 22313-8) generated this result transmitted reference range : 0.0 - 0.1 x10E3/uL. The reference range was not used to interpret this result as normal/abnormal . EJ (test code = EJ) Performed at: [facility] [id number] Director: Tim Milligan MD, Phone: [phone] Lab Interpretation Abnormal (test code = 27051-2) [facility] METABOLIC [id number] 14:44:00 Test Item Value Reference Range Interpretation Comments SODIUM (test code = NA) 138 mEq/L 134-147 N POTASSIUM (test code = 3.6 mEq/L 3.4-5.0 N K) CHLORIDE (test code = 103 mEq/L 100-108 N CL) CARBON DIOXIDE (test 27 mEq/l 21-33 N code = CO2) ANION GAP (test code = 11 0-20 N GAP) GLUCOSE (test code = 112 mg/dL 70-110 H GLU) BLOOD UREA NITROGEN 15 mg/dL 7-18 N (test code = BUN) GLOMERULAR FILTRATION 60.1 70-80 L Units of measure = RATE (test code = GFR) ml/mi n/1.73 m2 CREATININE (test code = 0.9 mg/dL 0.6-1.3 N CREAT) CALCIUM (test code = 9.5 mg/dL 8.0-10.5 N CA) CBC W/AUTO [id number] 14:30:00 Test Item Value Reference Range Interpretation Comments WHITE BLOOD CELL (test code = 8.6 x10 3/uL 4.5-11.0 N WBC) RED BLOOD CELL (test code = 4.80 x10 6/uL 3.54-5.02 N RBC) HEMOGLOBIN (test code = HGB) 14.1 g/dL 11.0-15.0 N HEMATOCRIT (test code = HCT) 43.2 % 33.0-45.0 N MEAN CELL VOLUME (test code = 90.0 fL 81.0-99.0 N MCV) MEAN CELL HGB (test code = MCH) 29.4 pg 27.0-33.0 N MEAN CELL HGB CONCETRATION 32.6 g/dL 33.0-37.0 L (test code = MCHC) RED CELL DISTRIBUTION WIDTH CV 12.9 % 11.5-14.5 N (test code = RDW) RED CELL DISTRIBUTION WIDTH SD 42.1 fL 37.0-54.0 N (test code = RDW-SD) PLATELET COUNT (test code = 295 x10 3/uL 150-400 N PLT) MEAN PLATELET VOLUME (test code 9.6 fL 7.0-9.0 H = MPV) NEUTROPHIL % (test code = NT%) 85.2 % 56.0-77.0 H IMMATURE GRANULOCYTE % (test 0.2 % 0.0-2.0 N code = IG%) LYMPHOCYTE % (test code = LY%) 7.1 % 14.0-32.0 L MONOCYTE % (test code = MO%) 6.7 % 4.8-9.0 N EOSINOPHIL % (test code = EO%) 0.3 % 0.3-3.7 N BASOPHIL % (test code = BA%) 0.5 % 0.0-2.0 N NUCLEATED RBC % (test code = 0.0 % 0-0 N NRBC%) NEUTROPHIL # (test code = NT#) 7.36 x10 3/uL 2.0-7.6 N IMMATURE GRANULOCYTE # (test 0.02 x10 3/uL 0.00-0.03 N code = IG#) LYMPHOCYTE # (test code = LY#) 0.61 x10 3/uL 1.0-3.8 L MONOCYTE # (test code = MO#) 0.58 x10 3/uL 0.1-0.8 N EOSINOPHIL # (test code = EO#) 0.03 x10 3/uL 0.0-0.2 N BASOPHIL # (test code = BA#) 0.04 x10 3/uL 0.0-0.2 N NUCLEATED RBC # (test code = 0.00 x10 3/uL 0.0-0.1 N NRBC#) MANUAL DIFF REQUIRED (test code NO = MDIFF) COVID 19 Asymptomatic IH [id number] 13:59:00 Test Item Value Reference Range Interpretation Comments COVID 19 Asymptomatic Negative Negative A nega tive result is IH AG (test code = presumpti ve and should COVNONPUIAG) be confirmedwit h an FDA authorized mole cular assay, if neces judith forpatient neelam gement.A positive result does not rule out co-inf ections withother patho gens.This test detects jannie th viable (live) and non-viable,SARS -CoV, and SARS-CoV-2. [place] t performance dep ends on theamount of vi [place] (antigen) in th e sample.This [place]in[place] t has not been FDA cleare d or approved; the t est hasbeen authori zed by FDA under an Em ergency Use Authorizati on(EUA) for use by labo ratories certified under the CLIA thatmeet the requirements to perform moderate, high or waivedcomplexit y tests. - XR FLUOROSCOPY 0-60 [id number] 00:00:00 [facility] : 1940 Sex: F FAX: Todd Ellison MD [phone] [place]: St: [facility] FAX: Brian Reagan MD [phone] Name: GEORGIELAURIE JIMENEZON [facility] : 1940 Age/S: 81/F [address] [place] [address] Unit #: [id number] Loc: [place] [address] Phys: Todd Sharp MD Acct: [id number] Dis Date: Status: [place] [facility] [place]ONE #: [phone] Exam Date: 10/29/20211934 FAX #: [phone] Reason: PAIN MANAGMENT STIMULATOR EXAMS: CPT CODE: [id number] XR FLUOROSCOPY 0-60 MIN 37317 PROCEDURE INFORMATION: Exam: FL Fluoroscopy, Up to 1 Hour Physician Time; Radiologist Not Present For Fluoroscopy Exam date and time: 10/29/2021 6:51 PM Age: 81 years old Clinical indication: Device placement; Additional info: Pain management stimulator; () TECHNIQUE: Imaging protocol: Fluoroscopy , up to 1 hour physician or other qualified health certified social workers in health care time. This radiologist did not supervise this procedure. Exam supervised by facility personnel. Report for radiation dosage reporting and documentation only. COMPARISON: No relevant prior studies available. RADIATION DOSE METRICS: Fluoroscopy time (seconds): seconds= 205.4 Number of fluoro spot images: images= 3 Reference air kerma (CHRISTELLE): 24.48 mGy FINDINGS: Procedural imaging: Spinal cord stimulator thoracic canal. Notes: Fluoroscopy supervised by facility personnel. See also separate procedure report. IMPRESSION: Fluoroscopy dosage documentation. See also separate procedure notes. at 2007 Reported and signed by: Deshaun Carlson M.D. CC: Todd Sharp MD; Brian Merrill MD Technologist: RT Jeremiah(R) Trnscrd Date/Time/By: 10/29/2021 (2007) : By: DanielleTTV Orig Print D/T: S: 10/29/2021 (2007) PAGE 1 Signed Report- XR CHEST 2 [id number] 00:00:00 [facility] 1940 Sex: F FAX: Todd Ellison MD [phone] [place]: St: REG FAX: Brian Reagan MD [phone] FAX: Crystal Morgan Name: HODAN CAVANAUGH [facility] Ayleen Arevalo : 1940 Age/S: 81/F [address] [place] [address] Unit #: [id number]: [place] [address] Phys: Crystal Morgan CRATE LINER Acct: [id number] Dis Date: Status: [place] [facility] PHONE #: [phone] Exam Date: 10/29/2021 1506 FAX #: [phone] Reason: PREOP EXAMS: CPT CODE: [id number] XR CHEST 2 V 01520 PROCEDURE INFORMATION: Exam: XR Chest Exam date and time: 10/29/2021 1:57 PM Age: 81 years old Clinical indication: Pre- operative exam; Respiratory screening exam; Additional info: Preop TECHNIQUE: Imaging protocol: XR of the chest. Views: 2 views. PA and Lateral COMPARISON: DX XR CHEST 2 V 07/17/2021 5:17 PM FINDINGS: Lungs: There are normal lung volumes without consolidation or interstitial opacities. Pleural spaces: Unremarkable. No pleural effusion. No pneumothorax.Heart/Mediastinum: The heart size is normal. The pulmonary vasculature is normal. The mediastinal contour is normal. The trachea is midline. Bones/joints: Degenerative change involves the thoracic spine. IMPRESSION: No acute cardiopulmonary findings. at 1519 Reported and signed by: Marvin Salazar M.D. CC: Todd Sharp MD; Brian Merrill MD; Crystal Morgan NP Technologist: RT Susanne(R) Trnscrd Date/Time/By: 10/29/2021 (222) : By: Henna Orig Print D/T: S: 10/29/2021 (7154) PAGE 1 Signed Report COVID 19 Asymptomatic IH [id number] 17:56:00 Test Item Value Reference Range Interpretation Comments COVID 19 Asymptomatic Negative Negative A nega tive result is IH AG (test code = presumpti ve and should COVNONPUIAG) be confirmedwit h an FDA authorized mole cular assay, if neces judith forpatient neelam gemjordy.A positive result does not rule out co-inf ections withother patho gens.This test detects jannie th viable (live) and non-viable,SARS -CoV, and SARS-CoV-2. [place] t performance dep ends on theamount of vi [place] (antigen) in th e sample.This [place]in[place] t has not been FDA cleare d or approved; the t est hasbeen authori zed by FDA under an Em ergency Use Authorizati on(EUA) for use by labo ratories certified under the CLIA thatmeet the requirements to perform moderate, high or waivedcomplexit y tests. - XR CHEST 2 [id number] 00:00:00 [facility] : 1940 Sex: F FAX: Brian Reagan MD [phone] [place]: St: PRE FAX: Mellisa Benson MD [phone] Name: HODAN CAVANAUGH [facility] : 1940 Age/S: 81/F [address] [place] [address] Unit #: [id number] Loc: [place] [address] Phys: Mellisa Riley MD Acct: [id number] Dis Date: Status: PRE IN PHONE #: [phone] Exam Date: 07/17/2021 1734 FAX #: [phone] Reason: PREOP EXAMS: CPT CODE: [id number] XR CHEST 2 V 69351 PROCEDURE INFORMATION: Exam: XR Chest Exam date and time: 07/17/2021 5:17 PM Age: 81 years old Clinicalindication: Other: Preop TECHNIQUE: Imaging protocol: XR of the chest. Views: 2 views. PA and Lateral COMPARISON: No relevant prior studies available. FINDINGS: Lungs: There are normal lung volumes without consolidation or interstitial oppacities. Pleural spaces: No pleural effusion. No pneumothorax. Heart/Mediastinum: Mild cardiomegaly. Vasculature: Aorta is tortuous. Bones/joints: Mild degenerativechanges throughout thoracic spine. IMPRESSION: No acute cardiopulmonary process. at 1844 Reported and signed by: Adrian Martinez M.D. CC: Brian Merrill MD; Mellisa Riley MD Technologist: Adelina Shoemaker RT(R)(M) Trnscrd Date/Time/By: 07/17/2021 (1843) : By: [email or web address] Orig Print D/T: S: 07/17/2021 (1844) PAGE 1 Signed ReportMR ANGIOGRAM HEAD WO [id number] 18:43:40 Unremarkable brain MRA. MR ANGIOGRAM HEAD WO CONTRAST HISTORY: Pulsatile tinnitus per written orders COMPARISON: None TECHNIQUE: 3-D ukec-xn-gdbqdw and postcontrast MR angiographic imaging ofthe brainobtained. MRA HEAD: The PICA origins are not seen bilaterally and bilateral PICA AICA complexesare suspected. The basilar artery is normal in caliber. The superiorcerebellar arteries are unremarkable. left PARKING ENFORCER noted. The posteriorcerebral arteries are unremarkable. The distal cervical, petrous, c avernous and supraclinoid internal carotidarteries are unremarkable. The anterior and middle cerebral arteries areunremarkable. [facility], Radiant Results Inft User - 12/26/2020 1:44 PM CDTMR ANGIOGRAM HEADWO CONTRASTHISTORY: Pulsatile tinnitus per written ordersCOMPARISON: NoneTECHNIQUE: 3-D upon-lv-ifamde and postcontrast MR angiographic imaging ofthe brain obtained.MRA HEAD:The PICA origins are not seen bilaterally and bilateral PICA AICA complexesare suspected. The basilar artery is normal in caliber. The superiorcerebellar arteries are unremarkable. left PARKING ENFORCER noted. The posteriorcerebral arteries are unremarkable. The distal cervical, petrous, cavernous and supraclinoid internal carotidarteries are unremarkable. The anterior and middle cerebral arteries areunremarkable. IMPRESSIONUnremarkable brain MRA.[facility]MR [facility] W WO [id number] 22:06:30 No acute intraparenchymal abnormality. No mass or pathological enhancement in the internal auditorycanal orcerebellar pontine angles. Neuro Quant age-related atrophy report demonstrates normal scan: Does notsupport neurodegeneration. Preliminary Report Dictated by Resident: Kayden Bourgeois MD., have reviewed this study and agree with theabove report.MR BRAIN W WO CONTRAST COMPARISON: None. HISTORY: ?External orders. Giant cell arteritis, tinnitus and memoryimpairment. TECH NIQUE: Multi weighted multiplanar MRI of the head was done withcontrast on 1.5 T MRI. 15 minute of ProHance was given. FINDINGS: The ventricles and cerebral sulci are normal in caliber and configurationfor the patient's age. No midline shift, hydrocephalus or pathologicalextra-axial fluid collection is present. The basal cisterns areunremarkable. No restricted diffusion is present to suggest acute/subacute infarct. Fewscattered hyperintense T2/FLAIR foci seen in the supratentorial whitematter, nonspecific and likely related to chronic microvascular ischemicchanges. No abnormal gradient blooming. Noabnormal enhancement seen. Evaluation of internal auditory canals and cerebellopontine anglesbilaterally shows no masses or pathological enhancement. Normal fluidsignal within the inner ear structures.The T2 flow voids for the major intracranial vessels are unremarkable.Right mastoid effusion noted. The paranasal sinuses are clear. Neuroquant: Age Related Atrophy report demonstrates: Hippocampal Occupancy Score: 0.70.Hippocampi volume: 5.25 cc, normal, normative percentile of 14.Superior Lateral Ventricles volume: 41.58, normal, normative percentile of59. Inferior Lateral Ventricles volume: 2.30, n ormal, normative percentile of27. The values listed above were within 2 SD of the mean. [facility], Radiant Results Inft User - 11/19/2020 4:07 PM CSTMR BRAIN W WO CONTRASTCOMPARISON: None.HISTORY: External orders. Giant cell arteritis, tinnitus and memoryimpairment.TECHNIQUE: Multi weighted multiplanar MRIof the head was done withcontrast on 1.5 T MRI. 15 minute of ProHance was given.FINDINGS:The ventricles and cerebral sulci are normal in caliber and configurationfor the patient's age. No midline shift, hydrocephalus or pathologicalextra-axial fluid collection is present. The basal cisterns areunremarkable.No restricted diffusion is present to suggest acute/subacute infarct. Fewscattered hyperintenseT2/FLAIR foci seen in the supratentorial whitematter, nonspecific and likely related to chronic microvascular ischemicchanges. No abnormal gradient blooming. No abnormal enhancement seen.Evaluation of internal auditory canals and cerebellopontine anglesbilaterally shows no masses or pathological enhancement. Normal fluidsignal within the inner ear structures.The T2 flow voids for the major intracranial vessels are unremarkable.Right mastoid effusion noted. The paranasal sinuses are clear.Neuroquant:Age Related Atrophy report demonstrates:Hippocampal Occupancy Score: 0.70.Hippocampi volume: 5.25 cc, normal, normative percentile of 14.Superior Lateral Ventricles volume: 41.58, normal, normative percentile of59. Inferior Lateral Ventricles volume: 2.30, normal, normative percentile of27. The values listed above were within 2 SD of the mean. IMPRESSIONNo acute intraparenchymal abnormality.No mass orpathological enhancement in the internal auditory canal orcerebellar pontine angles.Neuro Quant age-related atrophy report demonstrates normal scan: Does notsupport neurodegeneration.Preliminary ReportDictated by Resident: Marie Hampton MD., have reviewed this study and agree with theabove report.[facility]- XR FLUOROSCOPY 0-60 [id number] 12:41:00Patient Name: HODAN CAVANAUGH Unit No: [id number] EXAMS: CPT CODE: [id number] XR FLUOROSCOPY 0-60 MIN 11665 Fluoroscopy 1 view intraoperative 09/01/2019 12:40 PM CLINICAL HISTORY: Instrument localization COMPARISON: None available LOCATION: W1 IMPRESSION: Please correlate imaging report findings with the procedure note prepared by Dr. Brizuela, as an intra-procedure imaging consultation was not requested. Reported exposure: 0.6 mGy. at 1241 Reported and signed by: DESIREE HEWITT M.D. CC: Guanako Brizuela MD Technologist:Gualberto Damon Time: DAP (Gy m2): Air Kerma (mGy): Trscr Dt/Tm: 09/01/2019 (3641) by:[email or web address] Printed Date/Time: 09/01/2019 (9766) Name: HODAN CAVANAUGH [facility] Phys: Guanako Tomas MD [address] : 1940 Age: 79 Sex: [place] [address] Loc: P.SRG Exam Date: 09/01/2019 Status: [place] [facility] [place]: FAX: PAGE 1 Signed ReportCOMPREHENSIVE METABOLIC [id number] 12:28:00 Test Item Value Reference Range Interpretation Comments SODIUM (test code = 138 MMOL/L 136-143 N NA) POTASSIUM (test 4.1 MMOL/L 3.5-5.1 N code = K) CHLORIDE (test code 97 MMOL/L 98-107 L = CL) CARBON DIOXIDE 24 mmol/L 24-31 N (test code = CO2) GLUCOSE (test code 104 mg/dL 70-104 N = GLU) BLOOD UREA NITROGEN 14.7 MG/DL 7.0-21.0 N (test code = BUN) GLOMERULAR >=60 max >60 The estimated FILTRATION RATE estimate glomerular (test code = GFR) filtration rate is computed usingpatient ra ce, age (>18), sex, and serum creatinin e. If anyof the ne eded data elements a re missing the Laboratory [place] ot compute an estimation of t he glomerular filtration rate . CREATININE (test 0.8 mg/dL 0.8-1.5 N code = CREAT) TOTAL PROTEIN (test 6.9 g/dL 6.3-8.3 N code = PROT) ALBUMIN (test code 4.9 G/DL 3.5-5.0 N = ALB) CALCIUM (test code 9.7 mg/dL 8.8-10.2 N = CA) BILIRUBIN TOTAL 0.4 mg/dL 0.2-1.0 N (test code = BILT) SGOT/AST (test code 25 IU/L 10-34 N = AST) SGPT/ALT (test code 11 U/L 10-36 N = ALT) ALKALINE 116 U/L 32-104 H PHOSPHATASE (test code = ALKP) - XR CHEST 1 [id number] 12:28:00Patient Name: HODAN CAVANAUGH Unit No: [id number] EXAMS: CPT CODE: [id number] XR CHEST 1 V [id number] EXAMINATION: - XR CHEST 1 V. LOCATION: W1. HISTORY: PRE OP. COMPARISON: Radiograph dated 08/21/2016. TECHNIQUE: Single AP view of the chest was obtained. FINDINGS: The heart is normal in size. The lungs are clear. No acute osseous abnormality is identified. IMPRESSION: No acute cardiopulmonary abnormality. at 1228 Reported and signed by: CONCEPCION SEO M.D. CC: Guanako Brizuela MD Technologist: Merrill Gerbero Fluoro Time: DAP (Gy m2): Air Kerma (mGy): Trscr Dt/Tm: 08/25/2019 (1228) by:[email or web address] Printed Date/Time: 08/25/2019 (1231) Name: GEORGIEHODAN JIMENEZ ARELIS [facility] Phys: Guanako Tomas MD [address] :1940 Age: 79 Sex: [place] [address] Loc: P.SRG Exam Date: 08/25/2019 S tatus: PRE SDC PH: FAX: PAGE 1 Signed ReportPROTHROMBIN [id number] 12:20:00 Test Item Value Reference Range Interpretation Comments PROTHROMBIN TIME 10.4 SECONDS 10.3-12.9 N PATIENT (test code = PTP) INTERNATIONAL 0.90 INR UNIT 0.9-1.11 N The INR is us eful only NORMAL RATIO (test for monit oring code = INR) anticoagulant therapy.It may be unreliable in t he initial phase o f antigoagulation and in unstable patien ts. Indication for Anticoagulation Recommended INR 1. Prevention of v enous thomboembolism 2.0-3.0in high- risk patients; treat ment of venousthrombosi s and pulmonary embol ism aftera course o f heparin; preven tion of systemicembolis m in a variety of cond itions, including atria l fibrillation an d prothetic tissu e heart valves, 2. Pros thetic mechanical hear t valves; 2.5-3.5recurren t systemic emboli sm. THROMBOPLASTIN TIME [id number] 12:20:00 Test Item Value Reference Range Interpretation Comments THROMBOPLASTIN TIME 35.1 SECONDS 26.0-35.9 N INTERPRE TATIVE PARTIAL (test code = DATA: erapeutic PTT) range: Unfractionated heparin:47 - 71 seconds Argatroban:1.5 to 3 times the basel ine PTT CBC W/AUTO [id number] 12:17:00 Test Item Value Reference Range Interpretation [...] = BA#) 0.04 x10 3/uL 0.0-0.[address] LUMBAR [id number] 15:16:55HISTORY:?Back pain and left leg pain. TECHNIQUE: Post myelogram CT scan lumbar spine was completed using standardtechnique. Subsequently multiple sagittal and coronal reformations areobtained. FINDINGS: Spinal canal at the thoracolumbar junction appears to be ofadequate size. Conus/cauda equina are found at the level of T12. * T12-L1: Minimal disc desiccation with focal vacuum phenomenon. Minimaldiscbulge without cord compression or foraminal encroachment.* L1-L2: Minimal disc bulge without significant thecal sac compression orforaminal encroachment.* L2-L3: Minimal disc bulge without significant thecal sac compression orforaminal encroachment.* L3-L4: Slightly thickened ligamentum flavum causingminimal thecal saccompression.* L4-L5: Minimal spondylolisthesis of L4 over L5, bulging disc andthickened ligaments from hypertrophic facet arthritis causing spinalstenosis with moderate circumferential thecal sac compression. Foraminanarrowing noted on the right side by small osteophyte from the lower rightlateral L4 vertebral margin and facet arthritis without significant nerveroot compression.* L5-S1: Moderate degenerative disc disease with narrowing of the disc morethan 80%, vacuum phenomenon inthe disc material, small disc osteophytecomplex encroaching throughout the spinal canal without causing thecal saccompression. Foraminal encroachment noted on both sides with probableminimal pressure on the right nerve. CONCLUSIONS: 1. Spinal stenosis and right foraminal stenosis at L4-L5 secondary tograde1 spondylolisthesis of L4 over L5, prominent bulging of the disc andthickened ligaments secondary to facet arthritis causing moderate thecalsac compression. There is underfilling of left nerve by the contrast mediumat this level, probably due to extrinsic pressure by an osteophyte from thefacet joint.2. Moderate degenerative disc disease at L5-S1 with small disc osteophytecomplex encroaching into the spinal canal and into the neural foraminawithout thecal sac compression. Minimal right nerve root compressionsuspected.3. A large metallic screw inserted from ventral surface of the uppersacrum, into L4 vertebral body, through L5 and L4-L5/L5-S1 disc spaces.Very prominent radiolucent halo is seensurrounding the L4 portion andupper plate of L5, consistent with loosening of the metal. Bone sclerosisin L4 vertebral body noted surrounding the loose portion. [facility], Radiant Results Inft User - 04/19/2019 10:17 AM CDTHISTORY: Back pain and left leg pain.TECHNIQUE: Post myelogram CT scan lumbar spine was completed using standardtechnique. Subsequently multiple sagittal and coronal reformations areobtained.FINDINGS: Spinal canal at the thoracolumbar junction appears to be ofadequate size. Conus/caudaequina are found at the level of T12. * T12-L1: Minimal disc desiccation with focal vacuum phenomenon. Minimaldisc bulge without cord compression or foraminal encroachment.* L1-L2: Minimal disc bulge without significant thecal sac compression orforaminal encroachment.* L2-L3: Minimal disc bulge without significant thecal sac compression orforaminal encroachment.* L3-L4: Slightly thickened ligamentum flavum causing minimal thecal saccompression.* L4-L5: Minimal spondylolisthesis of L4 over L5, bulging disc andthickened ligaments from hypertrophic facet arthritis causing spinalstenosis with moderate circumferential thecal sac compression. Foraminanarrowing noted on the right side by small osteophytefrom the lower rightlateral L4 vertebral margin and facet arthritis without significant nerveroot compression.* L5-S1: Moderate degenerative disc disease with narrowing of the disc morethan 80%, vacuumphenomenon in the disc material, small disc osteophytecomplex encroaching throughout the spinal canal without causing thecal saccompression. Foraminal encroachment noted on both sides with probableminimal pressure on the right nerve.CONCLUSIONS: 1. Spinal stenosis and right foraminal stenosis at L4-L5 secondary to grade1 spondylolisthesis of L4 over L5, prominent bulging of the disc andthickened ligaments secondary to facet arthritis causing moderate thecalsac compression. There is underfilling of left nerve by the contrast mediumat this level, probably due to extrinsic pressure by an osteophyte from thefacet joint.2. Moderate degenerative disc disease at L5-S1 with small disc osteophytecomplex encroaching into the spinal canal and into the neural foraminawithout thecal sac compression. Minimal right nerve root compressionsuspected.3. A large metallic screw inserted from ventral surface of the uppersacrum, into L4 vertebral body, through L5 and L4-L5/L5-S1 disc spaces.Very prominent radiolucenthalo is seen surrounding the L4 portion andupper plate of L5, consistent with loosening of the metal. Bone sclerosisin L4 vertebral body noted surrounding the loose portion.[facility] THERAPEUTIC LUMBAR/SACRUM WITH [id number] 15:14:14HISTORY:?Back pain and left leg pain. History of 2 prior lumbar surgeries. TECHNIQUE: Informed consent was obtained from the patient after personallydiscussing the technique, risks involved and alternatives with the patient.After patient appeared to understand and agreed, informed consent wassigned bythe patient and witnessed by the technologist. Premedicationswere administered and using standard aseptic precautions, with localanesthesia, 22- gauge needle was advanced into the lumbar subarachnoid spaceat the level of L2- L3. Lumbar puncture was achieved with no difficulty. After confirming free flow of clear looking CSF, 10 ml. of contrast mediumwas instilled into the lumbar subarachnoid space using intermittentfluoroscopy. Multiple digital fluoroscopic images of the myelogram wereobtained, along with crosstable lateral views. Patient tolerated theprocedure well and experienced no apparent immediate complications. Patientwas transferred to CT suite in stable condition for post myelogram CTstudy.Patient will be observed in the outpatient department for next 3 to 4hours and, if stable, will be discharged to take rest at home. FINDINGS: Flow of contrast medium through the lumbar subarachnoid space was free of any significant obstruction. * L3-L4: Unremarkable. * L4-L5: Spinal stenosis with circumferential thecal sac compression andmild left nerve root compression. * L5-S1: Unremarkable. CONCLUSIONS: 1. Spinal stenosis with mild to moderate circumferential thecal saccompression and mild left and no root compression at L4-L5. No compressioncould be secondary to disc osteophyte complex as well as facet arthritis2. Large long metallic screw inserted through the sacrum into L4 vertebralbody noted with prominent radiolucent halo surrounding the component withinthe L4 vertebral body suggestive ofloosening of the metal. [facility], Radiant Results Inft User - 04/19/2019 10:14 AM CDTHISTORY: Back pain and left leg pain. History of 2 prior lumbar surgeries.TECHNIQUE: Informed consent was obtained from the patient after personallydiscussing the technique, risks involved and alternatives with the patient.After patient appeared to understand and agreed, informed consent wassigned by the patient and witnessed by the technologist. Premedicationswere administered and using standard aseptic precautions, with localanesthesia, 22-gauge needle was advanced into the lumbar subarachnoid spaceat the level of L2-L3. Lumbar puncture was achieved with no difficulty. After confirming free flow of clear looking CSF, 10 ml. of contrast mediumwas instilled into the lumbar subarachnoid space using intermittentfluoroscopy. Multiple digital fluoroscopic images of the myelogram wereobtained, along with crosstable lateral views. Patient tolerated theprocedure well and experienced no apparent immediate complications. Patientwas transferred to CT suite in stable condition for post myelogram CTstudy. Patient will be observed in the outpatient department for next 3 to 4hours and, if stable, will be discharged to take rest at home.FINDINGS: Flow of contrast medium through the lumbar subarachnoid space was free of any significant obstruction. * L3-L4: Unremarkable.* L4-L5: Spinal stenosis with circumferential thecal sac compression andmild left nerve root compression.* L5-S1: Unremarkable.CONCLUSIONS: 1. Spinal stenosiswith mild to moderate circumferential thecal saccompression and mild left and no root compression atL4-L5. No compressioncould be secondary to disc osteophyte complex as well as facet arthritis2. Large long metallic screw inserted through the sacrum into L4 vertebralbody noted with prominent radiolucent halo surrounding the component withinthe L4 vertebral body suggestive of loosening of the metal. [facility]
[2023-08-04] MEDS ORDERED: LIDOCAINE 1% MPF 30 ML VIAL ONE (06:15)
[2023-08-04] MEDS ORDERED: TDAP (DIPHTH,PERTUSS(ACELL),TET VAC) 0.5 ML VIAL IMVAC ONE (06:19)
--- NOTE | 2023-08-04 07:05 | ER ---
Nurse's Notes [facility] Name: Jackie Cavanaugh Age: 83 yrs Sex: Female : 1940 Arrival Date: 08/04/2023 Time: 05:40 Bed 18 Private MD: Diagnosis: Unspecified injury of head, initial encounter;Laceration without foreign body of scalp Presentation: 08/04 05:52 Chief complaint: Patient states: Headache pain of 3 with hematoma to posterior head and pf1 laceration to right side head,onset 0430. Patient stated was walking in the dark through the living room, tripped and fell while hitting head onto the corner of the coffee table and floor. Patient denies any LOC or taking blood thinners. 05:52 Coronavirus screen: Vaccine status: Patient reports receiving the 2nd dose of the covid pf1 vaccine. 3 doses Client denies travel out of the [place] in the last 14 days. Ebola Screen: Patient negative for fever greater than or equal to 101.5 degrees Fahrenheit, and additional compatible Ebola Virus Disease symptoms. Initial Sepsis Screen: Does the patient meet any 2 criteria? No. Patient's initial sepsis screen is negative. Does the patient have a suspected source of infection? No. Patient's initial sepsis screen is negative. Risk Assessment: Do you want to hurt yourself or someone else? Patient reports no desire to harm self or others. 05:52 Method Of Arrival: Wheelchair pf1 05:52 Acuity: ALEXUS 3 pf1 06:10 Onset of symptoms was August 04, 2023 at 04:30. 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 - Social history:: Smoking status: Patient denies any tobacco usage or history of. Patient/guardian denies using alcohol, street drugs. - Family history:: not pertinent. Screenin:10 [facility] ED Fall Risk Assessment (Adult) History of falling in the last 3 months, km8 including since admission Yes- single mechanical fall (1 pt) Confusion or Disorientation No (0 pts) Intoxicated or Sedated No (0 pts) Impaired Gait No (0 pts) Mobility Assist Device Used No (0 pt) Altered Elimination No (0 pt) Score/Fall Risk Level 0 - 2 = Low Risk Oriented to surroundings, Maintained a safe environment, Educated pt \T\ family on fall prevention, incl call for assistance when getting out of bed, Assessed \T\ reinforced patient's understanding of fall precautions, Used ambulatory aids as needed (educated on \T\ assisted with). Abuse screen: Denies threats or abuse. Denies injuries from another. Nutritional screening: No deficits noted. Tuberculosis screening: No symptoms or risk factors identified. Assessment: 06:10 General: Appears in no apparent distress. comfortable, Behavior is calm, cooperative, km8 appropriate for age. 06:10 Pain: Complains of pain in scalp Pain currently is 3 out of 10 on a pain scale. Neuro: km8 Cha Agitation-Sedation Scale (RASS): 0 - Alert and Calm Level of Consciousness is awake, alert, obeys commands, Oriented to person, place, time, situation. Cardiovascular: Denies chest pain, lightheadedness, shortness of breath, Capillary refill < 3 seconds Patient's skin is warm and dry. Respiratory: Airway is patent Respiratory effort is even, unlabored, Respiratory pattern is regular, symmetrical. GI: No signs and/or symptoms were reported involving the gastrointestinal system. : No signs and/or symptoms were reported regarding the genitourinary system. EENT: No signs and/or symptoms were reported regarding the EENT system. Derm: Skin is intact, is healthy with good turgor, Skin is dry, Skin is pink, warm \T\ dry. normal, Skin temperature is warm Wound noted scalp Wound is laceration. Musculoskeletal: No signs and/or symptoms reported regarding the musculoskeletal system. Range of motion: intact in all extremities. 07:05 Reassessment: Patient appears in no apparent distress at this time. Patient and/or db family updated on plan of care and expected duration. Pain level reassessed. Patient is alert, oriented x 3, equal unlabored respirations, skin warm/dry/pink. PATIENT HAS DRESSING ON HEAD. INTACT. PLACED PRIOR TO MY SHIFT. General: Appears in no apparent distress. comfortable, Behavior is calm, cooperative. Neuro: Cha Agitation-Sedation Scale (RASS): 0 - Alert and Calm Level of Consciousness is awake, alert, obeys commands, Oriented to person, place, time, situation. Vital Signs: 05:52 BP 210 / 75; Pulse 69; Resp 16; Temp 97.9; Pulse Ox 99% on R/A; Weight 68.49 kg; Height pf1 5 ft. 3 in. ; Pain 3/10; 07:05 BP 176 / 100; Pulse 68; Resp 16; Pulse Ox 98% on R/A; db 05:52 Body Mass Index 26.75 (68.49 kg, 160.02 cm) pf1 05:52 Pain Scale: Adult pf1 [place] Coma Score: 06:10 Eye Response: spontaneous(4). Motor Response: obeys commands(6). Verbal Response: km8 oriented(5). Total: 15. ED Course: 05:43 Patient arrived in ED. gm2 05:46 Patti Johnson RN is Primary Nurse. km8 05:50 Zackary Cadet MD is Attending Physician. sp4 06:10 Patient has correct armband on for positive identification. Placed in gown. Bed in low km8 position. Call light in reach. Side rails up X2. Client placed on continuous cardiac and pulse oximetry monitoring. NIBP monitoring applied. monitor and storage bin tender on. Door closed. Warm blanket given. 06:10 Arm band placed on right wrist. km8 06:10 Patient maintains SpO2 saturation greater than 95% on room air. km8 06:16 Head Brain Wo Cont CT In Process Unspecified. EDMS 06:17 Triage completed. pf1 07:18 Provided Education on: DISCHARGE, LACERATION CARE. db 07:18 No provider procedures requiring assistance completed. Patient did not have IV access db during this emergency room visit. Administered Medications: 06:12 Drug: Tetanus-Diphtheria Toxoid IM Adult 0.5 ml IM once; Provide Vaccine Information km8 Statement (VIS). 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 Cadet.} Volume: 20 ml; Route: Infiltration; 07:24 Follow up: Response: No adverse reaction db 07:09 Drug: traMADol PO 100 mg PO once Route: PO; db 07:24 Follow up: Response: No adverse reaction db 07:09 Drug: Ondansetron PO 4 mg PO once Route: PO; db 07:24 Follow up: Response: No adverse reaction db Medication: 06:12 Vaccine Information Statement (VIS) provided today. Questions and/or concerns km8 addressed. VIS edition date: August 04, 2023. Outcome: 07:04 Discharge ordered by MD. ramirez 07:18 Discharged to home via wheelchair, with significant other, db 07:18 Condition: stable 07:18 Discharge instructions given to patient, significant other, Instructed on discharge instructions, follow up and referral plans. Prescriptions given X 2, 07:26 Patient left the ED. db Signatures: Dispatcher [employer] Chiquis Jeff RN RN db Lorena Coleman RN RN [email or web address] Zackary Cadet MD MD sp4 Renu Andujar 2 Patti Johnson RN RN km8
--- NOTE | 2023-08-04 07:05 | EDPHYS ---
Physician Documentation [facility] Name: Jackie Cavanaugh Age: 83 yrs Sex: Female : 1940 Arrival Date: 08/04/2023 Time: 05:40 Bed 18 Private MD: ED Physician Zackary Cadet HPI: 08/04 05:50 This 83 yrs old Female presents to ER via Unassigned with complaints of Fall sp4 Injury, Laceration To Head. 06:05 laceration right parietal location. Patient reports she woke up this morning and sp4 accidentally stumbled striking her head on a coffee table. The injury happened at approximately 4:30 in the morning. Patient denies syncope, denied loss consciousness, denied other symptoms. Patient has significant amount of clotted blood to her hair precluding full evaluation of her laceration.. Historical: - Allergies: 06:17 Latex; pf1 06:17 PENICILLINS; pf1 - PMHx: 06:17 Hypertensive disorder; pf1 - PSHx: 06:17 spinal cord stimulator; bilateral breast mastectomy; Appendectomy; Cholecystectomy; pf1 Tonsillectomy; port-a-cath removed; - Immunization history:: Adult Immunizations not up to date, Last tetanus immunization: > 10 years ago Flu vaccine is up to date. - Social history:: Smoking status: Patient denies any tobacco usage or history of. Patient/guardian denies using alcohol, street drugs. - Family history:: not pertinent. ROS: 06:05 Constitutional: Negative for fever, chills, and weight loss, positive accidental right sp4 parietal head injury, positive bleeding from scalp laceration 06:05 All other systems are negative, Exam: 06:05 Constitutional: This is a well developed, well nourished patient who is awake, alert, sp4 and in no acute distress. Patient is frail elderly female who is ambulatory with assistance . Head/Face: Normocephalic, positive for right parietal scalp laceration Eyes: Pupils equal round and reactive to light, extra-ocular motions intact. Lids and lashes normal. Conjunctiva and sclera are not injected. Cornea within normal limits. Periorbital areas with no swelling, redness, or edema. ENT: Nares patent. No nasal discharge, no septal abnormalities noted. Tympanic membranes are normal and external auditory canals are clear. Oropharynx with no redness, swelling, or masses, exudates, or evidence of obstruction, uvula midline. Mucous membranes moist. Neck: Trachea midline, no thyromegaly or masses palpated, and no cervical lymphadenopathy. Supple, full range of motion without nuchal rigidity, or vertebral point tenderness. Chest/axilla: Normal chest wall appearance and motion. Nontender with no deformity. No lesions are appreciated. Cardiovascular: Regular rate and rhythm with a normal S1 and S2. No gallops, murmurs, or rubs. Normal PMI, no JVD. No pulse deficits. Respiratory: Lungs have equal breath sounds bilaterally, clear to auscultation and percussion. No rales, rhonchi or wheezes noted. No increased work of breathing, no retractions or nasal flaring. Abdomen/GI: Soft, non-tender, with normal bowel sounds. No distension or tympany. No guarding or rebound. No evidence of tenderness throughout. Back: No spinal tenderness. No costovertebral tenderness. Skin: Warm, dry with normal turgor. Normal color with no rashes, no lesions, and no evidence of cellulitis. MS/ Extremity: Pulses equal, no cyanosis. Neurovascular intact. Full, normal range of motion. Neuro: Awake and alert, GCS 15, oriented to person, place, time, and situation. Cranial nerves II-XII grossly intact. Motor strength 5/5 in all extremities. Sensory grossly intact. Psych: Awake, alert, with orientation to person, place and time. Behavior, mood, and affect are within normal limits Vital Signs: 05:52 BP 210 / 75; Pulse 69; Resp 16; Temp 97.9; Pulse Ox 99% on R/A; Weight 68.49 kg; Height pf1 5 ft. 3 in. ; Pain 3/10; 07:05 BP 176 / 100; Pulse 68; Resp 16; Pulse Ox 98% on R/A; db 05:52 Body Mass Index 26.75 (68.49 kg, 160.02 cm) pf1 05:52 Pain Scale: Adult pf1 Bruce Coma Score: 06:10 Eye Response: spontaneous(4). Motor Response: obeys commands(6). Verbal Response: km8 oriented(5). Total: 15. Laceration: 07:00 Wound Repair of 5cm ( 2.0in ) subcutaneous laceration to right parietal area. sp4 Irregularly shaped.. Moderate contamination.. Distal neuro/vascular/tendon intact. Anesthesia: Wound infiltrated with 20 mls of 1% lidocaine. Wound prep: Extensive cleansing by me, Wound explored, Copious irrigation. Skin closed with 9 3-0 Silk using interrupted sutures and sterile technique. Dressed with 4x4's, Kerlix. Patient tolerated well. MDM: 05:50 Patient medically screened. sp4 07:00 ED course: CT head - COMPARISON: No relevant prior studies available. FINDINGS: Brain: sp4 Mild nonspecific white matter changes likely related to chronic microvascular ischemic disease. No hemorrhage. Ventricles: Unremarkable. No ventriculomegaly. Bones/joints: Unremarkable. No acute fracture. Soft tissues: Left posterior scalp swelling. Sinuses: Unremarkable as visualized. Mastoid air cells: Unremarkable as visualized. No mastoid effusion. IMPRESSION: No acute intracranial abnormality. . 07:00 Differential diagnosis: abrasion, contusion, laceration, multiple trauma, sprain, sp4 strain. Data reviewed: vital signs, nurses notes, radiologic studies, CT scan. Consideration of Admission/Observation Escalation of care including admission/observation considered. ED course: CT head is negative, laceration repair, tetanus given. Patient stable for discharge home. Patient advised to do daily shower rinses. Silk sutures should fall out by themselves in 14 to 20 days. . 08/04 05:46 Order name: Head Brain Wo Cont CT sb4 08/04 05:50 Order name: Dressing - Wound; Complete Time: 07:01 sp4 08/04 05:50 Order name: Gloves, Sterile; Complete Time: 06:03 sp4 08/04 05:50 Order name: Setup Suture Tray; Complete Time: 06:03 sp4 Administered Medications: 06:12 Drug: Tetanus-Diphtheria Toxoid IM Adult 0.5 ml IM once; Provide Vaccine Information km8 Statement (VIS). {Product Analyst: J. Hilburn; Exp: Sat Feb 10 2025; Lot #: [id number]; Series: 1 of 1; Patient Consent: Obtained; Date/Time: ; Source Name: Jackie Cavanaugh; Source Relationship: Self; Address Information: [address] [place] [address], [place] [address]; ; Education: Provided; VIS Presented Date: ; VIS Publication: Tetanus/Diphtheria/Pertussis (Tdap/Td) VIS 10/13/2011 (historic)} Route: IM; Site: right deltoid; 06:50 Follow up: Response: No adverse reaction km8 06:50 Drug: Lidocaine Infiltration (1 %) 20 ml 20 ml Infiltration once; to bedside {Note: km8 given by Dr. Cadet.} Volume: 20 ml; Route: Infiltration; 07:24 Follow up: Response: No adverse reaction db 07:09 Drug: traMADol PO 100 mg PO once Route: PO; db 07:24 Follow up: Response: No adverse reaction db 07:09 Drug: Ondansetron PO 4 mg PO once Route: PO; db 07:24 Follow up: Response: No adverse reaction db Disposition Summary: 08/04/23 07:04 Discharge Ordered Problem: new sp4 Symptoms: have improved sp4 Condition: Stable sp4 Diagnosis - Unspecified injury of head, initial encounter sp4 - Laceration without foreign body of scalp sp4 Followup: sp4 - With: Private Physician - When: 7 - 10 days - Reason: Recheck today's complaints Discharge Instructions: - Discharge Summary Sheet sp4 - Laceration Care, Adult, [id number] sp4 Forms: - Patient Portal Instructions sp4 Prescriptions: - Tramadol 50 mg Oral tablet - take 1 tablet ORAL route every 8 hours as needed; 20 tablet; Refills: 0, sp4 Product Selection Permitted - methocarbamol 750 mg Oral tablet - take 1 tablet ORAL route every 8 hours PRN pain; 30 tablet; Refills: 0, Product sp4 Selection Permitted Signatures: Dispatcher [employer] Chiquis Jeff, RN RN db Lorena Coleman RN RN pf1 Zackary Cadet MD MD sp4 Patti Johnson RN RN km8
[2023-08-04] MEDS ORDERED: ONDANSETRON 4 MG (ODT) TAB ONE (07:24)
[2023-08-04] MEDS ORDERED: TRAMADOL HCL 50 MG TAB ONE (07:24)
[2023-08-04 07:31] VITALS: TEMP 97.9
[2023-08-04 07:32] VITALS: BP 176/100; O2SAT 98
--- NOTE | 2023-08-04 12:55 | RAD REPORT ---
EXAM DESCRIPTION: CT - Head Brain Wo Cont - 08/04/2023 6:34 am CLINICAL HISTORY: The patient is 83 years old and is Female; FALL INJURY TECHNIQUE: Axial computed tomography images of the head/brain without intravenous contrast. Sagitt al and coronal reformatted images were created and reviewed. This CT exam was performed using one o r more of the following dose reduction techniques: automated exposure control, adjustment of the mA and/or kV according to patient size, and/or use of iterative reconstruction technique. COMPARISON: No relevant prior studies available. FINDINGS: Brain: Mild nonspecific white matter changes likely related to chronic microvascular isc hemic disease. No hemorrhage. Ventricles: Unremarkable. No ventriculomegaly. Bones/joints: Unremarkable. No acute fracture. Soft tissues: Left posterior scalp swelling. Sinuses: Unremarkable as visualized. Mastoid air cells: Unremarkable as visualized. No mastoid effusion. IMPRESSION: No acute intracranial abnormality. Electronically signed by: Adam Dumont MD 08/04/2023 06:27 AM EMERGING TECHNOLOGIES DIRECTOR Due to temporary technical issues with the PACS/Fluency reporting system, reports are being signed by the in house radiologist without review as a courtesy to ensure prompt reporting. The interpreting r adiologist is fully responsible for the content of the report.
== END 2023-08-04 07:26 | disposition home or self-care (01) ==
LOC: ER 05:40
PROC: 0HQ0XZZ Repair Scalp Skin, External Approach (ICD-10-PCS; principal; 2023-08-04)
DX: S01.01XA Laceration without foreign body of scalp, initial encounter (principal); Z23 Encounter for immunization; I10 Essential (primary) hypertension; Z88.0 Allergy status to penicillin; Z91.040 Latex allergy status
CPT/HCPCS: 70450; 90471; 99285; 12002; Q0162; J2001

== ENCOUNTER 2024-06-04 10:47 | Emergency (ER) | payer OTHER ==
--- NOTE | 2024-06-04 11:44 | RAD REPORT ---
EXAMINATION: ONE VIEW CHEST XR CLINICAL INDICATION: Female, 84 years old. [facility] MAIN Chest pain;SOB Bed Name: 17 TECHNIQUE: 1 View, AP supine, X-ray of the chest was performed. [id number]. COMPARISON: No prior exam. FINDINGS: Lungs and pleura: Clear lungs. No effusion. Heart and mediastinum: Normal heart size. Unremarkable mediastinal contours. Osseous structures: No acute abnormality. Tubes/lines: Centimeter. Other: None. IMPRESSION: No acute intrathoracic abnormality.
[2024-06-04 12:21] LABS: Absolute Eosinophils 0.2 K/uL (0-0.5); Absolute Lymphocytes (CBC) 0.8 K/uL (0.7-4.9); Absolute Monocytes 0.5 K/uL (0.1-1.3); Basophils % 0.8 % (0-1.3); Eosinophils % 4.2 % (0-4.4); Hematocrit 42.2 % (36.0-45.0); Hemoglobin 13.8 g/dL (12.0-15.0); Lymphocytes % 14.4 % (15.3-44.8); MCH 31.3 pg (27.0-35.0); MCHC 32.8 g/dL (32.0-36.0); MCV 95.3 fL (80-100); Monocytes % 9.5 % (3.3-12.3); Neutrophils % 71.1 % (41.7-73.7); PT Prothrombin Time 11.2 SECONDS (9.4-12.5); Platelets 214 thou/uL (152-406); RBC Red Blood Cell Count 4.42 M/uL (3.86-4.86); Red Cell Distribution Width 14.2 % (12.1-15.2)
[2024-06-04 12:38] LABS: ALT/SGPT 17 U/L (13-56); AST/SGOT 13 U/L (15-37); Albumin 3.6 g/dL (3.4-5.0); Alkaline Phosphatase 98 U/L (45-117); Anion Gap 9.8 mEq/L (5.0-15.0); BUN Blood Urea Nitrogen 34 mg/dL (7-18); Bicarbonate 25 mEq/L (21-32); Bilirubin Total 0.5 mg/dL (0.2-1.0); Globulin 3.6 g/dL (2.3-3.5); Glomerular Filtration Rate 53 ml/min (=/>90); Glucose Level 93 mg/dL (74-106); Magnesium 2.4 mg/dL (1.6-2.4); NT PRO-BNP 218 pg/mL (<450); Potassium 3.8 mEq/L (3.5-5.1); Protein, Total 7.2 g/dL (6.4-8.2); Sodium Level 137 mEq/L (136-145); Troponin High Sensitivity 7.8 pg/mL (<58.9)
[2024-06-04 12:54] LABS: Bilirubin Direct < 0.2 mg/dL (0-0.2); Bilirubin Indirect, Calculated 0.3 mg/dL (0.2-0.8)
--- NOTE | 2024-06-04 13:06 | ER ---
Nurse's Notes [facility] Name: Jackie Cavanaugh Age: 84 yrs Sex: Female : 1940 Arrival Date: 06/04/2024 Time: 10:47 Bed 17 Private MD: Diagnosis: Bradycardia, unspecified Presentation: 06/04 10:55 Chief complaint: concerned about home BP readings 90s/40s x 2 days. Coronavirus hb screen: At this time, the client does not indicate any symptoms associated with coronavirus-19. Ebola Screen: No symptoms or risks identified at this time. Initial Sepsis Screen: Does the patient meet any 2 criteria? No. Patient's initial sepsis screen is negative. Does the patient have a suspected source of infection? No. Patient's initial sepsis screen is negative. Risk Assessment: Do you want to hurt yourself or someone else? Patient reports no desire to harm self or others. Onset of symptoms was June 03, 2024. 10:55 Method Of Arrival: Ambulatory hb 10:55 Acuity: ALEXUS 3 hb Historical: - Allergies: 10:57 Latex; ld1 10:57 PENICILLINS; ld1 - Home Meds: 11:05 alendronate 70 mg oral tablet every week [Active]; carvedilol 6.25 mg oral tablet 2 hb times per day [Active]; Entresto 49-51 mg oral tablet 2 times per day [Active]; Farxiga 10 mg oral tablet daily [Active]; spironolactone 25 mg Oral tablet daily [Active]; furosemide 20 mg Oral tablet daily [Active]; donepezil 23 mg oral tablet daily [Active]; simvastatin 10 mg Oral tablet daily [Active]; Centrum Silver Women oral daily [Active]; Qunol [place] CoQ10 100 mg oral capsule daily [Active]; Probiotic oral daily [Active]; glucosamine msm daily [Active]; [place] 3-6-9 (with lipase) oral daily [Active]; docusate sodium 250 mg Oral capsule daily [Active]; Vitamin D3 oral daily [Active]; - PMHx: 10:57 Hypertensive disorder; ld1 - PSHx: 10:57 Appendectomy; Spinal Cord Stimulator; port-a-cath removed; Cholecystectomy; bilateral ld1 breast mastectomy; Tonsillectomy; - Immunization history:: Adult Immunizations up to date. - Infectious Disease History:: Denies. - Social history:: Smoking status: Patient denies any tobacco usage or history of. Screenin:02 [facility] ED Fall Risk Assessment (Adult) History of falling in the last 3 months, ld1 including since admission No falls in past 3 months (0 pts) Confusion or Disorientation No (0 pts) Intoxicated or Sedated No (0 pts) Impaired Gait No (0 pts) Mobility Assist Device Used No (0 pt) Altered Elimination No (0 pt) Score/Fall Risk Level 0 - 2 = Low Risk Oriented to surroundings, Maintained a safe environment, Educated pt \T\ family on fall prevention, incl call for assistance when getting out of bed, Assessed \T\ reinforced patient's understanding of fall precautions, Provided non-skid footwear, Hourly rounding (assess needs \T\ fall precautionary measures) done, Used ambulatory aids as needed (educated on \T\ assisted with), Used gait belt as appropriate. Abuse screen: Denies threats or abuse. Denies injuries from another. Nutritional screening: No deficits noted. Tuberculosis screening: No symptoms or risk factors identified. Assessment: 11:02 General: Appears in no apparent distress. comfortable, Behavior is calm, cooperative, ld1 appropriate for age. Pain: Denies pain. Neuro: Level of Consciousness is awake, alert, obeys commands, Oriented to person, place, time, situation, Appropriate for age. Cardiovascular: Capillary refill < 3 seconds Patient's skin is warm and dry. Respiratory: Airway is patent Respiratory effort is even, unlabored. GI: Abdomen is flat, non-distended. : No signs and/or symptoms were reported regarding the genitourinary system. EENT: No signs and/or symptoms were reported regarding the EENT system. Derm: No signs and/or symptoms reported regarding the dermatologic system. Musculoskeletal: No signs and/or symptoms reported regarding the musculoskeletal system. 12:18 Reassessment: Patient appears in no apparent distress at this time. No changes from ld1 previously documented assessment. Patient and/or family updated on plan of care and expected duration. Pain level reassessed. Patient is alert, oriented x 3, equal unlabored respirations, skin warm/dry/pink. 13:02 Reassessment: Patient appears in no apparent distress at this time. No changes from kc6 previously documented assessment. Patient and/or family updated on plan of care and expected duration. Pain level reassessed. Patient is alert, oriented x 3, equal unlabored respirations, skin warm/dry/pink. Vital Signs: 10:55 BP 143 / 64; Pulse 59; Resp 18; Temp 97.7(TE); Pulse Ox 100% on R/A; Pain 0/10; hb 11:02 BP 143 / 64; Pulse 49; Resp 22; Pulse Ox 98% on R/A; ld1 12:18 BP 144 / 59; Pulse 52; Resp 18; Pulse Ox 100% on R/A; ld1 13:02 BP 128 / 54; Pulse 55; Resp 16 S; Pulse Ox 99% on R/A; kc6 10:55 Pain Scale: Adult hb ED Course: 10:51 Patient arrived in ED. im 10:51 Fanny Panda PA-C is PHCP. sb4 10:51 Gary Santos MD is Attending Physician. sb4 10:56 Skylar Engel, RN is Primary Nurse. ld1 11:02 Patient has correct armband on for positive identification. Placed in gown. Bed in low ld1 position. Call light in reach. Side rails up X2. school bus monitor on. Pulse ox on. NIBP on. Door closed. Noise minimized. Warm blanket given. 11:02 No provider procedures requiring assistance completed. ld1 11:05 Triage completed. hb 11:19 EKG done, by ED staff, reviewed by Fanny Panda PA-C. em1 11:42 XRAY Chest (1 view) In Process Unspecified. EDMS 12:18 Inserted saline lock: 22 gauge in right antecubital area, using aseptic technique. ld1 Blood collected. Flushed with 10 mL NS. 12:45 Report received from Skylar Engel RN. kc6 12:45 Arm band placed on. kc6 12:50 Assisted to bathroom. kc6 13:14 IV discontinued, intact, bleeding controlled, No redness/swelling at site. Pressure kc6 dressing applied. Administered Medications: No medications were administered Medication: 13:14 VIS not applicable for this client. kc6 Outcome: 13:05 Discharge ordered by . sb4 13:14 Discharged to home ambulatory, with significant other, kc6 13:14 Condition: good 13:14 Discharge instructions given to patient, significant other, Instructed on discharge instructions, follow up and referral plans. Demonstrated understanding of instructions, follow-up care, 13:14 Patient left the ED. kc6 Signatures: Dispatcher [employer] Nick Alva em1 Peg Gutierres, RN RN Skylar Engel RN RN ld1 Bia Pleitez RN RN kc6 Fanny Panda, PA-C PA-C sb4 Bisi Lewis
--- NOTE | 2024-06-04 13:06 | EDPHYS ---
Physician Documentation [facility] Name: Jackie Cavanaugh Age: 84 yrs Sex: Female : 1940 Arrival Date: 06/04/2024 Time: 10:47 Bed 17 Private MD: ED Physician Gary Santos HPI: 06/04 11:54 This 84 yrs old Female presents to ER via Ambulatory with complaints of blood pressure sb4 problem, low heart rate. 11:54 patient presents with concerns of low heart rate, low blood pressure, and generalized sb4 weakness. has been checking her vitals very frequently and has documented blood pressures in the 90s systolics and HRs in the 40s. he states the blood pressure improves throughout the day with exertion. diuretics have been adjusted recently. she denies any chest pain or shortness of breath. Historical: - Allergies: 10:57 Latex; ld1 10:57 PENICILLINS; ld1 - Home Meds: 11:05 alendronate 70 mg oral tablet every week [Active]; carvedilol 6.25 mg oral tablet 2 hb times per day [Active]; Entresto 49-51 mg oral tablet 2 times per day [Active]; Farxiga 10 mg oral tablet daily [Active]; spironolactone 25 mg Oral tablet daily [Active]; furosemide 20 mg Oral tablet daily [Active]; donepezil 23 mg oral tablet daily [Active]; simvastatin 10 mg Oral tablet daily [Active]; Centrum Silver Women oral daily [Active]; Qunol Micah CoQ10 100 mg oral capsule daily [Active]; Probiotic oral daily [Active]; glucosamine msm daily [Active]; [place] 3-6-9 (with lipase) oral daily [Active]; docusate sodium 250 mg Oral capsule daily [Active]; Vitamin D3 oral daily [Active]; - PMHx: 10:57 Hypertensive disorder; ld1 - PSHx: 10:57 Appendectomy; Spinal Cord Stimulator; port-a-cath removed; Cholecystectomy; bilateral ld1 breast mastectomy; Tonsillectomy; - Immunization history:: Adult Immunizations up to date. - Infectious Disease History:: Denies. - Social history:: Smoking status: Patient denies any tobacco usage or history of. ROS: 11:54 Constitutional: Negative for fever, chills, and weight loss, sb4 11:54 Neuro: Positive for weakness, 11:54 All other systems are negative, Exam: 11:54 Constitutional: This is a well developed, well nourished patient who is awake, alert, sb4 and in no acute distress. Head/Face: Normocephalic, atraumatic. Eyes: Extra-ocular motions intact. Periorbital areas with no swelling, redness, or edema. ENT: Mucous membranes moist. Cardiovascular: Regular rate and rhythm with a normal S1 and S2. Respiratory: Lungs have equal breath sounds bilaterally, clear to auscultation and percussion. No rales, rhonchi or wheezes noted. No increased work of breathing, no retractions or nasal flaring. Abdomen/GI: Soft, non-tender, no distension. Skin: Warm, dry with normal turgor. Normal color with no rashes, no lesions, and no evidence of cellulitis. MS/ Extremity: Pulses equal, no cyanosis. Neurovascular intact. Full, normal range of motion. Vital Signs: 10:55 BP 143 / 64; Pulse 59; Resp 18; Temp 97.7(TE); Pulse Ox 100% on R/A; Pain 0/10; hb 11:02 BP 143 / 64; Pulse 49; Resp 22; Pulse Ox 98% on R/A; ld1 12:18 BP 144 / 59; Pulse 52; Resp 18; Pulse Ox 100% on R/A; ld1 13:02 BP 128 / 54; Pulse 55; Resp 16 S; Pulse Ox 99% on R/A; kc6 10:55 Pain Scale: Adult hb MDM: 10:51 Patient medically screened. sb4 12:56 ED course: repeat EKG obtained after spinal stimulator turned off, reveals no acute sb4 abnormality- sinus bradycardia . 13:04 Data reviewed: vital signs, nurses notes, lab test result(s), EKG, radiologic studies, sb4 I have discussed the patient's presentation/case with the attending Emergency Department Physician; and as a result, I will discharge patient. Management of patient was discussed with the following: Surface Water Manager: Dr. Santoro, recommends discontinuing carvedilol . Counseling: I had a detailed discussion with the patient and/or guardian regarding the historical points, exam findings, and any diagnostic results supporting the discharge/admit diagnosis, lab results, radiology results, the need for outpatient follow up, a sizing machine tender, to return to the emergency department if symptoms worsen or persist or if there are any questions or concerns that arise at home. 06/04 11:09 Order name: Basic Metabolic Panel; Complete Time: 12:56 sb4 06/04 11:09 Order name: CBC with Diff; Complete Time: 12:44 sb4 06/04 11:09 Order name: LFT's; Complete Time: 12:56 sb4 06/04 11:09 Order name: Magnesium; Complete Time: 12:56 sb4 06/04 11:09 Order name: NT PRO-BNP; Complete Time: 12:56 sb4 06/04 11:09 Order name: PT-INR; Complete Time: 12:24 sb4 06/04 11:09 Order name: Troponin HS; Complete Time: 12:56 sb4 06/04 11:09 Order name: XRAY Chest (1 view); Complete Time: 11:51 sb4 06/04 11:09 Order name: Cardiac monitoring; Complete Time: 11:17 sb4 06/04 11:09 Order name: EKG - Nurse/Tech; Complete Time: 11:17 sb4 06/04 11:09 Order name: IV Saline Lock; Complete Time: 12:18 sb4 06/04 11:09 Order name: Labs collected and sent; Complete Time: 12:18 sb4 06/04 11:09 Order name: O2 Per Protocol; Complete Time: 11:17 sb4 06/04 11:09 Order name: O2 Sat Monitoring; Complete Time: 11:17 sb4 06/04 12:41 Order name: EKG - Nurse/Tech; Complete Time: 12:56 sb4 EC:13 Rate is 50 beats/min. Rhythm is regular, Sinus bradycardia. MT interval is normal at sb4 132 msec. QRS interval is normal at 76 msec. QT interval is normal at 420 msec. No Q waves. T waves are Normal. No ST changes noted. Clinical impression: Sinus bradycardia. Interpreted by me. Reviewed by me. Administered Medications: No medications were administered Disposition: 06/05 07:41 Co-signature as Attending Physician, Gary Santos MD I reviewed the patient's care rn provided by the Advanced Practice Provider and agree with the diagnosis and treatment plan. Disposition Summary: 06/04/24 13:05 Discharge Ordered Problem: new sb4 Symptoms: have improved sb4 Condition: Stable sb4 Diagnosis - Bradycardia, unspecified sb4 Followup: sb4 - With: Emergency Department - When: As needed - Reason: Worsening of condition Discharge Instructions: - Discharge Summary Sheet sb4 - Bradycardia, Adult sb4 Forms: - Patient Portal Instructions sb4 - Leadership Thank You Letter sb4 Signatures: Dispatcher [employer] EDMS Gary Santos MD MD rn Baxter, Heather, RN RN Skylar Hicks RN RN ld1 Fanny Panda PA-C PADago sb4 Corrections: (The following items were deleted from the chart) 06/04 11:10 11:10 BASIC METABOLIC PANEL+C.LAB.BRZ ordered. EDMS EDMS 11:10 11:10 CBC+H.LAB.BRZ ordered. EDMS EDMS 11:10 11:10 HEPATIC FUNCTION+C.LAB.BRZ ordered. EDMS EDMS 11:10 11:10 MAGNESIUM+C.LAB.BRZ ordered. EDMS EDMS 11:10 11:10 PROBNP+C.LAB.BRZ ordered. EDMS EDMS 11:10 11:10 PROTIME (+INR)+COAG.LAB.BRZ ordered. EDMS EDMS 11:10 11:10 Troponin High Sensitivity+C.LAB.BRZ ordered. EDMS EDMS 11:10 11:10 Chest Single View+RAD.RAD.BRZ ordered. EDMS EDMS
[2024-06-04 13:18] VITALS: TEMP 97.7
[2024-06-04 13:24] VITALS: BP 128/54; O2SAT 99
--- NOTE | 2024-06-05 12:49 | EKG ---
Test Date: 2024-06-04 Test Time: 12:53:25 Supervisor [employer]: SOMMER MEASUREMENT RESULTS: Intervals: Rate: 50 MO: 158 QRSD: 90 QT: 442 QTc: 402 [place]: P: 58 MO: 158 QRS: 9 T: 31 INTERPRETIVE STATEMENTS: Sinus bradycardia Nonspecific ST and T wave abnormality Abnormal ECG Compared to ECG 06/04/2024 11:10:51 ST (T wave) deviation now present Left ventricular hypertrophy no longer present Early repolarization no longer present Electronically Signed On 06-05-24 12:47:04 CDT by Abdulaziz Holland
--- NOTE | 2024-06-06 17:01 | EKG ---
Test Date: 2024-06-04 Test Time: 11:10:51 Geriatric Nurse Assistant: FOZIA MEASUREMENT RESULTS: Intervals: Rate: 50 MS: 132 QRSD: 76 QT: 420 QTc: 382 [place]: P: MS: 132 QRS: -10 T: -7 INTERPRETIVE STATEMENTS: Sinus bradycardia Left ventricular hypertrophy with repolarization abnormality Abnormal ECG Compared to ECG 12/15/2022 13:35:42 Left ventricular hypertrophy now present Early repolarization now present T-wave abnormality no longer present Electronically Signed On 06-06-24 16:55:38 CDT by Abdulaziz Holland
== END 2024-06-04 13:14 | disposition home or self-care (01) ==
LOC: ER 10:47
DX: R00.1 Bradycardia, unspecified (principal); R53.1 Weakness; I10 Essential (primary) hypertension
CPT/HCPCS: 36415; 71045; 80048; 80076; 83735; 83880; 84484; 85025; 85610; 93005; 99284

== ENCOUNTER 2025-01-20 08:08 | Inpatient (IN) | payer OTHER ==
[2025-01-20] MEDS ORDERED: FAMOTIDINE 20 MG/2 ML VIAL IV ONE (08:58)
[2025-01-20] MEDS ORDERED: NA CHLORIDE 0.9% 1,000 ML ONE (08:58)
[2025-01-20 09:01] LABS: Absolute Basophils 0.1 K/uL (0-0.5); Absolute Eosinophils 0.1 K/uL (0-0.5); Absolute Lymphocytes (CBC) 0.9 K/uL (0.7-4.9); Absolute Monocytes 0.6 K/uL (0.1-1.3); Absolute Neutrophil 7.6 K/uL (1.8-8.0); Basophils % 0.6 % (0-1.3); Eosinophils % 0.8 % (0-4.4); Hematocrit 43.5 % (36.0-45.0); Hemoglobin 14.9 g/dL (12.0-15.0); Lymphocytes % 9.4 % (15.3-44.8); MCH 32.8 pg (27.0-35.0); MCHC 34.2 g/dL (32.0-36.0); MCV 95.9 fL (80-100); MPV 7.7 fL (7.6-11.3); Neutrophils % 82.2 % (41.7-73.7); Platelets 217 thou/uL (152-406); RBC Red Blood Cell Count 4.53 M/uL (3.86-4.86); Red Cell Distribution Width 13.3 % (12.1-15.2)
[2025-01-20 09:10] LABS: PT Prothrombin Time 10.5 SECONDS (10-13.0); Protime INR 0.92
--- NOTE | 2025-01-20 09:15 | ER ---
Nurse's Notes [facility] Name: Jackie Cavanaugh Age: 84 yrs Sex: Female : 1940 Arrival Date: 01/20/2025 Time: 08:08 Bed 16 Private MD: Diagnosis: Paroxysmal atrial fibrillation-with rvr;Chest pain, unspecified Presentation: 01/20 08:07 Chief complaint: EMS states: PT PICKED UP FROM HOME, WOKE UP "GAGGING", COMPLAINS OF db CHEST PALPITATIONS, HEAVY CHEST SOB INCREASED. FELT LIKE "FLUTTERY". Coronavirus screen: Client denies travel out of the [place] in the last 14 days. At this time, the client does not indicate any symptoms associated with coronavirus-19. Ebola Screen: Patient negative for fever greater than or equal to 101.5 degrees Fahrenheit, and additional compatible Ebola Virus Disease symptoms Patient denies exposure to infectious person. Patient denies travel to an Ebola-affected area in the 21 days before illness onset. No symptoms or risks identified at this time. Initial Sepsis Screen: Does the patient meet any 2 criteria? No. Patient's initial sepsis screen is negative. Does the patient have a suspected source of infection? No. Patient's initial sepsis screen is negative. Risk Assessment: Do you want to hurt yourself or someone else? Patient reports no desire to harm self or others. Onset of symptoms was January 20, 2025. Care prior to arrival: IV initiated. 22 GA, in the right wrist. 08:07 Method Of Arrival: EMS: [facility] db 08:07 Acuity: ALEXUS 2 db Triage Assessment: 08:19 General: Appears in no apparent distress. comfortable, Behavior is calm, cooperative. db Pain: Denies pain. Neuro: Level of Consciousness is awake, alert, obeys commands, Oriented to person, place, time, situation. Cardiovascular: Reports palpitations, shortness of breath, Capillary refill < 3 seconds Patient's skin is warm and dry. Respiratory: Reports shortness of breath Airway is patent Respiratory effort is even, unlabored, Respiratory pattern is regular, symmetrical. Historical: - Allergies: 08:19 PENICILLINS; db - PMHx: 08:19 Hypertensive disorder; db - PSHx: 08:19 Appendectomy; Cholecystectomy; Spinal Cord Stimulator; port-a-cath removed; bilateral db breast mastectomy; Tonsillectomy; - Immunization history:: Adult Immunizations unknown. - Infectious Disease History:: Denies. - Social history:: Smoking status: Patient denies any tobacco usage or history of. - Family history:: not pertinent. - Hospitalizations: : No recent hospitalization is reported. Screenin:21 [facility] ED Fall Risk Assessment (Adult) History of falling in the last 3 months, db including since admission No falls in past 3 months (0 pts) Confusion or Disorientation No (0 pts) Intoxicated or Sedated No (0 pts) Impaired Gait Yes (1 pt) Mobility Assist Device Used Yes (1 pt) Altered Elimination No (0 pt) Score/Fall Risk Level 0 - 2 = Low Risk Oriented to surroundings, Maintained a safe environment. Abuse screen: Denies threats or abuse. Denies injuries from another. Nutritional screening: No deficits noted. Tuberculosis screening: No symptoms or risk factors identified. Assessment: 08:21 Reassessment: SEE TRIAGE FOR INITIAL ASSESSMENT. db 09:57 Reassessment: Patient appears in no apparent distress at this time. Patient and/or db family updated on plan of care and expected duration. Pain level reassessed. Patient is alert, oriented x 3, equal unlabored respirations, skin warm/dry/pink. FAMILY IS AT PATIENT BEDSIDE. General: Appears in no apparent distress. comfortable, Behavior is calm, cooperative. Neuro: Level of Consciousness is awake, alert, obeys commands, Oriented to person, place, time, situation. 11:53 Reassessment: Patient appears in no apparent distress at this time. Patient and/or db family updated on plan of care and expected duration. Pain level reassessed. Patient is alert, oriented x 3, equal unlabored respirations, skin warm/dry/pink. Vital Signs: 08:07 BP 125 / 74; Pulse 108; Resp 30; Temp 97.7; Pulse Ox 97% on R/A; Weight 64.86 kg; db Height 5 ft. 3 in. ; 08:30 BP 116 / 63; Pulse 108; Resp 27; Pulse Ox 94% ; db 09:00 BP 109 / 58; Pulse 99; Resp 23; Pulse Ox 98% ; db 09:30 BP 109 / 64; Pulse 100; Resp 22; Pulse Ox 98% on 2 lpm NC; db 09:47 BP 111 / 72; Pulse 92; Resp 23; Pulse Ox 97% on 2 lpm NC; db 10:00 BP 99 / 67; Pulse 71; Resp 20; Pulse Ox 98% on 2 lpm NC; db 11:02 BP 104 / 72; Pulse 81; Resp 20; Pulse Ox 96% ; db 08:07 Body Mass Index 25.33 (64.86 kg, 160.02 cm) db ED Course: 08:14 Patient arrived in ED. ton 08:15 Brian Richards MD is Attending Physician. ton 08:15 Chiquis Godwin, ANA MARIA is Primary Nurse. db 08:16 EKG done, by ED staff, reviewed by Brian Richards MD. mb9 08:19 Triage completed. db 08:19 Arm band placed on Patient placed in an exam room. db 08:21 Patient has correct armband on for positive identification. Bed in low position. Call db light in reach. Side rails up X 1. Client placed on continuous cardiac and pulse oximetry monitoring. NIBP monitoring applied. potline monitor on. Pulse ox on. NIBP on. Warm blanket given. 08:22 Maintain EMS IV. Dressing intact. Good blood return noted. Site clean \\T\\ dry. Gauge \\T\\ db site: 22 G R WRIST. 08:40 Initial lab(s) drawn, by me, sent to lab. Inserted saline lock: 20 gauge in left db antecubital area, using aseptic technique. Blood collected. Flushed with 10 mL NS. Oxygen administration via nasal cannula \\T\\ 2L/min. 09:13 XRAY Chest (1 view) In Process Unspecified. EDMS 09:14 Mc Etienne MD is Hospitalizing Provider. [facility] 11:53 No provider procedures requiring assistance completed. Patient admitted, IV remains in db place. 11:53 Provided Education on: ADMISSION. db Administered Medications: 09:05 Drug: NS 0.9% IV 1000 ml IV at 125 ml/hr once Route: IV; Rate: 125 ml/hr; Site: left db antecubital; 10:44 Follow up: Response: No adverse reaction; IV Status: Infusion continued upon admission db 09:05 Drug: Famotidine IVP 20 mg IVP once; dilute with 10 mL 0.9% NaCl; give over 2 minutes db Route: IVP; Site: left antecubital; 11:54 Follow up: Response: No adverse reaction db 09:35 Drug: Metoprolol PO 50 mg PO once Route: PO; db 11:55 Follow up: Response: No adverse reaction db 09:35 Drug: Enoxaparin Sub-Q 1 mg/kg Sub-Q once Route: Sub-Q; Site: left lower abdomen; db 11:54 Follow up: Response: No adverse reaction db 09:40 Drug: Metoprolol IVP 5 mg IVP once; Hold for SBP <100 or HR <60. Route: IVP; Site: left db antecubital; 11:54 Follow up: Response: No adverse reaction db 10:44 Not Given (bp 99 systolic): metoprolol5 mg IVP once; Hold for SBP <100 or HR <60. db Medication: 08:22 VIS not applicable for this client. db Outcome: 09:15 Decision to Hospitalize by Provider. ton 11:52 Patient left the ED. iw 11:53 Admitted to Med/surg accompanied by tech, room 222, db 11:53 Condition: stable 11:53 Instructed on the need for admit, Signatures: Dispatcher [employer] EDBrian Manjarrez MD MD cha Williams, Irene, Chiquis Santos RN RN RN Kay Hutchins RN RN mb9 Corrections: (The following items were deleted from the chart) 08:21 08:07 BP 125 / 74; Pulse 108bpm; Resp 30bpm; Pulse Ox 97%; Temp 97.7F; 64.86 kg; Height db 5 ft. 3 in.; BMI: 25.3; db
--- NOTE | 2025-01-20 09:15 | EDPHYS ---
Physician Documentation [facility] Name: Jackie Cavanaugh Age: 84 yrs Sex: Female : 1940 Arrival Date: 01/20/2025 Time: 08:08 Bed 16 Private MD: ED Physician Brian Richards HPI: 01/20 09:08 This 84 yrs old Female presents to ER via EMS with complaints of ton Palpitations, Chest Pressure. 09:08 The patient presents with a history of irregular heart beat, heart racing. Context: The ton symptoms occur at rest. Onset: The symptoms/episode began/occurred 1 day(s) ago. Duration: The patient or guardian reports a single episode, that is still ongoing. Modifying factors: The symptoms are aggravated by anxiety, The symptoms are alleviated by nothing. Associated signs and symptoms: Pertinent positives: chest pain, nausea, near-syncope. Severity of symptoms: At their worst the symptoms were moderate in the emergency department the symptoms are unchanged. The patient has not experienced similar symptoms in the past. Historical: - Allergies: 08:19 PENICILLINS; db - PMHx: 08:19 Hypertensive disorder; db - PSHx: 08:19 Appendectomy; Cholecystectomy; Spinal Cord Stimulator; port-a-cath removed; bilateral db breast mastectomy; Tonsillectomy; - Immunization history:: Adult Immunizations unknown. - Infectious Disease History:: Denies. - Social history:: Smoking status: Patient denies any tobacco usage or history of. - Family history:: not pertinent. - Hospitalizations: : No recent hospitalization is reported. ROS: 09:11 Constitutional: Negative for fever, chills, and weight loss, Eyes: Negative for injury, ton pain, redness, and discharge, ENT: Negative for injury, pain, and discharge, Neck: Negative for injury, pain, and swelling, Abdomen/GI: Negative for abdominal pain, nausea, vomiting, diarrhea, and constipation, Back: Negative for injury and pain, : Negative for injury, bleeding, discharge, and swelling, MS/Extremity: Negative for injury and deformity, Skin: Negative for injury, rash, and discoloration, Neuro: Negative for headache, weakness, numbness, tingling, and seizure, Psych: Negative for depression, anxiety, suicide ideation, homicidal ideation, and hallucinations, Allergy/Immunology: Negative for hives, rash, and allergies, Endocrine: Negative for neck swelling, polydipsia, polyuria, polyphagia, and marked weight changes, Hematologic/Lymphatic: Negative for swollen nodes, abnormal bleeding, and unusual bruising, 09:11 Cardiovascular: Positive for chest pain, palpitations, :11 Respiratory: Positive for cough, shortness of breath, at rest. Exam: :11 Constitutional: This is a well developed, well nourished patient who is awake, alert, ton and in no acute distress. Head/Face: Normocephalic, atraumatic. Eyes: Pupils equal round and reactive to light, extra-ocular motions intact. Lids and lashes normal. Conjunctiva and sclera are non-icteric and not injected. Cornea within normal limits. Periorbital areas with no swelling, redness, or edema. ENT: Nares patent. No nasal discharge, no septal abnormalities noted. Tympanic membranes are normal and external auditory canals are clear. Oropharynx with no redness, swelling, or masses, exudates, or evidence of obstruction, uvula midline. Mucous membranes moist. Neck: Trachea midline, no thyromegaly or masses palpated, and no cervical lymphadenopathy. Supple, full range of motion without nuchal rigidity, or vertebral point tenderness. No Meningismus. Chest/axilla: Normal chest wall appearance and motion. Nontender with no deformity. No lesions are appreciated. Respiratory: Lungs have equal breath sounds bilaterally, clear to auscultation and percussion. No rales, rhonchi or wheezes noted. No increased work of breathing, no retractions or nasal flaring. Abdomen/GI: Soft, non-tender, with normal bowel sounds. No distension or tympany. No guarding or rebound. No evidence of tenderness throughout. Back: No spinal tenderness. No costovertebral tenderness. Full range of motion. Female : Normal external genitalia. Skin: Warm, dry with normal turgor. Normal color with no rashes, no lesions, and no evidence of cellulitis. MS/ Extremity: Pulses equal, no cyanosis. Neurovascular intact. Full, normal range of motion., bilateral aka Neuro: Awake and alert, GCS 15, oriented to person, place, time, and situation. Cranial nerves II-XII grossly intact. Motor strength 5/5 in all extremities. Sensory grossly intact. Cerebellar exam normal. Normal gait. Psych: Awake, alert, with orientation to person, place and time. Behavior, mood, and affect are within normal limits. 09:11 Cardiovascular: Rate: tachycardic, actual rate is 127 bpm, Rhythm: irregularly irregular, Pulses: Pulses are 4+ in bilateral radial, brachial, femoral, popliteal, posterior tibial and and dorsalis pedis arteries.. Heart sounds: normal, Edema: is not appreciated, JVD: is not appreciated, 09:11 ECG was reviewed by the Attending Physician. 09:11 Musculoskeletal/extremity: ROM: full active range of motion, full passive range of motion, Circulation is intact in all extremities. Sensation intact. Compartment Syndrome exam of affected extremity: is normal. Weight bearing: able to fully bear weight, DVT Exam: No signs of deep vein thrombosis. no pain, no swelling, no tenderness, negative Homans' sign noted on exam, no appreciated bluish discoloration, no erythema, no increased warmth, Vital Signs: 08:07 BP 125 / 74; Pulse 108; Resp 30; Temp 97.7; Pulse Ox 97% on R/A; Weight 64.86 kg; db Height 5 ft. 3 in. ; 08:30 BP 116 / 63; Pulse 108; Resp 27; Pulse Ox 94% ; db 09:00 BP 109 / 58; Pulse 99; Resp 23; Pulse Ox 98% ; db 09:30 BP 109 / 64; Pulse 100; Resp 22; Pulse Ox 98% on 2 lpm NC; db 09:47 BP 111 / 72; Pulse 92; Resp 23; Pulse Ox 97% on 2 lpm NC; db 10:00 BP 99 / 67; Pulse 71; Resp 20; Pulse Ox 98% on 2 lpm NC; db 11:02 BP 104 / 72; Pulse 81; Resp 20; Pulse Ox 96% ; db 08:07 Body Mass Index 25.33 (64.86 kg, 160.02 cm) db MDM: 08:14 Medical Screening Exam initiated ton 08:15 Medical Screening Exam initiated ton 09:12 MARKOS Risk Score: 1 - Patient's age is greater or equal to 65, 1 - 3 or more CAD risk ton factors, [Family HX] [HTN] [Elevated Cholesterol] 1 - Known CAD, 1 - ASA use in past 7 days, 1 - Recent [<24 hrs] Severe Angina, Total Score = 5. Differential diagnosis: arrythmia, dehydration, stress disorder. Data reviewed: vital signs, nurses notes, EMS record, lab test result(s), EKG, radiologic studies, plain films. Consideration of Admission/Observation Patient was admitted/placed on observation. Escalation of care including admission/observation considered. I considered the following discharge prescriptions or medication management in the emergency department Medications were administered in the Emergency Department. See MAR. Independent interpretation of the following test(s) in the Emergency Department EKG: See my EKG interpretation above. Historians other than the Patient: EMS: ems and well informed. 01/20 08:21 Order name: Basic Metabolic Panel; Complete Time: 09:45 ton 01/20 08:21 Order name: CBC with Diff; Complete Time: 09:13 ton 01/20 08:21 Order name: LFT's; Complete Time: 09:45 ton 01/20 08:21 Order name: Magnesium; Complete Time: 09:45 ton 01/20 08:21 Order name: NT PRO-BNP; Complete Time: 09:45 ton 01/20 08:21 Order name: PT-INR; Complete Time: 09:13 ton 01/20 08:21 Order name: Troponin HS; Complete Time: 09:45 ton 01/20 08:21 Order name: Lipase; Complete Time: 09:45 ton 01/20 08:21 Order name: UA Rfx Chavo Cult if indicated ton 01/20 08:21 Order name: TSH; Complete Time: 09:45 ton 01/20 08:21 Order name: COVID-19 Ag + Flu A+B Ag; Complete Time: 09:45 ton 01/20 10:26 Order name: Basic Metabolic Panel EDMS 01/20 10:26 Order name: Basic Metabolic Panel EDMS 01/20 10:26 Order name: Basic Metabolic Panel EDMS 01/20 10:26 Order name: CBC with Automated Diff EDMS 01/20 10:26 Order name: CBC with Automated Diff EDMS 01/20 10:26 Order name: CBC with Automated Diff EDMS 01/20 10:26 Order name: Magnesium EDMS 01/20 10:26 Order name: Magnesium EDMS 01/20 10:26 Order name: Magnesium EDMS 01/20 10:27 Order name: Troponin High Sensitivity EDMS 01/20 10:27 Order name: Troponin High Sensitivity EDMS 01/20 10:27 Order name: Troponin High Sensitivity [facility] 01/20 08:21 Order name: XRAY Chest (1 view); Complete Time: 09:45 [facility] 01/20 10:26 Order name: Echo with Doppler [facility] 01/20 08:21 Order name: Cardiac monitoring; Complete Time: 08:23 [facility] 01/20 08:21 Order name: EKG - Nurse/Tech; Complete Time: 08:23 [facility] 01/20 08:21 Order name: IV Saline Lock; Complete Time: 08:23 [facility] 01/20 08:21 Order name: Labs collected and sent; Complete Time: 09:15 [facility] 01/20 08:21 Order name: O2 Per Protocol; Complete Time: 09:15 [facility] 01/20 08:21 Order name: O2 Sat Monitoring; Complete Time: :15 [facility] EC:11 Rate is 122 beats/min. Rhythm is irregularly irregular. QRS [place] is Normal. ME interval ton is normal. QRS interval is normal. QT interval is normal. No Q waves. T waves are Normal. No ST changes noted. Clinical impression: Atrial Fibrillation and No evidence of ischemia. Interpreted by me. Reviewed by me. Administered Medications: 09:05 Drug: NS 0.9% IV 1000 ml IV at 125 ml/hr once Route: IV; Rate: 125 ml/hr; Site: left db antecubital; 10:44 Follow up: Response: No adverse reaction; IV Status: Infusion continued upon admission db 09:05 Drug: Famotidine IVP 20 mg IVP once; dilute with 10 mL 0.9% NaCl; give over 2 minutes db Route: IVP; Site: left antecubital; 11:54 Follow up: Response: No adverse reaction db 09:35 Drug: Metoprolol PO 50 mg PO once Route: PO; db 11:55 Follow up: Response: No adverse reaction db 09:35 Drug: Enoxaparin Sub-Q 1 mg/kg Sub-Q once Route: Sub-Q; Site: left lower abdomen; db 11:54 Follow up: Response: No adverse reaction db 09:40 Drug: Metoprolol IVP 5 mg IVP once; Hold for SBP <100 or HR <60. Route: IVP; Site: left db antecubital; 11:54 Follow up: Response: No adverse reaction db 10:44 Not Given (bp 99 systolic): metoprolol5 mg IVP once; Hold for SBP <100 or HR <60. db Disposition Summary: 01/20/25 09:15 Hospitalization Ordered Notes: Hospitalization Status: Inpatient Admission ton Provider: Mc Etienne cha Location: Telemetry/MedSurg (Inpatient) ton Condition: Fair ton Problem: new ton Symptoms: have improved ton Bed/Room Type: Standard [facility] Room Assignment: 229(01/20/25 10:38) em1 Diagnosis - Paroxysmal atrial fibrillation - with rvr ton - Chest pain, unspecified ton Forms: - Medication Reconciliation Form ton - SBAR form ton - Leadership Thank You Letter ton Signatures: Dispatcher [employer] EDMS Brian Richards MD MD cha Martinez, Eric em1 Chiquis Godwin RN RN db Corrections: (The following items were deleted from the chart) 08:22 08:22 BASIC METABOLIC PANEL+C.LAB.BRZ ordered. EDMS EDMS 08:22 08:22 CBC+H.LAB.BRZ ordered. EDMS EDMS 08:22 08:22 HEPATIC FUNCTION+C.LAB.BRZ ordered. EDMS EDMS 08:22 08:22 MAGNESIUM+C.LAB.BRZ ordered. EDMS EDMS 08:22 08:22 PROBNP+C.LAB.BRZ ordered. EDMS EDMS 08:22 08:22 PROTIME (+INR)+COAG.LAB.BRZ ordered. EDMS EDMS 08:22 08:22 Troponin High Sensitivity+C.LAB.BRZ ordered. EDMS EDMS 08:22 08:22 LIPASE+C.LAB.BRZ ordered. EDMS EDMS 08:22 08:22 UA Rfx Chavo Cult if indicated+U.LAB.BRZ ordered. EDMS EDMS 08:22 08:22 THYROID STIMULAT HORMONE+C.LAB.BRZ ordered. EDMS EDMS 08:22 08:22 COVID-19 Ag + Flu A+B Ag+I.LAB.BRZ ordered. EDMS EDMS 08:22 08:22 Chest Single View+RAD.RAD.BRZ ordered. EDMS EDMS 10:38 09:15 ton em1
--- NOTE | 2025-01-20 09:27 | RAD REPORT ---
EXAMINATION: ONE VIEW CHEST XR CLINICAL INDICATION: Female, 84 years old.,COUGH TECHNIQUE: Frontal chest projection is submitted. Examination is limited by patient positioning and t echnique. COMPARISON: 07/06/2024 FINDINGS: The lungs are well inflated with mild central predominant interstitial opacities. No focal consolidat ion. No pneumothorax or sizable effusion. The heart is normal in size. Mediastinal contours are unremarkable. Spinal stimulator electrodes in place. IMPRESSION: Mild central predominant interstitial thickening, may reflect mild central congestion or early edema. No focal consolidation.
[2025-01-20 09:29] LABS: Albumin 3.6 g/dL (3.4-5.0); Albumin/Globulin Ratio 1.2 (1.1-1.8); Anion Gap 11.7 mEq/L (5.0-15.0); Bilirubin Direct 0.2 mg/dL (0-0.2); Bilirubin Indirect, Calculated 0.5 mg/dL (0.2-0.8); Bilirubin Total 0.7 mg/dL (0.2-1.0); Globulin 3.1 g/dL (2.3-3.5); Magnesium 2.5 mg/dL (1.6-2.4); Potassium 3.7 mEq/L (3.5-5.1); Protein, Total 6.7 g/dL (6.4-8.2); Thyroid Stimulating Hormone 2.01 uIU/mL (0.358-3.740); Troponin High Sensitivity 20.6 pg/mL (<58.9)
[2025-01-20] MEDS ORDERED: METOPROLOL TAR 50 MG TAB ONE (09:32)
[2025-01-20] MEDS ORDERED: METOPROLOL TARTRATE 5 MG/5 ML INJ IV ONE (09:32)
[2025-01-20] MEDS ORDERED: ENOXAPARIN 60 MG/0.6 ML SQ ONE (09:32)
[2025-01-20 09:37] LABS: Influenza A Ag Negative; Influenza B Ag Negative; SARS-CoV-2 Antigen Rapid Res Negative (Negative)
[2025-01-20] MEDS ORDERED: ACETAMINOPHEN 325 MG TABLET PO PRN (10:19)
[2025-01-20] MEDS ORDERED: methocarbamoL 500 MG TAB PO PRN (10:19)
--- NOTE | 2025-01-20 10:53 | P.HP ---
Certification for Inpatient Patient admitted to: Observation With expected LOS: <2 Midnights Patient will require the following post-hospital care: None Practitioner: I am a practitioner with admitting privileges, knowledge of patient current condition, hospital course, and medical plan of care. Services: Services provided to patient in accordance with Admission requirements found in Title 42 Section 412.3 of the Code of Federal Regulations Patient History Date of Service: 01/20/25 Reason for admission: New onset A-fib History of Present Illness: 84-year-old female with past history of chronic diastolic congestive heart failure, hypertension, previous history of breast cancer with mastectomy presents the emergency department chief complaint of palpitations, chest pain. She woke this morning with a gagging sensation with some chest heaviness and palpitations. She was evaluated in the emergency department found to be in A-fib with RVR with a rate in the 120s to 140s. The A-fib is new, she did have a ER visit in May 2024 for bradycardia, at that time she was taken off of carvedilol. She was started on prednisone 10 mg daily by her director general about 2 weeks ago for 1 month which may be contributing to her new onset A-fib. She denies frequent caffeine intake. Labs were significant for a BNP of 634 initialized and to be troponin was normal at 20.6 chest x-ray showed mild central predominant interstitial thickening which may reflect mild central congestion or early edema. No focal consolidation. She was treated with p.o. and IV metoprolol, Lovenox and will be admitted to the hospital under observation for new onset A-fib Allergies adhesive tape Allergy (Verified 12/15/22 13:23) Rash/Bubbles Penicillins Allergy (Verified 12/15/22 13:23) Rash Home Medications: Aspirin [Phi Chewable Aspirin] 81 mg PO DAILY 04/12/20 Biotin [Nail-Ex] 5,000 mcg PO DAILY 04/12/20 Cyanocobalamin (Vitamin B-12) [Vitamin B12] 1,000 mcg PO DAILY 04/12/20 Fexofenadine HCl [Maddie Allergy] 180 mg PO DAILY 04/12/20 Fish Oil/Borage/Flax/Om3,6,9 1 [Holliday 3-6-9 1,200 mg Softgel] 1,200 mg PO DAILY 04/12/20 Folic Acid/Vit B Complex and C [Dialyvite 800 Chewable Wafer] 800 mcg PO DAILY 04/12/20 Glucosamine/Chondroitin A/MSM [Xjimpoxcttt-Mldzheiubzr-SKT Tb] 1 tab PO DAILY 04/12/20 L. Acidophilus/L. Rhamnosus [Probiotic 15 Billion Cell Cap] 1 cap PO DAILY 04/12/20 Montelukast [Singulair*] 10 mg PO DAILY 04/12/20 Potassium Cl [Klor-Con 8] 8 meq PO DAILY 04/12/20 Simvastatin 10 mg PO DAILY 04/12/20 Triamterene/Hydrochlorothiazid [Triamterene-Hctz 37.5-25 mg Cp] 1 cap PO DAILY 04/12/20 lisinopriL [Zestril] 20 mg PO DAILY 04/12/20 - Past Medical/Surgical History -: CHF -: Hypertension -: Breast cancer -: Cholecystectomy -: mastectomy -: Appendectomy Psychosocial/ Personal History: Lives at home with her - Social History Alcohol use: No CD- Drugs: No Caffeine use: Yes Place of Residence: Home Review of Systems 10-point ROS is otherwise unremarkable Cardiovascular: Chest Pain, Palpitations Physical Examination - Physical Exam General: Alert, In no apparent distress HEENT: Atraumatic, PERRLA, EOMI Neck: Supple, 2+ carotid pulse no bruit, No LAD Respiratory: Clear to auscultation bilaterally, Normal air movement Cardiovascular: Irregular heart rate/rhythm (A-fib rate in the 80s) Gastrointestinal: Normal bowel sounds, No tenderness Musculoskeletal: No tenderness Integumentary: No rashes Neurological: Normal speech, Normal strength at 5/5 x4 extr - Studies Laboratory Data (last 24 hrs) 01/20/25 01/20/25 01/20/25 08:49 08:49 08:49 WBC 9.30 Hgb 14.9 Hct 43.5 Plt Count 217 PT 10.5 INR 0.92 Sodium 139 Potassium 3.7 BUN 33 H Creatinine 0.92 Glucose 87 Magnesium 2.5 H Total Bilirubin 0.7 AST 13 L ALT 15 Alkaline Phosphatase 99 Lipase 21 Assessment and Plan - Plan Assessment: New onset A-fib with RVR Chronic diastolic congestive heart failure Hypertension Plan: New onset A-fib with RVR Rate controlled so far with oral metoprolol Had an episode of bradycardia last year and was taken off of carvedilol Discussed with cardiology we will hold further doses of oral meds tonight and watch on telemetry Initiate Eliquis Cardiology to follow Chronic diastolic congestive heart failure Home medications continued Does not appear grossly overloaded Hypertension Home medications continued DVT PPX: Eliquis Code status: Full code Discharge Plan: Home Plan to discharge in: 24 Hours - Advance Directives Does patient have a Living Will: No Does patient have a Durable POA for Healthcare: No - Code Status/Comfort Care Code Status Assessed: Yes (Full code) Critical Care: No Time Spent Managing Pts Care (In Minutes): 60
[2025-01-20 11:32] LABS: Specific Gravity 1.019 (1.005-1.030); Sqamous Epithelial <5 /HPF (None Seen); Urine Bacteria None Seen /HPF (<20); Urine Bilirubin NEGATIVE (Negative); Urine Blood Negative (Negative); Urine Clarity Clear (Clear); Urine Color Yellow (Yellow); Urine Culture Reflex Order NOT NEEDED; Urine Glucose 4+ (Over) (Negative); Urine Ketones 1+ (Negative); Urine Microscopic Reflex YN ORDER UMIC; Urine Mucus Slight /HPF (None Seen); Urine Nitrite NEGATIVE (Negative); Urine Protein TRACE (Negative); Urine RBC <5 /HPF (None Seen); Urine Urobilinogen Normal (Normal); Urine WBC <5 /HPF (<5); Urine WBC Clump Rare /HPF (None Seen)
[2025-01-20 14:47] VITALS: BMI 25.3
[2025-01-20] MEDS: SACUBITRIL/VALSARTAN 49/51 MG TAB PO SCH (21:00)
[2025-01-20] MEDS: APIXABAN 5 MG TABLET PO SCH (21:00)
[2025-01-21 05:16] LABS: Absolute Eosinophils 0.1 K/uL (0-0.5); Absolute Lymphocytes (CBC) 1.4 K/uL (0.7-4.9); Absolute Monocytes 0.6 K/uL (0.1-1.3); Absolute Neutrophil 3.6 K/uL (1.8-8.0); Basophils % 0.8 % (0-1.3); Eosinophils % 1.5 % (0-4.4); Hematocrit 40.5 % (36.0-45.0); Hemoglobin 13.7 g/dL (12.0-15.0); Lymphocytes % 24.1 % (15.3-44.8); MCH 32.4 pg (27.0-35.0); MCV 95.5 fL (80-100); MPV 7.8 fL (7.6-11.3); Neutrophils % 62.6 % (41.7-73.7); Nucleated Red Blood Cells % 0.3 % (0-0); Platelets 225 thou/uL (152-406); RBC Red Blood Cell Count 4.24 M/uL (3.86-4.86); Red Cell Distribution Width 13.3 % (12.1-15.2)
[2025-01-21 05:32] LABS: Anion Gap 11.5 mEq/L (5.0-15.0); Magnesium 2.2 mg/dL (1.6-2.4); Potassium 3.5 mEq/L (3.5-5.1)
[2025-01-21] MEDS: POTASSIUM CL SA 10 MEQ TAB PO ONE (08:05)
[2025-01-21] MEDS: FUROSEMIDE 20 MG TABLET PO SCH (08:12)
[2025-01-21] MEDS: SPIRONOLACTONE 25 MG TABLET PO SCH (08:13)
[2025-01-21] MEDS: DONEPEZIL HCL 23 MG PO SCH (09:00)
[2025-01-21] MEDS: Dapagliflozin Propanediol [Farxiga] 10 MG Tablet *PT OWN MED PO SCH (09:00)
--- NOTE | 2025-01-21 09:50 | P.PN ---
Date of Service: 01/21/25 Subjective: No acute events overnight Feels a little short of breath but this seems to be at baseline for her Still in A-fib rate 70s to 90s ROS: 10 point ROS as noted above, otherwise negative Physical exam GEN: Alert, oriented, NAD HEENT: Normal conjunctiva, sclera anicteric CV: Regular rate and rhythm, no edema Pulm: Nonlabored respirations on room air ABD: Soft, nontender, nondistended MSK: No joint tenderness Integumentary: No rashes Neuro: Normal speech, normal affect Vitals reviewed Assessment: New onset A-fib with RVR Chronic diastolic congestive heart failure Hypertension Plan: New onset A-fib with RVR Rate controlled so far with oral metoprolol that she received on 01/20 Had an episode of bradycardia last year and was taken off of carvedilol Discussed with cardiology we will hold further doses of oral meds and watch on telemetry Initiate Eliquis Cardiology to see Chronic diastolic congestive heart failure Home medications continued Does not appear grossly overloaded Hypertension Home medications continued DVT PPX: Eliquis Code status: Full code Discharge Plan: Home Plan to discharge in: 24 Hours Time Spent Managing Pts Care (In Minutes): 35 <Maco Anguiano - Last Filed: 01/21/25 09:50> Patient seen and examined. Plan of care discussed with Maco Anguiano. Plan of care discussed with cardiology Dr. Santoro. Patient seen and evaluated by Dr. Nugent Patient noted to be short of breath at rest. Dr. Santoro recommended sotalol Continue telemetry and monitor for bradycardia. Patient anticoagulated with Eliquis. Echocardiogram is pending. Chest x-ray demonstrates possible pulmonary vascular congestion Trial of IV Lasix for shortness of breath. <yas gamboa - Last Filed: 01/21/25 15:58>
[2025-01-21 11:46] VITALS: O2SAT 99
--- NOTE | 2025-01-21 12:06 | P.CNS ---
Date of Consult: 01/21/25 Chief Complaint: New onset A-fib History of Present Illness: Patient with PMH of diastolic heart failure, dementia, presented with palpitations, found to be in AF RVR, denies chest pain, no SOB, no PULIDO, no syncope. Allergies adhesive tape Allergy (Verified 12/15/22 13:23) Rash/Bubbles Penicillins Allergy (Verified 12/15/22 13:23) Rash Home medications list reviewed: Yes Home Medications: Dapagliflozin Propanediol [Farxiga] 10 mg PO DAILY 01/20/25 Donepezil HCl [Aricept] 23 mg PO DAILY 01/20/25 Furosemide 20 mg PO DAILY 01/20/25 Prednisone [Sterapred Ds] 10 mg PO DAILYPRN PRN 01/20/25 Sacubitril/Valsartan [Entresto 49 mg-51 mg Tablet] 1 each PO BID 01/20/25 Spironolactone 25 mg PO DAILY 01/20/25 methocarbamoL [Methocarbamol] 500 mg PO Q8HP PRN 01/20/25 - Past Medical/Surgical History -: CHF -: Hypertension -: Breast cancer -: Cholecystectomy -: mastectomy -: Appendectomy Psychosocial/ Personal History: Lives at home with her - Social History Alcohol use: No CD- Drugs: No Caffeine use: No Place of Residence: Home Review of Systems 10-point ROS is otherwise unremarkable Physical Examination Temp Pulse Resp BP Pulse Ox 98.2 F 75 96 H 152/78 H 96 01/21/25 08:00 01/21/25 08:13 01/21/25 08:00 01/21/25 08:13 01/21/25 08:00 General: Alert, In no apparent distress HEENT: Atraumatic, PERRLA, Mucous membr. moist/pink, EOMI, Sclerae nonicteric Neck: Supple, 2+ carotid pulse no bruit, No LAD, Without JVD or thyroid abnormality Respiratory: Clear to auscultation bilaterally, Normal air movement Cardiovascular: Normal S1 S2, Irregular heart rate/rhythm Gastrointestinal: Normal bowel sounds, No tenderness Musculoskeletal: No tenderness Integumentary: No rashes Neurological: Normal gait, Normal speech, Normal tone, Normal affect Lymphatics: No axilla or inguinal lymphadenopathy - Problems (1) Atrial fibrillation Current Visit: Yes Status: Acute Plan: patient is currently rate controlled start Sotalol 80 mg po BID Continue Eliquis 5 mg po BID continue to monitor on tele (2) Chronic diastolic heart failure Current Visit: Yes Status: Acute Plan: patient looks euvolemic on exam continue Entresto, Farxiga and Lasix (3) Type 2 RI (myocardial infarction) Current Visit: Yes Status: Acute Plan: patient had coronary angiogram 2022 that shown normal coronaries No chest pain, most likely type 2 RI continue to trend troponin until peak and down trending. Lipitor 40 mg daily
[2025-01-21] MEDS: SOTALOL HCL 80 MG TAB PO SCH (13:39)
[2025-01-21] MEDS: FUROSEMIDE 40 MG/4 ML VIAL IV ONE (16:10)
[2025-01-22 05:44] LABS: Absolute Basophils 0.1 K/uL (0-0.5); Absolute Eosinophils 0.1 K/uL (0-0.5); Absolute Lymphocytes (CBC) 1.4 K/uL (0.7-4.9); Absolute Monocytes 0.6 K/uL (0.1-1.3); Absolute Neutrophil 3.9 K/uL (1.8-8.0); Eosinophils % 2.4 % (0-4.4); Hematocrit 43.5 % (36.0-45.0); Hemoglobin 14.7 g/dL (12.0-15.0); Lymphocytes % 22.9 % (15.3-44.8); MCH 32.1 pg (27.0-35.0); MCHC 33.9 g/dL (32.0-36.0); MCV 94.9 fL (80-100); MPV 7.7 fL (7.6-11.3); Monocytes % 9.6 % (3.3-12.3); Neutrophils % 64.1 % (41.7-73.7); Platelets 266 thou/uL (152-406); RBC Red Blood Cell Count 4.58 M/uL (3.86-4.86); Red Cell Distribution Width 13.4 % (12.1-15.2)
[2025-01-22 06:02] LABS: Anion Gap 10.6 mEq/L (5.0-15.0); Magnesium 2.2 mg/dL (1.6-2.4); Potassium 3.6 mEq/L (3.5-5.1)
[2025-01-22 08:29] VITALS: BP 93/51; TEMP 97.9
--- NOTE | 2025-01-22 08:40 | P.DS ---
Admission Date: 01/21/25 Discharge Date: 01/22/25 Reason for Admission: New onset A-fib Consultations: Dr. Santoro Brief History of Present Illness: 84-year-old female with past history of chronic diastolic congestive heart failure, hypertension, previous history of breast cancer with mastectomy presents the emergency department chief complaint of palpitations, chest pain. She woke this morning with a gagging sensation with some chest heaviness and palpitations. She was evaluated in the emergency department found to be in A-fib with RVR with a rate in the 120s to 140s. The A-fib is new, she did have a ER visit in May 2024 for bradycardia, at that time she was taken off of carvedilol. She was started on prednisone 10 mg daily by her policy writer typist about 2 weeks ago for 1 month which may be contributing to her new onset A-fib. She denies f requent caffeine intake. Labs were significant for a BNP of 634 initialized and to be troponin was normal at 20.6 chest x-ray showed mild central predominant interstitial thickening which may reflect mild central congestion or early edema. No focal consolidation. She was treated with p.o. and IV metoprolol, Lovenox and will be admitted to the hospital under observation for new onset A-fib Hospital Course: Patient was admitted to the hospital for atrial fibrillationnew onset with rapid ventricular response. She was seen by cardiology who recommended initiating sotalol. She was started on sotalol and had her third dose this morning, EKG was performed which showed a QTc of 464. Her A-fib is rate controlled in the 60s to 70s now, she was started on Eliquis as well to reduce her risk of stroke secondary to the atrial fibrillation. Patient stable for discharge and outpatient follow-up with cardiology 1 to 2 weeks. Prescription for sotalol and Eliquis sent to her pharmacy Other home medication should be continued as previously prescribed <Maco Anguiano - Last Filed: 01/22/25 08:38> Admission Date: 01/21/25 Discharge Date: 01/22/25 Hospital Course: Diagnosis New onset A-fib with RVR Chronic diastolic congestive heart failure Hypertension <yas gamboa - Last Filed: 01/22/25 19:08> Disposition: ROUTINE DISCHARGE Discharge Condition: GOOD Vital Signs/Physical Exam: Temp Pulse Resp BP Pulse Ox 97.9 F 64 20 93/51 L 95 01/22/25 08:00 01/22/25 08:00 01/22/25 08:00 01/22/25 08:00 01/22/25 08:00 General: Alert, In no apparent distress, Oriented x3 HEENT: Atraumatic, PERRLA Neck: Supple, JVD not distended Respiratory: Clear to auscultation bilaterally, Normal air movement Cardiovascular: Normal S1 S2, Irregular heart rate/rhythm Gastrointestinal: Normal bowel sounds, No tenderness Musculoskeletal: No tenderness Integumentary: No rashes Neurological: Normal speech, Normal tone, Normal affect Laboratory Data at Discharge: WBC 6.10 thou/uL (4.3-10.9) 01/22/25 05:18 Hgb 14.7 g/dL (12.0-15.0) 01/22/25 05:18 Hct 43.5 % (36.0-45.0) 01/22/25 05:18 Plt Count 266 thou/uL (152-406) 01/22/25 05:18 PT 10.5 SECONDS (10-13.0) 01/20/25 08:49 INR 0.92 01/20/25 08:49 Sodium 137 mEq/L (136-145) 01/22/25 05:18 Potassium 3.6 mEq/L (3.5-5.1) 01/22/25 05:18 BUN 30 mg/dL (7-18) H 01/22/25 05:18 Creatinine 1.04 mg/dL (0.55-1.02) H 01/22/25 05:18 Glucose 99 mg/dL (74-106) 01/22/25 05:18 Magnesium 2.2 mg/dL (1.6-2.4) 01/22/25 05:18 Total Bilirubin 0.7 mg/dL (0.2-1.0) 01/20/25 08:49 AST 13 U/L (15-37) L 01/20/25 08:49 ALT 15 U/L (13-56) 01/20/25 08:49 Alkaline Phosphatase 99 U/L (45-117) 01/20/25 08:49 Lipase 21 U/L (13-75) 01/20/25 08:49 <Maco Anguiano - Last Filed: 01/22/25 08:38> Vital Signs/Physical Exam: Temp Pulse Resp BP Pulse Ox 97.9 F 64 20 93/51 L 95 01/22/25 09:45 01/22/25 09:45 01/22/25 09:45 01/22/25 09:45 01/22/25 09:45 Laboratory Data at Discharge: WBC 6.10 thou/uL (4.3-10.9) 01/22/25 05:18 Hgb 14.7 g/dL (12.0-15.0) 01/22/25 05:18 Hct 43.5 % (36.0-45.0) 01/22/25 05:18 Plt Count 266 thou/uL (152-406) 01/22/25 05:18 PT 10.5 SECONDS (10-13.0) 01/20/25 08:49 INR 0.92 01/20/25 08:49 Sodium 137 mEq/L (136-145) 01/22/25 05:18 Potassium 3.6 mEq/L (3.5-5.1) 01/22/25 05:18 BUN 30 mg/dL (7-18) H 01/22/25 05:18 Creatinine 1.04 mg/dL (0.55-1.02) H 01/22/25 05:18 Glucose 99 mg/dL (74-106) 01/22/25 05:18 Magnesium 2.2 mg/dL (1.6-2.4) 01/22/25 05:18 Total Bilirubin 0.7 mg/dL (0.2-1.0) 01/20/25 08:49 AST 13 U/L (15-37) L 01/20/25 08:49 ALT 15 U/L (13-56) 01/20/25 08:49 Alkaline Phosphatase 99 U/L (45-117) 01/20/25 08:49 Lipase 21 U/L (13-75) 01/20/25 08:49 <yas gamboa - Last Filed: 01/22/25 19:08> Diet: AHA Activity: Ad steve Time spent managing pt's care (in minutes): 51 <Maco Anguiano - Last Filed: 01/22/25 08:38> <yas gamboa - Last Filed: 01/22/25 19:08> Home Medications: Dapagliflozin Propanediol [Farxiga] 10 mg PO DAILY 01/20/25 Donepezil HCl [Aricept] 23 mg PO DAILY 01/20/25 Furosemide 20 mg PO DAILY 01/20/25 Sacubitril/Valsartan [Entresto 49 mg-51 mg Tablet] 1 each PO BID 01/20/25 Spironolactone 25 mg PO DAILY 01/20/25 methocarbamoL [Methocarbamol] 500 mg PO Q8HP PRN 01/20/25 Apixaban [Eliquis] 5 mg PO BID #60 tab 01/22/25 Apixaban [Eliquis] 5 mg PO BID #60 tab 01/22/25 Sotalol HCl [Betapace*] 80 mg PO BID 6AM 6PM #60 tab 01/22/25 New Medications: Sotalol HCl [Betapace*] 80 mg PO BID 6AM 6PM #60 tab Apixaban [Eliquis] 5 mg PO BID #60 tab Apixaban [Eliquis] 5 mg PO BID #60 tab Physician Discharge Instructions: Patient was admitted to the hospital for atrial fibrillationnew onset with rapid ventricular response. She was seen by cardiology who recommended initiating sotalol. She was started on sotalol and had her third dose this morning, EKG was performed which showed a QTc of 464. Her A-fib is rate controlled in the 60s to 70s now, she was started on Eliquis as well to reduce her risk of stroke secondary to the atrial fibrillation. Patient stable for discharge and outpatient follow-up with cardiology 1 to 2 weeks. Prescription for sotalol and Eliquis sent to her pharmacy Other home medication should be continued as previously prescribed Followup: REGINALDO BLAKE NP [Primary Care Provider] - 1-2 Weeks Ricky Santoro MD [ACTIVE - CAN ADMIT] - 1 Week
[2025-01-22] MEDS: POTASSIUM CL SA 10 MEQ TAB PO ONE (08:51)
[2025-01-22] MEDS: Dapagliflozin Propanediol [Farxiga] 10 MG Tablet *PT OWN MED PO SCH (08:54)
[2025-01-22] MEDS: DONEPEZIL HCL 23 MG PO SCH (08:54)
--- NOTE | 2025-01-22 09:45 | P.PN ---
Subjective Date of Service: 01/22/25 Chief Complaint: New onset A-fib Subjective: No new changes, No C/O voiced, Tolerating diet, Ambulating, Improving Review of Systems 10-point ROS is otherwise unremarkable Physical Examination - Vital Signs Temperature: 97.9 F Blood Pressure: 93/51 Pulse: 64 Respirations: 20 Pulse Ox (%): 95 - Physical Exam General: Alert, In no apparent distress HEENT: Atraumatic, PERRLA, EOMI Neck: Supple, JVD not distended Respiratory: Clear to auscultation bilaterally, Normal air movement Cardiovascular: Normal S1 S2, Irregular heart rate/rhythm Gastrointestinal: Normal bowel sounds, No tenderness Musculoskeletal: No tenderness Integumentary: No rashes Neurological: Normal speech, Normal tone, Normal affect Lymphatics: No axilla or inguinal lymphadenopathy - Studies Medications List Reviewed: Yes Assessment And Plan - Current Problems (Diagnosis) (1) Atrial fibrillation Current Visit: Yes Status: Acute Plan: patient is currently rate controlled continue Sotalol 80 mg po BID (QTC is less than 500) Continue Eliquis 5 mg po BID outpatient follow up with cardiology (2) Chronic diastolic heart failure Current Visit: Yes Status: Acute Plan: patient looks euvolemic on exam continue Entresto, Farxiga and Lasix (3) Type 2 UT (myocardial infarction) Current Visit: Yes Status: Acute Plan: patient had coronary angiogram 2022 that shown normal coronaries No chest pain, most likely type 2 UT Troponin down trended Lipitor 40 mg daily
--- NOTE | 2025-01-22 12:02 | EKG ---
Test Date: 2025-01-22 Test Time: 06:20:14 Parasitology Teacher: LYNN MEASUREMENT RESULTS: Intervals: Rate: 62 VA: QRSD: 84 QT: 458 QTc: 464 Standard: P: VA: QRS: -7 T: 3 INTERPRETIVE STATEMENTS: Atrial fibrillation with premature ventricular or aberrantly conducted complexes Abnormal ECG Compared to ECG 06/04/2024 12:53:25 Ventricular premature complex(es) now present Sinus bradycardia no longer present ST (T wave) deviation no longer present Electronically Signed On 01-22-25 12:02:02 CDT by Ricky Santoro
--- NOTE | 2025-01-22 12:10 | EKG ---
Test Date: 2025-01-20 Test Time: 08:13:44 Brand Mgr: MB MEASUREMENT RESULTS: Intervals: Rate: 121 OR: QRSD: 84 QT: 336 QTc: 477 [place]: P: OR: QRS: 32 T: 36 INTERPRETIVE STATEMENTS: Atrial fibrillation with rapid ventricular response Marked ST abnormality, possible inferior subendocardial injury Abnormal ECG Compared to ECG 06/04/2024 12:53:25 Sinus bradycardia no longer present ST (T wave) deviation still present Electronically Signed On 01-22-25 12:07:22 CDT by Ricky Santoro
--- NOTE | 2025-01-22 12:23 | ECHO ---
HEIGHT: 5 ft 3 in WEIGHT: 143 lb 0 oz DATE OF STUDY: 01/22/[address]: Maco Anguiano NP 2-DIMENSIONAL: YES M.MODE: YES DOPPLER: YES COLOR FLOW: YES TDS: YES PORTABLE: YES DEFINITY: BUBBLE STUDY: DIAGNOSIS: NEW ONSET ATRIAL FIBILLATION CARDIAC HISTORY: CATHERIZATION: NO SURGERY: NO PROSTHETIC VALVE: NO PACEMAKER: NO MEASUREMENTS (cm) DIASTOLIC (NORMALS) SYSTOLIC (NORMALS) IVSd 1.1 (0.6-1.2) LA Diam 3.0 (1.9-4.0) LVEF 55-60% LVIDd 3.8 (3.5-5.7) LVIDs 2.7 (2.0-3.5) %FS 30% LVPWd 1.2 (0.6-1.2) Ao Diam 3.0 (2.0-3.7) 2 DIMENSIONAL ASSESSMENT: RIGHT ATRIUM: NORMAL LEFT ATRIUM: MILDLY DILATED RIGHT VENTRICLE: NORMAL LEFT VENTRICLE: NORMAL TRICUSPID VALVE: MILD TRICUSPID REGURGITATION MITRAL VALVE: SEVERE MITRAL ANNULAR CALCIFICATION, TRACE MITRAL REGURGITATION PULMONIC VALVE: NORMAL AORTIC VALVE: NORMAL PERICARDIAL EFFUSION: TRACE AORTIC ROOT: NORMAL LEFT VENTRICULAR WALL MOTION: NORMAL DOPPLER/COLOR FLOW: DIASTOLIC DYSFUNCTION COMMENTS: 1. NORMAL LEFT VENTRICULAR SYSTOLIC FUNCTION, EJECTION FRACTION 55-60%, NORMAL WALL MOTION 2. DIASTOLIC DYSFUNCTION 3. NORMAL FILLING PRESSURE (RIGHT ATRIAL PRESSURE 0-5 mmHg) TECHNOLOGIST: ANNE MARIE ANDERSEN
== END 2025-01-22 09:46 | disposition home or self-care (01) | DRG 281 ==
LOC: ER 08:08 → ERHOLD 10:17 → 2ND 11:50 → OBSVTOIN 01-21 20:23
PROVIDERS: ADMIT Internal Medicine; ATTEND Internal Medicine
DX: I48.0 Paroxysmal atrial fibrillation (principal); I50.32 Chronic diastolic (congestive) heart failure; I21.A1 Myocardial infarction type 2; I11.0 Hypertensive heart disease with heart failure; F03.90 Unspecified dementia, unspecified severity, without behavioral disturbance, psychotic disturbance, mood disturbance, and anxiety; R00.1 Bradycardia, unspecified; Z88.0 Allergy status to penicillin; Z85.3 Personal history of malignant neoplasm of breast; Z79.82 Long term (current) use of aspirin; Z79.01 Long term (current) use of anticoagulants; Z90.13 Acquired absence of bilateral breasts and nipples; Z90.49 Acquired absence of other specified parts of digestive tract; Z79.899 Other long term (current) drug therapy; Z11.52 Encounter for screening for COVID-19
CPT/HCPCS: 36415; 71045; 80048; 80076; 81001; 83690; 83735; 83880; 84443; 84484; 85025; 85610; 87428; 93005; 93306; 96361; 96372; 96374; 96375; 99285; G0378; J1650; J1938; J7030

== ENCOUNTER 2025-05-09 07:21 | Observation (INO) | payer OTHER ==
[2025-05-09 07:41] LABS: Absolute Lymphocytes (CBC) 1.1 K/uL (0.7-4.9); Hematocrit 43.5 % (36.0-45.0); Hemoglobin 14.8 g/dL (12.0-15.0); MCH 32.0 pg (27.0-35.0); MCHC 33.9 g/dL (32.0-36.0); MCV 94.4 fL (80-100); MPV 7.7 fL (7.6-11.3); Nucleated RBC Absolute Count 0.0 (0-0); Nucleated Red Blood Cells % 0.1 % (0-0); RBC Red Blood Cell Count 4.61 M/uL (3.86-4.86); White Blood Count 6.20 thou/uL (4.3-10.9)
[2025-05-09 07:51] LABS: PT Prothrombin Time 11.3 SECONDS (10-13.0); Protime INR 1.0
[2025-05-09] MEDS ORDERED: ASPIRIN 81 MG CHEWABLE TABLET ONE (07:52)
[2025-05-09] MEDS ORDERED: METOPROLOL TARTRATE 5 MG/5 ML INJ IV ONE (07:52)
[2025-05-09] MEDS ORDERED: METOPROLOL TAR 50 MG TAB ONE (07:52)
[2025-05-09] MEDS ORDERED: NA CHLORIDE 0.9% 500 ML ONE (07:53)
[2025-05-09] MEDS ORDERED: MAGNESIUM SULFATE 1 gm IVPB 1 GM/100 ML BAG IV ONE (07:53)
[2025-05-09] MEDS ORDERED: FAMOTIDINE 20 MG/2 ML VIAL IV ONE (07:53)
--- NOTE | 2025-05-09 08:02 | EDPHYS ---
Physician Documentation [facility] Name: Jackie Cavanaugh Age: 85 yrs Sex: Female : 1940 Arrival Date: 05/09/2025 Time: 07:21 Bed 2 Private MD: ED Physician Brian Richards HPI: 05/09 07:57 This 85 yrs old Female presents to ER via Wheelchair with complaints of ton Palpitations, Chest Pressure. 07:57 The patient presents with a history of irregular heart beat, heart racing. Context: The ton symptoms occur at rest, during sleep. Onset: The symptoms/episode began/occurred today, yesterday. Duration: The patient or guardian reports multiple episodes, with no pattern. Modifying factors: The symptoms are aggravated by nothing. The symptoms are alleviated by nothing. Associated signs and symptoms: Pertinent positives: anxiety, chest pain, near-syncope. Severity of symptoms: At their worst the symptoms were. The patient has not experienced similar symptoms in the past. Historical: - Allergies: 07:46 PENICILLINS; ab3 - Immunization history:: Adult Immunizations up to date. - Infectious Disease History:: Denies. - Social history:: Patient/guardian denies using alcohol, street drugs, tobacco products, The patient lives with spouse, No barriers to communication noted, The patient attends The patient works Smoking status: Patient denies any tobacco usage or history of. - Code Status:: Full code. ROS: 07:58 Constitutional: Negative for fever, chills, and weight loss, Eyes: Negative for injury, ton pain, redness, and discharge, ENT: Negative for injury, pain, and discharge, Neck: Negative for injury, pain, and swelling, Respiratory: Negative for shortness of breath, cough, wheezing, and pleuritic chest pain, Abdomen/GI: Negative for abdominal pain, nausea, vomiting, diarrhea, and constipation, Back: Negative for injury and pain, : Negative for injury, bleeding, discharge, and swelling, MS/Extremity: Negative for injury and deformity, Skin: Negative for injury, rash, and discoloration, Neuro: Negative for headache, weakness, numbness, tingling, and seizure, Psych: Negative for depression, anxiety, suicide ideation, homicidal ideation, and hallucinations, Allergy/Immunology: Negative for hives, rash, and allergies, Endocrine: Negative for neck swelling, polydipsia, polyuria, polyphagia, and marked weight changes, Hematologic/Lymphatic: Negative for swollen nodes, abnormal bleeding, and unusual bruising, 07:58 Cardiovascular: Positive for chest pain, Exam: 07:58 Constitutional: This is a well developed, well nourished patient who is awake, alert, ton and in no acute distress. Head/Face: Normocephalic, atraumatic. Eyes: Pupils equal round and reactive to light, extra-ocular motions intact. Lids and lashes normal. Conjunctiva and sclera are non-icteric and not injected. Cornea within normal limits. Periorbital areas with no swelling, redness, or edema. ENT: Nares patent. No nasal discharge, no septal abnormalities noted. Tympanic membranes are normal and external auditory canals are clear. Oropharynx with no redness, swelling, or masses, exudates, or evidence of obstruction, uvula midline. Mucous membranes moist. Neck: Trachea midline, no thyromegaly or masses palpated, and no cervical lymphadenopathy. Supple, full range of motion without nuchal rigidity, or vertebral point tenderness. No Meningismus. Chest/axilla: Normal chest wall appearance and motion. Nontender with no deformity. No lesions are appreciated. Respiratory: Lungs have equal breath sounds bilaterally, clear to auscultation and percussion. No rales, rhonchi or wheezes noted. No increased work of breathing, no retractions or nasal flaring. Abdomen/GI: Soft, non-tender, with normal bowel sounds. No distension or tympany. No guarding or rebound. No evidence of tenderness throughout. Back: No spinal tenderness. No costovertebral tenderness. Full range of motion. Female : Normal external genitalia. Skin: Warm, dry with normal turgor. Normal color with no rashes, no lesions, and no evidence of cellulitis. MS/ Extremity: Pulses equal, no cyanosis. Neurovascular intact. Full, normal range of motion., bilateral aka Neuro: Awake and alert, GCS 15, oriented to person, place, time, and situation. Cranial nerves II-XII grossly intact. Motor strength 5/5 in all extremities. Sensory grossly intact. Cerebellar exam normal. Normal gait. Psych: Awake, alert, with orientation to person, place and time. Behavior, mood, and affect are within normal limits. 07:58 Cardiovascular: Rate: tachycardic, actual rate is 118 bpm, Rhythm: irregularly irregular, Pulses: Pulses are 4+ in bilateral radial, brachial, femoral, popliteal, posterior tibial and and dorsalis pedis arteries.. Heart sounds: normal, Edema: is not appreciated, JVD: is not appreciated, 07:58 ECG was reviewed by the Attending Physician. Vital Signs: 07:25 BP 120 / 55; Pulse 118; Resp 24; Temp 97.3; Pulse Ox 98% ; Weight 63.5 kg; Height 5 ft. ab3 3 in. ; Pain 2/10; 07:45 BP 122 / 80; Pulse 112; Resp 30; Pulse Ox 97% on R/A; ab3 08:00 Pulse 113; Resp 24; Pulse Ox 98% on R/A; ab3 08:16 BP 105 / 55; Pulse 91; Resp 24; Pulse Ox 98% on R/A; ph 08:18 Pulse 90; ab3 08:45 BP 106 / 73; Pulse 99; Resp 24; Pulse Ox 97% on R/A; Pain 0/10; ab3 08:45 BP 106 / 73; Pulse 99; Resp 24; Pulse Ox 97% on R/A; ab3 08:45 Pain 0/10; ab3 09:00 BP 115 / 73; Pulse 92; Resp 26; Pulse Ox 97% on R/A; ab3 09:30 BP 124 / 63; Pulse 87; Resp 25; Pulse Ox 98% on R/A; ab3 10:00 BP 121 / 70; Pulse 82; Resp 25; Pulse Ox 97% on R/A; ab3 10:30 BP 104 / 67; Pulse 87; Resp 20; Pulse Ox 96% on R/A; ab3 11:00 BP 121 / 83; Pulse 84; Resp 24; Pulse Ox 97% on R/A; ab3 11:30 BP 120 / 65; Pulse 89; Resp 26; Pulse Ox 96% on R/A; ab3 12:20 BP 118 / 69; Pulse 72; Resp 24; Temp 98.1(O); Pulse Ox 97% on R/A; ab3 07:25 Body Mass Index 24.80 (63.50 kg, 160.02 cm) ab3 07:25 Pain Scale: Adult ab3 08:45 Pain Scale: Adult ab3 08:45 Pain Scale: Adult ab3 07:25 chest "pressure" ab3 [place] Coma Score: 07:30 Eye Response: spontaneous(4). Motor Response: obeys commands(6). Verbal Response: ab3 oriented(5). Total: 15. MDM: 07:25 Medical Screening Exam initiated ton 07:59 MARKOS Risk Score: 1 - Patient's age is greater or equal to 65, 1 - 3 or more CAD risk ton factors, 1 - Known CAD, 1 - Recent [<24 hrs] Severe Angina. Differential diagnosis: abnormal EKG, acute myocardial infarction, acute pericarditis, anxiety, coronary artery disease chest wall pain, congestive heart failure arrythmia, dehydration, stress disorder. HEART Score: History: Moderately Suspicious (1), ECG: Non specific repolarization disturbance / LBTB / PM (1), Age: > or = 65 years (2), Risk Factors: > or = 3 Risk factors for atherosclerotic disease (2), [Hypercholesterolemia] [Hypertension] [+ Family HX] [Obesity] Troponin: < or = 1 x Normal Limit (0). The patient was given aspirin in the Emergency Department. Data reviewed: vital signs, nurses notes, EMS record, lab test result(s), EKG, radiologic studies, plain films. Consideration of Admission/Observation Patient was admitted/placed on observation. Escalation of care including admission/observation considered. I considered the following discharge prescriptions or medication management in the emergency department Medications were administered in the Emergency Department. See MAR. Independent interpretation of the following test(s) in the Emergency Department EKG: See my EKG interpretation above. Counseling: I had a detailed discussion with the patient and/or guardian regarding the historical points, exam findings, and any diagnostic results supporting the discharge/admit diagnosis, lab results, radiology results, the need for further work-up and treatment in the hospital. 05/09 07:28 Order name: Basic Metabolic Panel 05/09 07:28 Order name: CBC with Diff; Complete Time: : [facility] 05/09 07:28 Order name: LFT's 05/09 07:28 Order name: Magnesium ton 05/09 07:28 Order name: NT PRO-BNP 05/09 07:28 Order name: PT-INR; Complete Time: 08:20 ton 05/09 07:28 Order name: Troponin HS [facility] 05/09 07:28 Order name: TSH ton 05/09 08:18 Order name: T4 Free EDMS 05/09 10:50 Order name: Lipid Profile EDMS 05/09 10:50 Order name: Basic Metabolic Panel EDMS 05/09 10:50 Order name: Basic Metabolic Panel EDMS 05/09 10:50 Order name: Basic Metabolic Panel EDMS 05/09 10:50 Order name: Basic Metabolic Panel EDMS 05/09 10:50 Order name: CBC with Automated Diff EDMS 05/09 10:50 Order name: CBC with Automated Diff EDMS 05/09 10:50 Order name: CBC with Automated Diff EDMS 05/09 10:50 Order name: CBC with Automated Diff EDMS 05/09 10:50 Order name: Magnesium EDMS 05/09 10:50 Order name: Magnesium EDMS 05/09 10:50 Order name: Magnesium EDMS 05/09 10:50 Order name: Magnesium EDMS 05/09 10:50 Order name: Phosphorus EDMS 05/09 10:50 Order name: Phosphorus EDMS 05/09 10:50 Order name: Phosphorus EDMS 05/09 10:50 Order name: Phosphorus EDMS 05/09 10:50 Order name: Troponin High Sensitivity EDMS 05/09 10:50 Order name: Troponin High Sensitivity EDMS 05/09 10:50 Order name: Troponin High Sensitivity EDMS 05/09 11:00 Order name: T4 Free EDMS 05/09 11:00 Order name: T4 Free EDMS 05/09 07:28 Order name: XRAY Chest (1 view) ton 05/09 07:28 Order name: Echo w/ Doppler ton 05/09 07:28 Order name: EKG; Complete Time: 07:28 ton 05/09 10:50 Order name: Physical Therapy Consult EDMS 05/09 07:28 Order name: Cardiac monitoring; Complete Time: 07:45 ton 05/09 07:28 Order name: EKG - Nurse/Tech; Complete Time: 07:45 ton 05/09 07:28 Order name: IV Saline Lock; Complete Time: 07:45 ton 05/09 07:28 Order name: Labs collected and sent; Complete Time: 07:45 ton 05/09 07:28 Order name: O2 Per Protocol; Complete Time: 07:45 ton 05/09 07:28 Order name: O2 Sat Monitoring; Complete Time: 07:45 ton EC:58 Rate is 112 beats/min. Rhythm is irregularly irregular. QRS [place] is Normal. MO interval ton is normal. QRS interval is normal. QT interval is normal. No Q waves. T waves are Normal. No ST changes noted. Clinical impression: Atrial Fibrillation and No evidence of ischemia. Interpreted by me. Reviewed by me. Administered Medications: 08:11 Drug: Aspirin PO Chewable Tablet 81 mg PO once Route: PO; ph 08:45 Follow up: BP 106 / 73; Pulse 99 bpm; Resp 24 bpm; Pulse Ox 97% RA ab3 08:45 Follow up: Pain 0/10 Adult; Response: No adverse reaction; Pain is decreased ab3 08:11 Drug: NS 0.9% IV 500 ml 500 ml IV at 1 bolus once; to be given as a bolus over 30 ph minutes Volume: 500 ml; Route: IV; Rate: 1 bolus; Site: left forearm; 08:45 Follow up: IV Status: Completed infusion; IV converted to saline lock; IV Intake: 500ml ab3 08:11 Drug: Famotidine IVP 20 mg IVP once; dilute with 10 mL 0.9% NaCl; give over 2 minutes ph Route: IVP; Site: left forearm; 08:11 Drug: Magnesium Sulfate IVPB 1 grams IVPB once over 1 hrs {Note: Given by ANA MARIA MURPHY .} ab3 Route: IVPB; Infused Over: 30 mins; Site: left forearm; 08:41 Follow up: IV Status: Completed infusion ab3 08:12 Drug: Metoprolol IVP 5 mg IVP once; Hold for SBP <100 or HR <60. {Note: admin 2.5 mg ph d/t BP.} Route: IVP; Site: left forearm; 08:18 Follow up: Pulse 90 bpm; Response: Cardiac rhythm changed; Cardiac rhythm changed (rate ab3 decreased) 08:12 Drug: Metoprolol PO 50 mg PO once Route: PO; ph 08:17 Drug: Enoxaparin Sub-Q 60 mg Sub-Q once Route: Sub-Q; Site: right lower abdomen; ab3 08:27 Follow up: Response: No adverse reaction ab3 Disposition: 08:00 Critical Care:. ton Disposition Summary: 05/09/25 08:02 Hospitalization Ordered Notes: Hospitalization Status: Inpatient Admission ton Provider: Baidoo, Charles ton Location: Telemetry/MedSurg (Inpatient) ton Condition: Fair ton Problem: new ton Symptoms: have improved ton Bed/Room Type: Standard ton Room Assignment: 208(05/09/25 10:56) bd Diagnosis - Persistent atrial fibrillation - with rvr ton - Chest pain, unspecified ton Forms: - Medication Reconciliation Form ton - SBAR form ton - Leadership Thank You Letter ton Critical care time excluding procedures: 08:00 Critical care time: Bedside Care: 20 minutes, Consultation: 10 minutes, Family ton Intervention: 10 minutes. Total time: 40 minutes Signatures: Dispatcher [employer] EDMS Huong Gaines Corey, MD MD cha Hall, Patricia RN RN Nabila Maldonado RN RN ab3 Corrections: (The following items were deleted from the chart) 10:56 08:02 ton bd 11:50 11:49 PMHx: Hypertensive disorder; ab3 ab3 11:50 11:49 PSHx: Spinal Cord Stimulator; ab3 ab3 11:50 11:49 PSHx: bilateral breast mastectomy; ab3 ab3 11:50 11:49 PSHx: Appendectomy; ab3 ab3 11:50 11:49 PSHx: Cholecystectomy; ab3 ab3 11:50 11:49 PSHx: Tonsillectomy; ab3 ab3
--- NOTE | 2025-05-09 08:02 | ER ---
Nurse's Notes [facility] Name: Jackie Cavanaugh Age: 85 yrs Sex: Female : 1940 Arrival Date: 05/09/2025 Time: 07:21 Bed 2 Private MD: Diagnosis: Persistent atrial fibrillation-with rvr;Chest pain, unspecified Presentation: 05/09 07:25 Method Of Arrival: Wheelchair ab3 07:25 Chief complaint: Patient states: Pt C/O SOB x1 month that was "worse this morning" with ab3 chest pressure, fatigue and elevated HR. Pt reports she has had a previous episode, and was in A-fib at that time. Pt currently off blood thinners d/t upcoming procedure. Coronavirus screen: Vaccine status: Patient reports receiving the 2nd dose of the covid vaccine. Client denies travel out of the [place] in the last 14 days. Ebola Screen: No symptoms or risks identified at this time. Initial Sepsis Screen: Does the patient meet any 2 criteria? HR > 90 bpm. Does the patient have a suspected source of infection?. 07:25 Risk Assessment: Do you want to hurt yourself or someone else? Patient reports no ab3 desire to harm self or others. Onset of symptoms. Care prior to arrival: None. 07:25 Acuity: ALEXUS 2 ab3 Triage Assessment: 07:25 General: Appears uncomfortable, well groomed. General: Behavior is calm, cooperative. ab3 07:25 Pain: Complains of pain in chest Pain currently is 2 out of 10 on a pain scale. level ab3 that patient reports is acceptable is 2 out of 10 on a pain scale. Quality of pain is described as pressure/heavy. EENT: No deficits noted. Neuro: No deficits noted. Cardiovascular: Reports chest pain, fatigue, shortness of breath, since SOB X 1 month, but acute worsening of such with new onset chest pressure, acute fatigue and rapid HR since this morning at approx 0650. Denies Heart tones S1 S2 present Capillary refill < 3 seconds Clubbing of nail beds is absent JVD is absent Patient's skin is warm and dry. Pulses are all present. Rhythm is atrial fibrillation with rapid ventricular response Chest pain is described as mild, quality is pressure. Respiratory: Reports shortness of breath at rest on exertion Airway is patent Trachea midline Respiratory effort is even, unlabored, Respiratory pattern is tachypnea. GI: No deficits noted. : No deficits noted. Derm: No deficits noted. Musculoskeletal: No deficits noted. Historical: - Allergies: 07:46 PENICILLINS; ab3 - Immunization history:: Adult Immunizations up to date. - Infectious Disease History:: Denies. - Social history:: Patient/guardian denies using alcohol, street drugs, tobacco products, The patient lives with spouse, No barriers to communication noted, The patient attends The patient works Smoking status: Patient denies any tobacco usage or history of. - Code Status:: Full code. Screenin:07 [facility] ED Fall Risk Assessment (Adult) History of falling in the last 3 months, ab3 including since admission No falls in past 3 months (0 pts) Confusion or Disorientation No (0 pts) Intoxicated or Sedated No (0 pts) Impaired Gait Yes (1 pt) Mobility Assist Device Used Yes (1 pt) Altered Elimination No (0 pt) Score/Fall Risk Level 0 - 2 = Low Risk Oriented to surroundings, Maintained a safe environment, Educated pt \\T\\ family on fall prevention, incl call for assistance when getting out of bed, Assessed \\T\\ reinforced patient's understanding of fall precautions, Provided non-skid footwear, Hourly rounding (assess needs \\T\\ fall precautionary measures) done. Abuse screen: Denies threats or abuse. Denies injuries from another. Nutritional screening: No deficits noted. Tuberculosis screening: No symptoms or risk factors identified. Assessment: 07:30 Pain: Pain does not radiate. ab3 07:30 Pain: Pain began gradually, 30 min ago. ab3 07:55 General: See triage assessment. ab3 11:30 Reassessment: REPORT FAXED TO RM 208. bp Vital Signs: 07:25 BP 120 / 55; Pulse 118; Resp 24; Temp 97.3; Pulse Ox 98% ; Weight 63.5 kg; Height 5 ft. ab3 3 in. ; Pain 2/10; 07:45 BP 122 / 80; Pulse 112; Resp 30; Pulse Ox 97% on R/A; ab3 08:00 Pulse 113; Resp 24; Pulse Ox 98% on R/A; ab3 08:16 BP 105 / 55; Pulse 91; Resp 24; Pulse Ox 98% on R/A; ph 08:18 Pulse 90; ab3 08:45 BP 106 / 73; Pulse 99; Resp 24; Pulse Ox 97% on R/A; Pain 0/10; ab3 08:45 BP 106 / 73; Pulse 99; Resp 24; Pulse Ox 97% on R/A; ab3 08:45 Pain 0/10; ab3 09:00 BP 115 / 73; Pulse 92; Resp 26; Pulse Ox 97% on R/A; ab3 09:30 BP 124 / 63; Pulse 87; Resp 25; Pulse Ox 98% on R/A; ab3 10:00 BP 121 / 70; Pulse 82; Resp 25; Pulse Ox 97% on R/A; ab3 10:30 BP 104 / 67; Pulse 87; Resp 20; Pulse Ox 96% on R/A; ab3 11:00 BP 121 / 83; Pulse 84; Resp 24; Pulse Ox 97% on R/A; ab3 11:30 BP 120 / 65; Pulse 89; Resp 26; Pulse Ox 96% on R/A; ab3 12:20 BP 118 / 69; Pulse 72; Resp 24; Temp 98.1(O); Pulse Ox 97% on R/A; ab3 07:25 Body Mass Index 24.80 (63.50 kg, 160.02 cm) ab3 07:25 Pain Scale: Adult ab3 08:45 Pain Scale: Adult ab3 08:45 Pain Scale: Adult ab3 07:25 chest "pressure" ab3 Vitals: 07:45 Cardiac Rhythm Assessment Irregular Atrial fibrillation W/rapid ventricular response. ab3 08:16 Cardiac Rhythm Assessment Atrial fibrillation. ph [place] Coma Score: 07:30 Eye Response: spontaneous(4). Motor Response: obeys commands(6). Verbal Response: ab3 oriented(5). Total: 15. ED Course: 07:22 Patient arrived in ED. im 07:25 Brian Richards MD is Attending Physician. ton 07:30 Patient has correct armband on for positive identification. Placed in gown. Bed in low ab3 position. Call light in reach. Side rails up X 1. Adult w/ patient. Provided Education on: Estimated time for results, POC, Fall precautions and call light. 07:30 Client placed on continuous cardiac and pulse oximetry monitoring. NIBP monitoring ab3 applied. lathe scalper operator on. Pulse ox on. NIBP on. 07:30 Initial lab(s) drawn, by me, sent to lab. ab3 07:30 Inserted saline lock: 20 gauge in left forearm, using aseptic technique. Blood ab3 collected. Flushed with 10 mL NS. Patient maintains SpO2 saturation greater than 95% on room air. 07:35 Arm band placed on right wrist. EKG completed in triage. Results shown to MD. ab3 07:35 EKG done, by ED staff, reviewed by Brian Richards MD. ab3 07:45 Adrian Barkley, ANA MARIA is Primary Nurse. bp 07:46 Triage completed. ab3 08:01 Charles Pena is Hospitalizing Provider. ton 08:20 XRAY Chest (1 view) In Process Unspecified. EDMS 12:25 No provider procedures requiring assistance completed. ab3 12:27 Patient admitted, IV remains in place. ab3 12:28 Room 208 with tech. ab3 Administered Medications: 08:11 Drug: Aspirin PO Chewable Tablet 81 mg PO once Route: PO; ph 08:45 Follow up: BP 106 / 73; Pulse 99 bpm; Resp 24 bpm; Pulse Ox 97% RA ab3 08:45 Follow up: Pain 0/10 Adult; Response: No adverse reaction; Pain is decreased ab3 08:11 Drug: NS 0.9% IV 500 ml 500 ml IV at 1 bolus once; to be given as a bolus over 30 ph minutes Volume: 500 ml; Route: IV; Rate: 1 bolus; Site: left forearm; 08:45 Follow up: IV Status: Completed infusion; IV converted to saline lock; IV Intake: 500ml ab3 08:11 Drug: Famotidine IVP 20 mg IVP once; dilute with 10 mL 0.9% NaCl; give over 2 minutes ph Route: IVP; Site: left forearm; 08:11 Drug: Magnesium Sulfate IVPB 1 grams IVPB once over 1 hrs {Note: Given by ANA MARIA MURPHY .} ab3 Route: IVPB; Infused Over: 30 mins; Site: left forearm; 08:41 Follow up: IV Status: Completed infusion ab3 08:12 Drug: Metoprolol IVP 5 mg IVP once; Hold for SBP <100 or HR <60. {Note: admin 2.5 mg ph d/t BP.} Route: IVP; Site: left forearm; 08:18 Follow up: Pulse 90 bpm; Response: Cardiac rhythm changed; Cardiac rhythm changed (rate ab3 decreased) 08:12 Drug: Metoprolol PO 50 mg PO once Route: PO; ph 08:17 Drug: Enoxaparin Sub-Q 60 mg Sub-Q once Route: Sub-Q; Site: right lower abdomen; ab3 08:27 Follow up: Response: No adverse reaction ab3 Medication: 08:16 VIS not applicable for this client. ph Intake: 08:45 IV: 500ml; Total: 500ml. ab3 Outcome: 08:02 Decision to Hospitalize by Provider. ton 11:51 Condition: stable ab3 12:25 Admitted to Tele accompanied by tech, via wheelchair, room 208, on monitor, Report ab3 called to Faxed to unit; orchid transplanter verified reciept 12:25 Instructed on the need for admit, safety practices, 12:30 Patient left the ED. ab3 Signatures: Dispatcher [employer] EDBrian Manjarrez MD MD cha Hall, Patricia, RN RN ph [place], Brian RN RN Bisi Seo Allie RN RN ab3 Corrections: (The following items were deleted from the chart) 08:56 07:45 BP 122 / 80; Pulse 112bpm; Resp 30bpm; Pulse Ox 97% RA; ab3 ab3 08:57 07:45 BP 122 / 80; Pulse 112bpm; Resp 30bpm; Pulse Ox 97% RA; ab3 ab3 11:50 11:49 PMHx: Hypertensive disorder; ab3 ab3 11:50 11:49 PSHx: Spinal Cord Stimulator; ab3 ab3 11:50 11:49 PSHx: bilateral breast mastectomy; ab3 ab3 11:50 11:49 PSHx: Appendectomy; ab3 ab3 11:50 11:49 PSHx: Cholecystectomy; ab3 ab3 11:50 11:49 PSHx: Tonsillectomy; ab3 ab3
[2025-05-09 08:11] LABS: Albumin 3.7 g/dL (3.4-5.0); Albumin/Globulin Ratio 1.2 (1.1-1.8); Alkaline Phosphatase 120 U/L (45-117); Anion Gap 12.8 mEq/L (5.0-15.0); BUN Blood Urea Nitrogen 23 mg/dL (7-18); Bilirubin Indirect, Calculated 0.6 mg/dL (0.2-0.8); Globulin 3.2 g/dL (2.3-3.5); Glucose Level 110 mg/dL (74-106); NT PRO-BNP 466 pg/mL (<450); Troponin High Sensitivity 11.2 pg/mL (<58.9)
[2025-05-09 08:15] LABS: ALT/SGPT < 14 U/L (13-56); AST/SGOT 17 U/L (15-37); Magnesium 2.2 mg/dL (1.6-2.4); Potassium 3.8 mEq/L (3.5-5.1); Thyroid Stimulating Hormone 4.720 uIU/mL (0.358-3.740)
[2025-05-09] MEDS ORDERED: ENOXAPARIN 60 MG/0.6 ML SQ ONE (08:16)
--- NOTE | 2025-05-09 08:23 | RAD REPORT ---
EXAM: Chest Single View HISTORY: 85 years Female PALPITATIONS COMPARISON: 01/20/2025 FINDINGS: LUNGS/PLEURA: The lungs are clear. No pleural effusions or pneumothorax. No pulmonary edema. CARDIAC/MEDIASTINUM: The cardiac silhouette is within normal limits. UPPER ABDOMEN: No significant abnormality. BONES: No acute abnormality. Spinal stimulator. LINES/TUBES/OTHER: N/A IMPRESSION: No evidence of acute cardiopulmonary disease.
[2025-05-09] MEDS ORDERED: ACETAMINOPHEN 325 MG TABLET PO PRN (10:44)
--- NOTE | 2025-05-09 10:50 | ECHO ---
HEIGHT: ft in WEIGHT: lb oz DATE OF STUDY: 05/09/[address]: Brian Richards MD 2-DIMENSIONAL: YES M.MODE: YES DOPPLER: YES COLOR FLOW: YES TDS: PORTABLE: YES DEFINITY: BUBBLE STUDY: DIAGNOSIS: ATRIAL FIBRILLATION CARDIAC HISTORY: CATHERIZATION: NO SURGERY: NO PROSTHETIC VALVE: NO PACEMAKER: NO MEASUREMENTS (cm) DIASTOLIC (NORMALS) SYSTOLIC (NORMALS) IVSd 1.1 (0.6-1.2) LA Diam 4.5 (1.9-4.0) LVEF 60-65% LVIDd 3.7 (3.5-5.7) LVIDs 2.2 (2.0-3.5) %FS 40% LVPWd 1.3 (0.6-1.2) Ao Diam 3.1 (2.0-3.7) 2 DIMENSIONAL ASSESSMENT: RIGHT ATRIUM: NORMAL LEFT ATRIUM: SEVERELY DILATED RIGHT VENTRICLE: NORMAL LEFT VENTRICLE: NORMAL TRICUSPID VALVE: MILD TRICUSPID REGURGITATION MITRAL VALVE: SEVERE MITRAL ANNULAR CALCIFICATION PULMONIC VALVE: NORMAL AORTIC VALVE: NORMAL PERICARDIAL EFFUSION: NONE AORTIC ROOT: NORMAL LEFT VENTRICULAR WALL MOTION: NORMAL DOPPLER/COLOR FLOW: DIASTOLIC DYSFUNCTION COMMENTS: 1. SEVERELY DILATED LEFT ATRIAL 2. NORMAL LEFT VENTRICULAR SYSTOLIC FUNCTION, EJECTION FRACTION 60-65%, NORMAL WALL MOTION 3. NORMAL FILLING PRESSURE TECHNOLOGIST: RYLAND GAVIN
--- NOTE | 2025-05-09 10:57 | P.HP ---
Certification for Inpatient Patient admitted to: Inpatient With expected LOS: >2 Midnights Practitioner: I am a practitioner with admitting privileges, knowledge of patient current condition, hospital course, and medical plan of care. Services: Services provided to patient in accordance with Admission requirements found in Title 42 Section 412.3 of the Code of Federal Regulations Patient History Date of Service: 05/09/25 Reason for admission: A-fib with RVR, chest tightness History of Present Illness: Jackie Cavanaugh is a 85-year-old female with past medical history of hyper tension, hyperlipidemia, CHF, atrial fibrillation, chronic back pain at L4 with spinal cord stimulator who presents to the ED with chest tightness that began last night. reports using a pulse oximeter to monitor her heart rate and noticed it was very high. She came to the ED via their vehicle. Evaluation in the ED revealed TSH greater than 4, EKG showing A-fib with RVR heart rate 112. Laboratory evaluation significant for serum glucose 110, alk phos 120, BNP 466, HDL cholesterol 78, TSH 4.720/Free T41.13. Chest x-ray reports " no evidence of acute cardiopulmonary disease" Jackie will be admitted to hospitalist service for further evaluation and treatment of A-fib with RVR, Dr. Santoro consulted. Allergies adhesive tape Allergy (Verified 12/15/22 13:23) Rash/Bubbles Penicillins Allergy (Verified 12/15/22 13:23) Rash Home Medications: Dapagliflozin Propanediol [Farxiga] 10 mg PO DAILY 01/20/25 Donepezil HCl [Aricept] 23 mg PO DAILY 01/20/25 Furosemide 20 mg PO DAILY 01/20/25 Sacubitril/Valsartan [Entresto 49 mg-51 mg Tablet] 1 each PO BID 01/20/25 Spironolactone 25 mg PO DAILY 01/20/25 methocarbamoL [Methocarbamol] 500 mg PO Q8HP PRN 01/20/25 Apixaban [Eliquis] 5 mg PO BID #60 tab 01/22/25 Apixaban [Eliquis] 5 mg PO BID #60 tab 01/22/25 Sotalol HCl [Betapace*] 80 mg PO BID 6AM 6PM #60 tab 01/22/25 - Past Medical/Surgical History -: CHF -: Hypertension -: Breast cancer -: Hyperlipidemia -: Atrial fibrillation -: Chronic pain L4 -: Cholecystectomy -: mastectomy -: Appendectomy -: Spinal cord stimulator Psychosocial/ Personal History: Lives at home with her - Social History Smoking Status: Never smoker Alcohol use: No CD- Drugs: No Caffeine use: No Review of Systems Other: Per HPI Physical Examination - Physical Exam General: Alert, In no apparent distress HEENT: Atraumatic, Normocephalic Neck: Supple, 2+ carotid pulse no bruit Respiratory: Clear to auscultation bilaterally, Normal air movement Cardiovascular: Normal pulses, Irregular heart rate/rhythm (Afib) Gastrointestinal: Normal bowel sounds, Soft and benign Musculoskeletal: No clubbing Integumentary: No rashes Neurological: Normal speech, Normal tone - Studies Laboratory Data (last 24 hrs) 05/09/25 05/09/25 05/09/25 07:30 07:30 07:30 WBC 6.20 Hgb 14.8 Hct 43.5 Plt Count 240 PT 11.3 INR 1.00 Sodium 140 Potassium 3.8 BUN 23 H Creatinine 0.95 Glucose 110 H Magnesium 2.2 Total Bilirubin 0.8 AST 17 ALT < 14 Alkaline Phosphatase 120 H Assessment and Plan - Plan Assessment and Plan Afib with RVR New Hypothyroidsim - Continuous telemetry - Continue Eliquis - Consult cardiology, recommend restarting home medications including sotalol and Lasix IV - Lopressor as needed - Lipid panel pending -Trend troponin -Echo reports " EF 66 5%, severe mitral annular calcification, mild tricuspid regurgitation, severe dilated right left atrium, diastolic dysfunction" - TSH greater than 4, free T4 1.13 - Will need to follow-up with PCP outpatient Hypothyroidism -Elevated TSH -Free T4 pending Hypertension Hyperlipidemia Chronic back pain at L4 with spinal cord stimulator -Continue home medication -Plan for a spinal cord stimulator battery exchange on Wednesday, will hold Eliquis DVT PPx holding Eliquis, Heparin Full code LOS 24-hour OBS Discharge Plan: Home Plan to discharge in: 48 Hours - Advance Directives Does patient have a Living Will: No Does patient have a Durable POA for Healthcare: Yes Time Spent Managing Pts Care (In Minutes): 60
--- NOTE | 2025-05-09 11:50 | P.CNS ---
Date of Consult: 05/09/25 Chief Complaint: A-fib with RVR, chest tightness History of Present Illness: Patient with PMH of Heart failure preserved EF, atrial fibrillation, presented with chest discomfort, palpitations, denies any other cardiac symptoms. Allergies adhesive tape Allergy (Verified 12/15/22 13:23) Rash/Bubbles Penicillins Allergy (Verified 12/15/22 13:23) Rash Home medications list reviewed: Yes Home Medications: Dapagliflozin Propanediol [Farxiga] 10 mg PO DAILY 01/20/25 Donepezil HCl [Aricept] 23 mg PO DAILY 01/20/25 Furosemide 20 mg PO DAILY 01/20/25 Sacubitril/Valsartan [Entresto 49 mg-51 mg Tablet] 1 each PO BID 01/20/25 Spironolactone 25 mg PO DAILY 01/20/25 methocarbamoL [Methocarbamol] 500 mg PO Q8HP PRN 01/20/25 Apixaban [Eliquis] 5 mg PO BID #60 tab 01/22/25 Apixaban [Eliquis] 5 mg PO BID #60 tab 01/22/25 Sotalol HCl [Betapace*] 80 mg PO BID 6AM 6PM #60 tab 01/22/25 - Past Medical/Surgical History -: CHF -: Hypertension -: Breast cancer -: Cholecystectomy -: mastectomy -: Appendectomy Psychosocial/ Personal History: Lives at home with her - Social History Alcohol use: No CD- Drugs: No Caffeine use: No Review of Systems 10-point ROS is otherwise unremarkable Physical Examination General: Alert, In no apparent distress HEENT: Atraumatic, PERRLA, Mucous membr. moist/pink, EOMI, Sclerae nonicteric Neck: Supple, 2+ carotid pulse no bruit, No LAD, Without JVD or thyroid abno rmality Respiratory: Clear to auscultation bilaterally, Normal air movement Cardiovascular: Normal S1 S2, Irregular heart rate/rhythm Gastrointestinal: Normal bowel sounds, No tenderness Musculoskeletal: No tenderness Integumentary: No rashes Neurological: Normal gait, Normal speech, Normal tone, Normal affect Lymphatics: No axilla or inguinal lymphadenopathy Laboratory Data (last 24 hrs) 05/09/25 05/09/25 05/09/25 07:30 07:30 07:30 WBC 6.20 Hgb 14.8 Hct 43.5 Plt Count 240 PT 11.3 INR 1.00 Sodium 140 Potassium 3.8 BUN 23 H Creatinine 0.95 Glucose 110 H Magnesium 2.2 Total Bilirubin 0.8 AST 17 ALT < 14 Alkaline Phosphatase 120 H - Problems (1) Atrial fibrillation Current Visit: No Status: Acute Plan: re start patient on Sotalol 80 mg po BID Hold eliquis for now as patient got a procedure scheduled for Wednesday. monitor on tele (2) Chronic diastolic heart failure Current Visit: No Status: Acute Plan: lasix 20 mg IV BID resume patient Entresto, Aldactone and farxiga continue to monitor input and output and electrolytes.
[2025-05-09] MEDS: SOTALOL HCL 80 MG TAB PO SCH (12:54)
[2025-05-09 13:05] VITALS: BMI 26.5
[2025-05-09 13:56] LABS: HDL Cholesterol 78.0 mg/dL (40-60); LDL Cholesterol, Calculated 68.0 mg/dL (<130); LDL Cholesterol,Calc NonReport 68.0
[2025-05-09] MEDS: FUROSEMIDE 20 MG/ 2ML VIAL IV SCH (17:41)
[2025-05-09 18:33] VITALS: O2SAT 97
[2025-05-09] MEDS: HEPARIN 5000 UNIT/ML 1 ML VIAL SQ SCH (19:00)
[2025-05-09] MEDS: ATORVASTATIN 40 MG TAB PO SCH (20:32)
[2025-05-09] MEDS: SACUBITRIL/VALSARTAN 49/51 MG TAB PO SCH (20:32)
[2025-05-09] MEDS ORDERED: APIXABAN 5 MG TABLET PO SCH (21:00)
[2025-05-10 06:35] LABS: Absolute Lymphocytes (CBC) 1.3 K/uL (0.7-4.9); Hematocrit 38.6 % (36.0-45.0); Hemoglobin 13.1 g/dL (12.0-15.0); MCH 31.9 pg (27.0-35.0); MCHC 33.9 g/dL (32.0-36.0); MCV 94.2 fL (80-100); MPV 8.0 fL (7.6-11.3); Nucleated RBC Absolute Count 0.0 (0-0); Nucleated Red Blood Cells % 0.0 % (0-0); RBC Red Blood Cell Count 4.10 M/uL (3.86-4.86); White Blood Count 5.00 thou/uL (4.3-10.9)
[2025-05-10 06:45] LABS: Anion Gap 9.4 mEq/L (5.0-15.0); BUN Blood Urea Nitrogen 30.0 mg/dL (7-18); Glucose Level 92.0 mg/dL (74-106); Magnesium 2.3 mg/dL (1.6-2.4); Potassium 3.4 mEq/L (3.5-5.1)
[2025-05-10] MEDS: Dapagliflozin Propanediol [Farxiga] 10 MG Tablet *PT OWN MED PO SCH (08:57)
[2025-05-10] MEDS: ASPIRIN EC 81 MG TAB PO SCH (08:58)
[2025-05-10] MEDS: POTASSIUM CL SA 10 MEQ TAB PO ONE (09:00)
[2025-05-10 09:01] VITALS: BP 165/81; TEMP 97.9
[2025-05-10] MEDS: SPIRONOLACTONE 25 MG TABLET PO SCH (09:01)
--- NOTE | 2025-05-10 09:41 | P.DS ---
Admission Date: 05/09/25 Discharge Date: 05/10/25 Disposition: ROUTINE DISCHARGE Discharge Condition: GOOD Reason for Admission: A-fib with RVR, chest tightness Brief History of Present Illness: Jackie Cavanaugh is a 85-year-old female with past medical history of hypertension, hyperlipidemia, CHF, atrial fibrillation, chronic back pain at L4 with spinal cord stimulator who presents to the ED with chest tightness that began last night. reports using a pulse oximeter to monitor her heart rate and noticed it was very high. She came to the ED via their vehicle. Evaluation in the ED revealed TSH greater than 4, EKG showing A-fib with RVR heart rate 112. Laboratory evaluation significant for serum glucose 110, alk phos 120, BNP 466, HDL cholesterol 78, TSH 4.720/Free T41.13. Chest x-ray reports " no evidence of acute cardiopulmonary disease" Jackie will be admitted to hospitalist service for further evaluation and treatment of A-fib with RVR, Dr. Santoro consulted. Vital Signs/Physical Exam: Temp Pulse Resp BP Pulse Ox 97.9 F 67 24 H 165/81 H 99 05/10/25 08:00 05/10/25 08:00 05/10/25 08:00 05/10/25 08:00 05/10/25 08:00 Laboratory Data at Discharge: WBC 5.00 thou/uL (4.3-10.9) 05/10/25 06:02 Hgb 13.1 g/dL (12.0-15.0) D 05/10/25 06:02 Hct 38.6 % (36.0-45.0) 05/10/25 06:02 Plt Count 220 thou/uL (152-406) 05/10/25 06:02 PT 11.3 SECONDS (10-13.0) 05/09/25 07:30 INR 1.00 05/09/25 07:30 Sodium 142 mEq/L (136-145) 05/10/25 06:02 Potassium 3.4 mEq/L (3.5-5.1) L 05/10/25 06:02 BUN 30 mg/dL (7-18) H 05/10/25 06:02 Creatinine 0.92 mg/dL (0.55-1.02) 05/10/25 06:02 Glucose 92 mg/dL (74-106) 05/10/25 06:02 Phosphorus 3.1 mg/dL (2.5-4.9) 05/10/25 06:02 Magnesium 2.3 mg/dL (1.6-2.4) 05/10/25 06:02 Total Bilirubin 0.8 mg/dL (0.2-1.0) 05/09/25 07:30 AST 17 U/L (15-37) 05/09/25 07:30 ALT < 14 U/L (13-56) 05/09/25 07:30 Alkaline Phosphatase 120 U/L (45-117) H 05/09/25 07:30 Triglycerides 112 mg/dL (<150) 05/09/25 07:30 Cholesterol 168 mg/dL (<200) 05/09/25 07:30 HDL Cholesterol 78 mg/dL (40-60) H 05/09/25 07:30 Cholesterol/HDL Ratio 2.15 05/09/25 07:30 Home Medications: Dapagliflozin Propanediol [Farxiga] 10 mg PO DAILY 01/20/25 Donepezil HCl [Aricept] 23 mg PO DAILY 01/20/25 Furosemide 20 mg PO DAILY 01/20/25 Sacubitril/Valsartan [Entresto 49 mg-51 mg Tablet] 1 each PO BID 01/20/25 Spironolactone 25 mg PO DAILY 01/20/25 methocarbamoL [Methocarbamol] 500 mg PO BID 01/20/25 Glucosamine/Chondroitin A/MSM [[id number]-[id number]-ABM Tb] 1 tab PO DAILY 05/09/25 Simvastatin 10 mg PO DAILY 05/09/25 Atorvastatin Calcium [Lipitor] 40 mg PO BEDTIME tab 05/10/25 Sotalol HCl [Betapace*] 40 mg PO BID 30 Days #30 tab 05/10/25 New Medications: Sotalol HCl [Betapace*] 40 mg PO BID 30 Days #30 tab Physician Discharge Instructions: 1. Please call and schedule a follow-up appointment with your PCP in 3-5 days - Please follow-up with your PCP for medication refills/adjustments -Discuss TSH thyroid level 2. Please call and schedule a follow-up appointment with Dr. Santoro in one week -Starting sotalol for Afib, please check your blood pressure twice daily and keep a record for Dr. Santoro, This medication will need your heart and labs frequently evaluated. 3. Continue heart healthy diet 4. activity restrictions fall precautions if lightheaded 5. Return to the ED if symptoms worsen New medications Sotalol 40 mg twice daily, this is prescribed as 80 mg and the tablet will need to be cut in half to take one half in the morning and the other half in the evening Diet: AHA Activity: Fall precautions Followup: Danyelle Rodas [Primary Care Provider] - Ricky Santoro MD [ACTIVE - CAN ADMIT] -
--- NOTE | 2025-05-10 09:44 | P.PN ---
Subjective Date of Service: 05/10/25 Chief Complaint: A-fib with RVR, chest tightness Subjective: No new changes, No C/O voiced, Tolerating diet, Ambulating, Improving Review of Systems 10-point ROS is otherwise unremarkable Physical Examination - Vital Signs Temperature: 97.9 F Blood Pressure: 165/81 Pulse: 67 Respirations: 24 Pulse Ox (%): 99 - Physical Exam General: Alert, In no apparent distress HEENT: Atraumatic, PERRLA, EOMI Neck: Supple, JVD not distended Respiratory: Clear to auscultation bilaterally, Normal air movement Cardiovascular: Regular rate/rhythm, Normal S1 S2 Gastrointestinal: Normal bowel sounds, No tenderness Musculoskeletal: No tenderness Integumentary: No rashes Neurological: Normal speech, Normal tone, Normal affect Lymphatics: No axilla or inguinal lymphadenopathy - Studies Laboratory Data (last 24 hrs) 05/09/25 07:30 Triglycerides 112 Cholesterol 168 HDL Cholesterol 78 H Cholesterol/HDL Ratio 2.15 Medications List Reviewed: Yes Assessment And Plan - Current Problems (Diagnosis) (1) Atrial fibrillation Current Visit: No Status: Acute Plan: Lower Sotalol to 40 mg po BID Hold eliquis for now as patient got a procedure scheduled for Wednesday. monitor on tele (2) Chronic diastolic heart failure Current Visit: No Status: Acute Plan: lasix 20 mg IV BID until discharge then continue lasix 20 mg daily resume patient Entresto, Aldactone and farxiga continue to monitor input and output and electrolytes.
== END 2025-05-10 10:56 | disposition home or self-care (01) ==
LOC: ER 07:21 → ERHOLD 10:44 → 2ND 11:56
PROVIDERS: ADMIT Internal Medicine; ATTEND Internal Medicine
DX: I48.11 Longstanding persistent atrial fibrillation (principal); E03.9 Hypothyroidism, unspecified; I10 Essential (primary) hypertension; E78.5 Hyperlipidemia, unspecified; M54.9 Dorsalgia, unspecified; G89.29 Other chronic pain; I50.32 Chronic diastolic (congestive) heart failure; Z88.0 Allergy status to penicillin; Z79.01 Long term (current) use of anticoagulants
CPT/HCPCS: 96365; 93005 ×3; 93306; 85025 ×2; 80048 ×2; 36415; 83735 ×2; 84100; 85610; 80061; 80076; 84443; 84484 ×3; 84439; 83880; 71045; 96375; 96372; 99285; J3475; J1650; J1938 ×2; J7040; G0378